=== PATIENT | female | born 1940 | race American Indian/Alaskan Native ===

== ENCOUNTER 2017-06-05 15:33 | Inpatient (IN) | payer OTHER, MEDICARE ==
[2017-06-05] MEDS ORDERED: ASPIRIN 81 MG CHEWABLE TABLETS PO ONE (16:10)
--- NOTE | 2017-06-05 16:10 | PDOC ---
History of Present Illness - General History Source: Patient, Family Exam Limitations: No Limitations - History of Present Illness Initial Comments: 06/05/17 16:42 The patient is a 77 year old female, with a significant past medical history of COPD, AFib (on Xarelto), hypertension, hyperlipidemia, CVA (brain stem), who presents to the emergency department with persistent cough, low-grade fever, and shortness of breath for about 4 days. The patient states she becomes more SOB with shorter distances but also states she was unable to walk far without being SOB prior to her recent onset of symptoms. The patient presents with family who reportedly took the patient to [facility] on Saturday, 06/03, where she had a CXR positive for left lower base atelectasis and sent home with "two antibiotics and an inhaler". The patient states her symptoms progressed yesterday, 06/04, despite starting the Abx and ventolin inhaler the night before and went to see a ticket machine operator (Dr. August Cuba) at [facility] where she had blood work and a chest CT which was normal. She denies chest pain, headache and dizziness. She denies fever, chills, nausea , vomit, diarrhea and constipation. She denies dysuria, frequency, urgency and hematuria. Allergies: NKDA PCP: Dr. Minal Cast, (patient states she is transferring care to Dr. Jose Wen) <Fabiana Cm - Last Filed: 06/05/17 16:57> - General History Source: Patient Exam Limitations: No Limitations <Carly Toure - Last Filed: 06/05/17 18:31> - General Chief Complaint: Shortness of Breath Stated Complaint: DIFF. BREATHING Time Seen by Provider: 06/05/17 16:10 Past History <Fabiana Cm - Last Filed: 06/05/17 16:57> - Past Medical History Anemia: No Asthma: No Cancer: No Cardiac Disorders: Yes (ASHD, SOB(HAD STRESS TEST)) CVA: No COPD: No CHF: No Dementia: No Diabetes: No GI Disorders: Yes (DIVERTICULOSIS, COLON POLYPS) Disorders: No HTN: Yes Hypercholesterolemia: Yes Liver Disease: No Seizures: No Thyroid Disease: Yes - Surgical History Abdominal Surgery: No Appendectomy: No Cardiac Surgery: No Cholecystectomy: No Lung Surgery: No Neurologic Surgery: No Orthopedic Surgery: Yes (carpo-tunnel right hand) - Suicide/Smoking/Psychosocial Hx Smoking History: Former smoker Have you smoked in the past 12 months: No If you are a former smoker, when did you quit?: 1989 Information on smoking cessation initiated: No Hx Alcohol Use: No Drug/Substance Use Hx: No Substance Use Type: None <Carly Toure - Last Filed: 06/05/17 18:31> - Past Medical History Allergies/Adverse Reactions: Allergies Allergy/AdvReac Type Severity Reaction Status Date / Time shellfish derived Allergy Verified 06/05/17 15:53 Home Medications: Ambulatory Orders Levothyroxine [Synthroid -] 75 mcg PO DAILY 06/11/11 Metoprolol Succinate [Toprol XL -] 50 mg PO DAILY 06/27/12 Cholecalciferol (Vitamin D3) [Vitamin D3] 32,000 unit PO DAILY 09/17/14 Albuterol Sulfate Inhaler - [Ventolin Hfa Inhaler -] 1 puff IH DAILY 06/05/17 Atorvastatin Ca [Lipitor] 40 mg PO HS 06/05/17 Lisinopril/Hydrochlorothiazide [Zestoretic 10-12.5 mg Tablet] 1 each PO DAILY Rivaroxaban [Xarelto -] 20 mg PO DAILY 06/05/17 Tiotropium [place] [Spiriva] 1 inh IH DAILY 06/05/17 Review of Systems - Review of Systems Able to Perform ROS?: Yes Comments:: 06/05/17 16:54 CONSTITUTIONAL: Absent: fever, no chills, no fatigue EYES: Absent: visual changes ENT: Absent: ear pain, no sore throat CARDIOVASCULAR: Absent: chest pain, no palpitations RESPIRATORY: (+) cough, SOB, FIELD GASTROINTESTINAL: Absent: abdominal pain, no nausea, no vomiting, no constipation, no diarrhea GENITOURINARY: Absent: dysuria, no frequency, no hematuria MUSCULOSKELETAL: Absent: back pain, no arthralgia, no myalgia SKIN: Absent: rash NEURO: Absent: headache <Fabiana Cm - Last Filed: 06/05/17 16:57> *Physical Exam - Vital Signs Last Vital Signs Temp Pulse Resp BP Pulse Ox 99.2 F 87 18 121/83 100 06/05/17 15:35 06/05/17 15:35 06/05/17 15:35 06/05/17 15:35 06/05/17 15:35 - Physical Exam Comments: 06/05/17 16:55 GENERAL: (+) The patient is in mild distress HEAD: Normal with no signs of trauma. EYES: PERRLA, EOMI, sclera anicteric, conjunctiva clear. ENT: Ears normal, nares patent, oropharynx clear without exudates. Moist mucous membranes. NECK: Normal range of motion, supple without lymphadenopathy, JVD, or masses. LUNGS: (+) diminished breath sounds, end-expiratory wheezes, ronchi diffusely. Conversational dyspnea. HEART:(+) Irregularly Irregular. normal S1 and S2 without murmur, rub or gallop. ABDOMEN: Soft, nontender, normoactive bowel sounds. No guarding, no rebound. No masses palpable. EXTREMITIES: Normal range of motion, no edema. No clubbing or cyanosis. No erythema, or tenderness. NEUROLOGICAL: Cranial nerves II through XII grossly intact. Normal speech. No focal neurological deficits. MUSCULOSKELETAL: Back non-tender to palpation, no CVA tenderness SKIN: Warm, Dry, normal turgor, no rashes or lesions noted. <Fabiana Cm - Last Filed: 06/05/17 16:57> - Vital Signs Last Vital Signs Temp Pulse Resp BP Pulse Ox 99.2 F 87 18 121/83 100 06/05/17 15:35 06/05/17 15:35 06/05/17 15:35 06/05/17 15:35 06/05/17 15:35 <Carly Toure - Last Filed: 06/05/17 18:31> ED Treatment Course - LABORATORY CBC & Chemistry Diagram: 06/05/17 16:30 06/05/17 16:30 <Carly Toure - Last Filed: 06/05/17 18:31> Medical Decision Making - Medical Decision Making 06/05/17 16:54 Dr. Cuba, Pulmonogist at [facility], was contacted who states he took the patient off cephtin and advised to continued doxycycline after having a normal CT. <Fabiana Cm - Last Filed: 06/05/17 16:57> - Medical Decision Making Ms Beltran is a 77-year-old female with a history of hypertension, hyperlipidemia , COPD (disease not on home O2). She has had an upper respiratory infection for the past 4-5 days. She was seated in urgent care 2 days ago, x-ray was performed and demonstrated possible left atelectasis. She was started on Ceftin as well as doxycycline. She was seen by her ticket machine operator yesterday, who performed a CT scan. Ceftin was discontinued, doxycycline alone was continued. Patient presents today due to worsening shortness of breath, as chest pain with coughing. Patient has noticed decreased exercise tolerance, increased dyspnea on exertion. On examination: Patient is awake, alert, oriented. Irregularly irregular, no murmur, tachycardic Lungs are rhonchorous, faint x-ray wheezing No abdominal tenderness No lower extremities edema 06/05/17 16:12 EKG: Afib rate of 111bpm, axis nml, intervals nml, t wave inversion v4-v6 06/05/17 18:10 Laboratory Tests 06/05/17 06/05/17 06/05/17 16:30 16:30 16:30 WBC 6.0 Hgb 14.3 Hct 41.5 Plt Count 183 INR 2.67 H VBG pH POC VBG pCO2 POC VBG pO2 Mixed VBG HCO3 Lactic Acid 1.6 06/05/17 17:00 WBC Hgb Hct Plt Count INR VBG pH 7.39 POC VBG pCO2 49.6 POC VBG pO2 38.4 Mixed VBG HCO3 29.5 H Lactic Acid 06/05/17 18:16 Laboratory Tests 06/05/17 16:30 Sodium 137 Potassium 4.0 Chloride 101 Carbon Dioxide 29 BUN 18 Creatinine 0.7 Random Glucose 107 H Magnesium 1.7 L Total Bilirubin 2.0 H Creatine Kinase 276 H Creatine Kinase Index 0.7 CK-MB (CK-2) 2.191 Troponin I 0.30 H B-Natriuretic Peptide 857.69 H TSH 6.56 H Of note: Trop elevated TSH elevated 06/05/17 18:28 At this time, DD includes Pneumonia, Afib with RVR de to fever Will give Aspirin Will do CT chest Will hold abx for now and plan to give if CT (+) Clinical Impression: Afib with RVR FEver, initial presentation Elevated troponin, initial presentation <Carly Toure - Last Filed: 06/05/17 18:31> *DC/Admit/Observation/Transfer - Attestations Scribe Attestion: 06/05/17 16:56 Documentation prepared by Fabiana Cm, acting as medical assistant secretary for Carly Toure MD <Fabiana Cm - Last Filed: 06/05/17 16:57> - Discharge Dispostion Admit: Yes <Carly Toure - Last Filed: 06/05/17 18:31> Diagnosis at time of Disposition: Elevated troponin Afib Qualifiers: Atrial fibrillation type: unspecified Qualified Code(s): I48.91 - Unspecified atrial fibrillation - Discharge Dispostion Condition at time of disposition: Stable - Referrals Referrals: Priya Baugh MD [Primary Care Provider] -
[2017-06-05] MEDS ORDERED: ASPIRIN 81 MG CHEWABLE TABLETS ONE (16:14)
[2017-06-05] MEDS ORDERED: SODIUM CHLORIDE 1,000 ML IV SCH (16:15)
[2017-06-05] MEDS ORDERED: ALBUTEROL SO4 2.5/IPRATROPIUM 0.5 INH SOL 3 ML VIAL.NEB. NEB ONE ×2 (16:24)
[2017-06-05] MEDS ORDERED: methylPREDNISolone NA SUCC 125 MG/2 ML VIAL IVPB ONE (16:24)
[2017-06-05] MEDS ORDERED: ACETAMINOPHEN 1000 MG/100 ML VIAL (NON FORMULARY) IVPB ONE (16:38)
[2017-06-05] MEDS ORDERED: ACETAMINOPHEN INJECTION 100 ML IVPB ONE (17:02)
[2017-06-05] MEDS ORDERED: methylPREDNISolone NA SUCC 125 MG/2 ML VIAL ONE (17:02)
[2017-06-05 17:13] LABS: BASO % 0.3 % (0-2.0); EOS % 0.4 % (0-4.5); HEMATOCRIT 41.5 % (32.4-45.2); HEMOGLOBIN 14.3 GM/dL (10.7-15.3); LYMPH % 21.6 % (8-40); MCHC 34.5 g/dl (32.0-36.0); MEAN CELL VOLUME 89.9 fl (80-96); MONO % 10.3 % (3.8-10.2); NEUT % 67.4 % (42.8-82.8); PLATELET COUNT 183 K/MM3 (134-434); RBC 4.62 M/mm3 (3.60-5.2); RDW 13.9 % (11.6-15.6)
[2017-06-05 17:33] LABS: VENOUS PC02 49.6 mmHg (38-52); VENOUS PH 7.39 (7.32-7.42); VENOUS PO2 38.4 mmHg (28-48)
[2017-06-05 17:35] LABS: INR 2.67 (0.82-1.09); PROTHROMBIN TIME (PATIENT) 30.2 SEC (9.7-13.0)
[2017-06-05 18:00] LABS: ANION GAP 7 (8-16); BLOOD UREA NITROGEN 18 mg/dL (7-18); CALCIUM 9.3 mg/dL (8.5-10.1); CHLORIDE 101 mmol/L (98-107); CO2 29 mmol/L (21-32); CREATININE 0.7 mg/dL (0.55-1.02); GLUCOSE,RANDOM 107 mg/dL (74-106); SGPT/ALT 24 U/L (12-78); SODIUM 137 mmol/L (136-145); TOT PROT 8.1 g/dl (6.4-8.2)
[2017-06-05 18:09] LABS: ALK PHOS 71 U/L (45-117); N-TERMINAL BNP 857.69 pg/ml (5-450)
[2017-06-05 18:11] LABS: MAGNESIUM 1.7 mg/dL (1.8-2.4)
[2017-06-05 18:12] LABS: SGOT/AST 32 U/L (15-37)
--- NOTE | 2017-06-05 19:14 | PN ---
Teaching Attending Note Name of Resident: Jodi Michaud ATTENDING PHYSICIAN STATEMENT I saw and evaluated the patient. I reviewed the resident's note and discussed the case with the resident. I agree with the resident's findings and plan as documented. SUBJECTIVE: 77 F with hx. of COPD, A-Fib (on Xarelto), HTN, HLD, HLD, CVA (brain stem), who presents with cough. shortness of breath and fever X 4 days. States she has becoming increasing short of breath walking several feet. States she was sent to which esdras had a CXR whoch was positive for Atelectesis and sent hoem on Abx/inhaler. States she recently saw her Typewriter Ribbon Winder (dr. Cuba) at [facility] and had a CT chest which was normal. No chest pain or pressure. OBJECTIVE: Physical: VS: Vital Signs Period Temp Pulse Resp BP Sys/Hendrix Pulse Ox Last 24 Hr 99.2 F-101.3 F 87-120 18-22 112-121/80-83 98-100 GEN: NAD, Resting in bed, AA)X3 HEENT: NCAT, PERRL, Throat without erythema or exudates CARD: RRR S1, S2 RESP: Bilateral coarse expiratory wheezing ABD: BSx4, NTD to palpation EXT: - C/C/E CBCD WBC 6.0 K/mm3 (4.0-10.0) 06/05/17 16:30 RBC 4.62 M/mm3 (3.60-5.2) 06/05/17 16:30 Hgb 14.3 GM/dL (10.7-15.3) 06/05/17 16:30 Hct 41.5 % (32.4-45.2) 06/05/17 16:30 MCV 89.9 fl (80-96) 06/05/17 16:30 MCHC 34.5 g/dl (32.0-36.0) 06/05/17 16:30 RDW 13.9 % (11.6-15.6) 06/05/17 16:30 Plt Count 183 K/MM3 (134-434) 06/05/17 16:30 MPV 10.0 fl (7.5-11.1) 06/05/17 16:30 CMP Sodium 137 mmol/L (136-145) 06/05/17 16:30 Potassium 4.0 mmol/L (3.5-5.1) 06/05/17 16:30 Chloride 101 mmol/L (98-107) 06/05/17 16:30 Carbon Dioxide 29 mmol/L (21-32) 06/05/17 16:30 Anion Gap 7 (8-16) L 06/05/17 16:30 BUN 18 mg/dL (7-18) 06/05/17 16:30 Creatinine 0.7 mg/dL (0.55-1.02) 06/05/17 16:30 Creat Clearance w eGFR > 60 (>60) 06/05/17 16:30 Random Glucose 107 mg/dL (74-106) H 06/05/17 16:30 Calcium 9.3 mg/dL (8.5-10.1) 06/05/17 16:30 Total Bilirubin 2.0 mg/dL (0.2-1.0) H 06/05/17 16:30 AST 32 U/L (15-37) 06/05/17 16:30 ALT 24 U/L (12-78) 06/05/17 16:30 Alkaline Phosphatase 71 U/L (45-117) 06/05/17 16:30 Total Protein 8.1 g/dl (6.4-8.2) 06/05/17 16:30 Albumin 4.0 g/dl (3.4-5.0) 06/05/17 16:30 CARDIAC ENZYMES Creatine Kinase 276 IU/L (26-192) H 06/05/17 16:30 Troponin I 0.30 ng/ml (0.00-0.05) H 06/05/17 16:30 CT CHEST- Small Pathcy bilateral LL and RUL alveolar infilterates, mild l. basilaar bronchietesis, Non-specific enlarged mediastinal LN EKG: Afib rate of 111bpm, axis nml, intervals nml, t wave inversion v4-v6 06/05/17 18:10 CXR: L. Base effusion? Cardiomehaly /congestion Home Medications Medication Instructions Recorded Levothyroxine [Synthroid -] 75 mcg PO DAILY 06/11/11 Metoprolol Succinate [Toprol XL -] 50 mg PO DAILY 06/27/12 Cholecalciferol (Vitamin D3) 32,000 unit PO DAILY 09/17/14 [Vitamin D3] Albuterol Sulfate Inhaler - 1 puff IH DAILY 06/05/17 [Ventolin Hfa Inhaler -] Atorvastatin Ca [Lipitor] 40 mg PO HS 06/05/17 Lisinopril/Hydrochlorothiazide 1 each PO DAILY 06/05/17 [Zestoretic 10-12.5 mg Tablet] Rivaroxaban [Xarelto -] 20 mg PO DAILY 06/05/17 Tiotropium [place] [Spiriva] 1 inh IH DAILY 06/05/17 ASSESSMENT AND PLAN: 77 F with hx. of COPD, A-Fib (on Xarelto), HTN, HLD, HLD, CVA (brain stem), who presents with cough. shortness of breath and fever X 4 days, being admitted for acute exacerbation of COPD, CHF, Elevated Troponin 1.) Acute Exacerbation of COPD - Duonebs ATC/PRN, Switch to Spiriva tomorrow - Steriods- Solu-Medrol continue - Sputum Cx - Pulm. Consult 2.) Acute CHF Exacerbation/?Systolic - ECHO- Nothing on file - Trend Trop/EKG - Lasix - Daily Weight - Strict I/O -NA/Fluid Restrict 3.) A-FIB - C.W Xarelto - Cardizem, due to bronchospasm 4.) Comunity Aquired Pneumonia/Mediastinal LN - Repeat DT chest in 6 weeks - Sputum Cx - CEF/Azithro - Urine AGS 5.) Troponin Elevation - No Chest pain - Most likely demand - Trend Trop/EKG - ASA - Lipid Panel/A1c - IF CP occurs Morphine/Nitro 6.) HTN - C/W Home meds 7.) DVT Ppx - Heparin [address] in Med-Tele
[2017-06-05 19:39] LABS: PLATELET ESTIMATE ADEQUATE
--- NOTE | 2017-06-05 20:11 | MSN ---
Admitting History and Physical - Primary Care Physician PCP: Dr. Minal Cast - Admission Chief Complaint: cough and shortness of breath History of Present Illness: Jolynn Beltran is a 77 year old female with a significant PMHx of COPD, Afib, HTN who presents with cough, low grade fever and shortness of breath for 3-4 days. Patient had begun to have increased shortness of breath with travelling short distances from her baseline. Patient visited a [facility] where CXR showed left lower lobe atelectasis and was started on abx and Ventolin inhaler. Despite abx, patient's condition worsened and she visited her certified wellness program coordinator where chest CT and blood work did not show any abnormalities. Patient presented today with increased shortness of breath, productive cough, chest pain related to coughing. Patient was seen and examined at the bedside. Patient endorsed chest pain associated with cough, shortness of breath, productive cough of yellow/clear sputum, orthopnea, diaphoresis. Patient denied headache, dizziness, blurry vision, chills, weakness, myalgias, abd pain, n/v/c/d. In the ED, course was notable for temp 101.3, Mg 1.7, trops 0.3, TSH 6.56. Patient was given solu-medrol, tylenol, duoneb, aspirin. 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 Cardiovascular: Yes: AFIB, HTN, Hyperlipdemia Pulmonary: Yes: COPD ...: No - Smoking History Smoking history: Former smoker Have you smoked in the past 12 months: No If you are a former smoker, when did you quit?: 1989 - Alcohol/Substance Use Hx Alcohol Use: No Home Medications - Allergies Allergies/Adverse Reactions: Allergies Allergy/AdvReac Type Severity Reaction Status Date / Time shellfish derived Allergy Verified 06/05/17 15:53 - Home Medications Home Medications: Ambulatory Orders Levothyroxine [Synthroid -] 75 mcg PO DAILY 06/11/11 Metoprolol Succinate [Toprol XL -] 50 mg PO DAILY 06/27/12 Cholecalciferol (Vitamin D3) [Vitamin D3] 32,000 unit PO DAILY 09/17/14 Albuterol Sulfate Inhaler - [Ventolin Hfa Inhaler -] 1 puff IH DAILY 06/05/17 Atorvastatin Ca [Lipitor] 40 mg PO HS 06/05/17 Lisinopril/Hydrochlorothiazide [Zestoretic 10-12.5 mg Tablet] 1 each PO DAILY Rivaroxaban [Xarelto -] 20 mg PO DAILY 06/05/17 Tiotropium [place] [Spiriva] 1 inh IH DAILY 06/05/17 Review of Systems - Review of Systems Constitutional: reports: Diaphoresis, Fever Eyes: reports: No Symptoms HENT: reports: No Symptoms Neck: reports: No Symptoms Cardiovascular: reports: Shortness of Breath Respiratory: reports: Cough (productive of yellow/clear sputum), Orthopnea, Wheezing Gastrointestinal: reports: No Symptoms Genitourinary: reports: No Symptoms Breasts: reports: No Symptoms Reported Musculoskeletal: reports: No Symptoms Integumentary: reports: No Symptoms Neurological: reports: Other (chronic weakness from CVA) Endocrine: reports: No Symptoms Hematology/Lymphatic: reports: No Symptoms Psychiatric: reports: No Symptoms Physical Examination Vital Signs: Vital Signs Temperature 101.3 F H 06/05/17 15:50 Pulse Rate 106 H 06/05/17 17:19 Respiratory Rate 22 06/05/17 17:19 Blood Pressure 112/82 06/05/17 17:19 O2 Sat by Pulse Oximetry (%) 98 06/05/17 18:23 Constitutional: Yes: No Distress, Calm, Diaphoresis, Obese Eyes: Yes: WNL, Conjunctiva Clear, EOM Intact HENT: Yes: WNL, Atraumatic, Normocephalic Neck: Yes: WNL, Supple, Trachea Midline Cardiovascular: Yes: Tachycardia, Pulse Irregular, S1, S2 Respiratory: Yes: Regular, Wheezes Gastrointestinal: Yes: WNL, Normal Bowel Sounds, Soft Musculoskeletal: Yes: WNL Extremities: Yes: WNL Edema: Yes Edema: LLE: 1+, RLE: 1+ Peripheral Pulses: Left Radial: 1+, Right Radial: 1+, Left Doralis Pedis: 1+, Right Dorsalis Pedis: 1+ Integumentary: Yes: WNL Neurological: Yes: WNL, Alert, Oriented Psychiatric: Yes: WNL, Alert, Oriented Labs: CBC, BMP 06/05/17 16:30 06/05/17 16:30 Imaging - Results Chest X-ray: Image Reviewed Cat Scan: Image Reviewed Problem List - Problems (1) Afib Code(s): I48.91 - UNSPECIFIED ATRIAL FIBRILLATION Qualifiers: Atrial fibrillation type: unspecified Qualified Code(s): I48.91 - Unspecified atrial fibrillation Assessment/Plan Patient is a 77y/o female with a significant PMHx of afib, HTN, COPD who presents with increased shortness of breath, productive cough, and fever. Dyspnea - likely related to COPD exacerbation vs pneumonia vs afib with RVR vs. CHF - temp 101.3, WBC within normal limits - Solumedrol, tylenol, duoneb given in ED - sputum culture, blood cultures - O2 as necessary - Continue methylprednisone 60mg - Continue duonebs qid and q4h prn - ceftriaxone 1gm, azithromycin 500mg - Pulmonology consulted, Dr. Davis, recs appreciated Elevated troponins - measured at 0.3, patient with a hx of afib with RVR - EKG shows T wave inversion in lateral leads - repeat EKG - trend troponins - aspirin - Lipid panel and HA1C Afib with RVR - continue Xarelto 20mg daily - cardizem 30mg once - resume home metoprolol tomorrow Acute CHF Decompensation - possible due to afib diagnosis - repeat EKG - Echo ordered - Lasix 40mg IV daily - strict IOs - daily weights HLD - atorvastatin 40mg HTN - lisinopril-HCTZ 10-12.5mg Elevated TSH - hx of hypothyroidism - on levothyroxine 75 mcg - TSH 6.56 - T4 levels ordered F/E/N - low sodium diet - NS at 125cc/hr - Mg low, repleted - replete as necessary DVT PPx - on Xarelto Disposition - admitted to telemetry
[2017-06-05] MEDS ORDERED: ALBUTEROL SO4 2.5/IPRATROPIUM 0.5 INH SOL 3 ML VIAL.NEB. NEB PRN (20:17)
[2017-06-05] MEDS ORDERED: FUROSEMIDE 40 MG/4 ML INJECTABLE VIAL ONE (20:22)
[2017-06-05] MEDS ORDERED: MAGNESIUM SULF 50% (8.12 MEQ/2 ML-1 GM VIAL) IVPB ONE (20:23)
[2017-06-05] MEDS: FUROSEMIDE 40 MG/4 ML INJECTABLE VIAL IVPUSH ONE ×2 (20:25→23:03)
--- NOTE | 2017-06-05 20:29 | HP ---
CHIEF COMPLAINT: dyspnea, fever PCP: Dr. Minal Cast HISTORY OF PRESENT ILLNESS: Patient is 77 yo F with a pmhx of A-fib (Xarelto), COPD, HTN, HLD, CVA, presented to the ED because of worsening dyspnea with cough , fever, and wheezing over the last 4 days. Patient says she spits up yellow sputum when she coughs. Patient also says she gets a pressure-like chest pain only when she coughs. Patient went to an urgent care 2 days ago which started her on Doxycycline and Ceftin. Patient then saw a repairer welding systems and equipment yesterday who told her to D/C Ceftin and only continue Doxy. Patient has not noticed any improvement in her symptoms. She denies using her inhaler more than normal. Patient does not remember ever having an Echo done before. She denies lower extremity swelling, dizziness, nausea, vomiting, diarrhea, dysuria. ER course was notable for: (1) EKG: Afib rate of 111bpm, axis nml, intervals nml, t wave inversion v4-v6 (2) Trop 0.30 (3) CXR: L. Base effusion? Cardiomegaly /congestion (4) Solu-Medrol 125mg Recent Travel: denies PAST MEDICAL HISTORY: per HPI Social History: Smoking: former smoker ,1989 quit Alcohol: denies Drugs: denies Family History: Allergies shellfish derived Allergy (Verified 06/05/17 15:53) HOME MEDICATIONS: Home Medications Medication Instructions Recorded Levothyroxine [Synthroid -] 75 mcg PO DAILY 06/11/11 Metoprolol Succinate [Toprol XL -] 50 mg PO DAILY 06/27/12 Cholecalciferol (Vitamin D3) 32,000 unit PO DAILY 09/17/14 [Vitamin D3] Albuterol Sulfate Inhaler - 1 puff IH DAILY 06/05/17 [Ventolin Hfa Inhaler -] Atorvastatin Ca [Lipitor] 40 mg PO HS 06/05/17 Lisinopril/Hydrochlorothiazide 1 each PO DAILY 06/05/17 [Zestoretic 10-12.5 mg Tablet] Rivaroxaban [Xarelto -] 20 mg PO DAILY 06/05/17 Tiotropium [place] [Spiriva] 1 inh IH DAILY 06/05/17 REVIEW OF SYSTEMS CONSTITUTIONAL: fevers, diophoresis Absent: chills, generalized weakness, malaise, loss of appetite, weight change HEENT: Absent: rhinorrhea, nasal congestion, throat pain, throat swelling, difficulty swallowing, mouth swelling, ear pain, eye pain, visual changes CARDIOVASCULAR: chest pain Absent: syncope, palpitations, lightheadedness, peripheral edema RESPIRATORY: cough, sob, wheezing Absent: dyspnea with exertion, orthopnea, stridor, hemoptysis GASTROINTESTINAL: Absent: abdominal pain, abdominal distension, nausea, vomiting, diarrhea, constipation, melena, hematochezia GENITOURINARY: Absent: dysuria, frequency, urgency, hesitancy, hematuria, flank pain, genital pain NEUROLOGIC: Absent: headache, focal weakness or paresthesias, dizziness, unsteady gait, seizure, mental status changes, bladder or bowel incontinence PSYCHIATRIC: Absent: anxiety, depression, suicidal or homicidal ideation, hallucinations. PHYSICAL EXAMINATION Vital Signs - 24 hr 06/05/17 06/05/17 06/05/17 15:35 15:50 17:19 Temperature 99.2 F 101.3 F H Pulse Rate 87 Pulse Rate [ 120 H 106 H Right Radial] Respiratory 18 22 22 Rate Blood Pressure 121/83 Blood Pressure 116/80 112/82 [Left Arm] O2 Sat by Pulse 100 98 98 Oximetry (%) 06/05/17 18:23 Temperature Pulse Rate Pulse Rate [ Right Radial] Respiratory Rate Blood Pressure Blood Pressure [Left Arm] O2 Sat by Pulse 98 Oximetry (%) GENERAL: A/o x3, dyspneic, diaphoretic HEAD: Normal with no signs of trauma. EYES:extraocular movements intact, sclera anicteric, conjunctiva clear. No lid lag. EARS, NOSE, THROAT: oropharynx clear without exudates. Moist mucous membranes. NECK: supple without lymphadenopathy, JVD, or masses. LUNGS: scattered wheezing b/l HEART: tachy, irregularly irregular ABDOMEN: Soft, nontender, not distended, normoactive bowel sounds, no guarding, no rebound, no masses. LOWER EXTREMITIES: 2+ pulses, warm, well-perfused. No calf tenderness. No peripheral edema. PSYCHIATRIC: Cooperative. Good eye contact. Appropriate mood and affect. Laboratory Results - last 24 hr 06/05/17 06/05/17 06/05/17 16:30 16:30 16:30 WBC 6.0 RBC 4.62 Hgb 14.3 Hct 41.5 MCV 89.9 MCH 31.0 MCHC 34.5 RDW 13.9 Plt Count 183 MPV 10.0 Neutrophils % 67.4 Lymphocytes % 21.6 Monocytes % 10.3 H Eosinophils % 0.4 Basophils % 0.3 Platelet Estimate Adequate PT with INR 30.20 H INR 2.67 H VBG pH POC VBG pCO2 POC VBG pO2 Mixed VBG HCO3 Sodium 137 Potassium 4.0 Chloride 101 Carbon Dioxide 29 Anion Gap 7 L BUN 18 Creatinine 0.7 Creat Clearance w eGFR > 60 Random Glucose 107 H Lactic Acid Calcium 9.3 Magnesium 1.7 L Total Bilirubin 2.0 H AST 32 ALT 24 Alkaline Phosphatase 71 Creatine Kinase 276 H Creatine Kinase Index 0.7 CK-MB (CK-2) 2.191 Troponin I 0.30 H B-Natriuretic Peptide 857.69 H Total Protein 8.1 Albumin 4.0 TSH 6.56 H 06/05/17 06/05/17 16:30 17:00 WBC RBC Hgb Hct MCV MCH MCHC RDW Plt Count MPV Neutrophils % Lymphocytes % Monocytes % Eosinophils % Basophils % Platelet Estimate PT with INR INR VBG pH 7.39 POC VBG pCO2 49.6 POC VBG pO2 38.4 Mixed VBG HCO3 29.5 H Sodium Potassium Chloride Carbon Dioxide Anion Gap BUN Creatinine Creat Clearance w eGFR Random Glucose Lactic Acid 1.6 Calcium Magnesium Total Bilirubin AST ALT Alkaline Phosphatase Creatine Kinase Creatine Kinase Index CK-MB (CK-2) Troponin I B-Natriuretic Peptide Total Protein Albumin TSH ASSESSMENT/PLAN: 77 yo F with a pmhx of A-fib (Xarelto), COPD, HTN, HLD, CVA, presented to the ED because of worsening dyspnea with cough, fever, and wheezing. #Acute COPD exacerbation -Duonebs PRN, standing -Solumedrol 1x 125mg in ED -Solumedrol 60mg BID -O2 -Pulm consult #Acute CHF exacerbation -FU Echo -Troponon first set 0.30, FU repeat -Lasix IV 40mg 1 x -strict I/o -fluid restrict #CAP -IV ABx: Ceftriaxone, Azithromycin -Urine antigens #A-fib -cont. Xarelto -Cardizem started 30mg -Held BB due to bronchospasms -Will continue in AM. Hold if bronchospasms did not resolve. #Elevated Trops -Trend Trops -ASA in ED -Likely demand -Hgb A1c/Lipid Panel #Hypothyroidism -Free T4 #HTN -Lisinopril/Hctz #DVT Ppx Xarelto Place in Med-Tele Visit type - Emergency Visit Emergency Visit: Yes ED Registration Date: 06/05/17 Care time: The patient presented to the Emergency Department on the above date and was hospitalized for further evaluation of their emergent condition. - New Patient This patient is new to me today: Yes Date on this admission: 06/06/17 - Critical Care Critical Care patient: No Hospitalist Screening - Colonoscopy Questionnaire Colonoscopy Questionnaire: Colonoscopy Questionnaire - Patient: 50 - 75 years old and never had a screening colonoscopy: Unknown History of colon or rectal polyps, or CA: Unknown History of IBD, Crohn's disease or UC: Unknown History of abdominal radiation therapy as a child: Unknown - Relative: 1 with colon or rectal CA, or polyps at age 60 or younger: Unknown Colon or rectal CA diagnosed at age 45 or younger: Unknown Multiple relatives with colon or rectal CA: Unknown - Outcome: Screening Result: Negative Screen
[2017-06-05] MEDS ORDERED: MAGNESIUM 1GM/D5W - 1 GM/100 ML IVPB IVPB ONE (20:30)
[2017-06-05] MEDS ORDERED: CEFTRIAXONE 1 GM/50 ML BAG ONE (21:00)
[2017-06-05] MEDS ORDERED: dilTIAZem HCL 30 MG TABLET (FP) PO ONE (21:15)
[2017-06-05] MEDS: CEFTRIAXONE 1 GM in DEXTROSE 5%-WATER - 50 ML IVPB SCH (23:03)
[2017-06-05] MEDS: ATORVASTATIN CA 40 MG TABLET (FP) PO SCH (23:03)
[2017-06-05] MEDS: methylPREDNISolone NA SUCC 125 MG/2 ML VIAL IVPUSH SCH (23:28)
[2017-06-06] MEDS ORDERED: ALBUTEROL SO4 0.083% IH SOL 2.5 MG/3 ML VIAL.NEB. NEB PRN (00:25)
[2017-06-06] MEDS: AZITHROMYCIN IVPB 500 MG in DEXTROSE 5%-WATER - 250 ML IVPB SCH ×2 (00:37→11:35)
[2017-06-06 05:12] VITALS: BMI 42.5
[2017-06-06] MEDS: LEVOTHYROXINE NA 75 MCG TABLET (FP) PO SCH (06:39)
[2017-06-06 07:09] LABS: HEMATOCRIT 39.8 % (32.4-45.2); HEMOGLOBIN 13.8 GM/dL (10.7-15.3); MCH 30.9 pg (25.7-33.7); MCHC 34.5 g/dl (32.0-36.0); MEAN CELL VOLUME 89.6 fl (80-96); MEAN PLT VOLUME 9.5 fl (7.5-11.1); PLATELET COUNT 171 K/MM3 (134-434); RBC 4.45 M/mm3 (3.60-5.2); RDW 14.2 % (11.6-15.6); WHITE BLOOD COUNT 3.8 K/mm3 (4.0-10.0)
[2017-06-06 07:11] LABS: ALBUMIN 3.5 g/dl (3.4-5.0); ANION GAP 8 (8-16); BLOOD UREA NITROGEN 26 mg/dL (7-18); CALCIUM 8.9 mg/dL (8.5-10.1); CHLORIDE 102 mmol/L (98-107); CHOLESTEROL 108 mg/dL (50-200); CO2 29 mmol/L (21-32); CREATININE 0.9 mg/dL (0.55-1.02); GLUCOSE,RANDOM 185 mg/dL (74-106); MAGNESIUM 1.9 mg/dL (1.8-2.4); PHOSPHOROUS 3.8 mg/dL (2.5-4.9); POTASSIUM 3.3 mmol/L (3.5-5.1); SGOT/AST 23 U/L (15-37); SGPT/ALT 22 U/L (12-78); SODIUM 139 mmol/L (136-145); TOT PROT 7.7 g/dl (6.4-8.2); TRIGLYCERIDES 84 mg/dL (35-160)
[2017-06-06 07:13] LABS: ALK PHOS 69 U/L (45-117); BILIRUBIN,TOTAL 1.1 mg/dL (0.2-1.0); HDL CHOLESTEROL 44 mg/dL (40-60)
[2017-06-06 07:24] LABS: INR 1.61 (0.82-1.09); PROTHROMBIN TIME (PATIENT) 18.2 SEC (9.7-13.0)
[2017-06-06] MEDS: ALBUTEROL SO4 2.5/IPRATROPIUM 0.5 INH SOL 3 ML VIAL.NEB. NEB SCH ×4 (08:10→20:48)
[2017-06-06] MEDS ORDERED: cefTRIAXone SODIUM 1 GM VIAL ONE (08:13)
[2017-06-06] MEDS ORDERED: DEXTROSE 5%-WATER - 50 ML IVPB ONE (08:13)
[2017-06-06] MEDS ORDERED: PT OWN MED DRAWER 7, Y5N ONE ×2 (08:13→09:24)
[2017-06-06] MEDS: RIVAROXABAN 20 MG TABLET PO SCH (09:03)
[2017-06-06] MEDS: LISINOPRIL 10 MG TABLET (FP) PO SCH (09:03)
[2017-06-06] MEDS: methylPREDNISolone NA SUCC 125 MG/2 ML VIAL IVPUSH SCH ×2 (09:04→22:23)
[2017-06-06] MEDS: CEFTRIAXONE 1 GM in DEXTROSE 5%-WATER - 50 ML IVPB SCH (09:04)
[2017-06-06] MEDS: HYDROCHLOROTHIAZIDE 12.5 MG CAPSULE (FP) PO SCH (09:04)
[2017-06-06] MEDS ORDERED: POTASSIUM CHLORIDE TABS 20 MEQ TABLET.ER (FP) PO ONE ×2 (09:35→13:30)
[2017-06-06] MEDS ORDERED: [UNRECOGNIZED DRUG - OTHER] PO SCH (10:00)
[2017-06-06] MEDS ORDERED: [UNRECOGNIZED DRUG - OTHER] PO SCH (10:00)
[2017-06-06] MEDS ORDERED: HYDROCHLOROTHIAZIDE PO SCH (10:00)
[2017-06-06] MEDS ORDERED: CHOLECALCIFEROL PO SCH (10:00)
[2017-06-06] MEDS ORDERED: LISINOPRIL PO SCH (10:00)
--- NOTE | 2017-06-06 12:16 | CON.PULM ---
Consult Consult Specialty:: PULMONARY Referred by:: Dr. Duval Reason for Consultation:: shortness of breath - History of Present Illness Chief Complaint: shortness of breath History of Present Illness: 77yo female with h/o HTN, hyperlipidemia, COPD, atrial fibrillation on anticoagulation, h/o CVA who was admitted with worsening shortness of breath, cough x 4 days. She reports back discomfort but no chest pain or palpitations. + cough initially with white sputum mixed with yellow but now mostly nonproductive cough and significant wheezing. Reports subjective fevers, chills. No sick contacts or recent travel. Saw her special police who sent her for a CT chest, report pending but she states was not normal. She is a remote smoker, smoked about 1 PPD x 20 years, quit 25 years ago. Not on home O2, maintained on spiriva. - History Source History Provided By: Patient, Medical Record Limitations to Obtaining History: No Limitations - Past Medical History [employer]: Yes: CVA Cardio/Vascular: Yes: AFIB, HTN, Hyperlipdemia Pulmonary: Yes: COPD ...: No - Alcohol/Substance Use Hx Alcohol Use: No - Smoking History Smoking history: Former smoker Have you smoked in the past 12 months: No If you are a former smoker, when did you quit?: 1989 Home Medications - Allergies Allergies/Adverse Reactions: Allergies Allergy/AdvReac Type Severity Reaction Status Date / Time shellfish derived Allergy Verified 06/05/17 15:53 - Home Medications Home Medications: Ambulatory Orders Levothyroxine [Synthroid -] 75 mcg PO DAILY 06/11/11 Metoprolol Succinate [Toprol XL -] 50 mg PO DAILY 06/27/12 Cholecalciferol (Vitamin D3) [Vitamin D3] 32,000 unit PO DAILY 09/17/14 Albuterol Sulfate Inhaler - [Ventolin Hfa Inhaler -] 1 puff IH DAILY 06/05/17 Atorvastatin Ca [Lipitor] 40 mg PO HS 06/05/17 Lisinopril/Hydrochlorothiazide [Zestoretic 10-12.5 mg Tablet] 1 each PO DAILY Rivaroxaban [Xarelto -] 20 mg PO DAILY 06/05/17 Tiotropium [place] [Spiriva] 1 inh IH DAILY 06/05/17 Review of Systems - Review of Systems Constitutional: reports: Chills, Fever, Weakness Eyes: denies: Recent Change in Vision HENT: denies: Nasal Congestion, Throat Pain Neck: denies: Stiffness, Tenderness Cardiovascular: reports: Shortness of Breath. denies: Chest Pain, Edema, Palpitations Respiratory: reports: Cough, Exercise Intolerance, SOB on Exertion, Wheezing. denies: Hemoptysis Gastrointestinal: denies: Abdominal Pain, Nausea, Vomiting Genitourinary: denies: Dysuria, Hematuria Musculoskeletal: reports: Back Pain Neurological: denies: Dizziness, Headache Endocrine: denies: Unexplained Weight Loss Physical Exam Vital Sings: Vital Signs Temperature 99.2 F 06/06/17 06:00 Pulse Rate 57 L 06/06/17 06:00 Respiratory Rate 20 06/06/17 06:00 Blood Pressure 109/74 06/06/17 06:00 O2 Sat by Pulse Oximetry (%) 95 06/05/17 22:00 Constitutional: Yes: Anxious Eyes: Yes: Conjunctiva Clear, EOM Intact HENT: Yes: Atraumatic, Normocephalic Neck: Yes: Supple Cardiovascular: Yes: Regular Rate and Rhythm Respiratory: Yes: Rhonchi, Wheezes ...Clubbing: No Gastrointestinal: Yes: Normal Bowel Sounds, Soft. No: Tenderness Edema: No Neurological: Yes: Alert, Oriented Labs: CBC, BMP 06/06/17 06:20 06/06/17 06:20 Imaging - Results Chest X-ray: Report Reviewed, Image Reviewed Cat Scan: Report Reviewed, Image Reviewed (patchy infiltrates bilaterally, lingular focal infiltrate) Problem List - Problems (1) COPD with acute exacerbation Code(s): J44.1 - CHRONIC OBSTRUCTIVE PULMONARY DISEASE W (ACUTE) EXACERBATION (2) Pneumonia Code(s): J18.9 - PNEUMONIA, UNSPECIFIED ORGANISM (3) Sepsis Code(s): A41.9 - SEPSIS, UNSPECIFIED ORGANISM (4) Afib Code(s): I48.91 - UNSPECIFIED ATRIAL FIBRILLATION Qualifiers: Atrial fibrillation type: unspecified Qualified Code(s): I48.91 - Unspecified atrial fibrillation (5) Elevated troponin Code(s): R74.8 - ABNORMAL LEVELS OF OTHER SERUM ENZYMES (6) Hypertension Code(s): I10 - ESSENTIAL (PRIMARY) HYPERTENSION (7) Hyperlipidemia Code(s): E78.5 - HYPERLIPIDEMIA, UNSPECIFIED Assessment/Plan Acute COPD Exacerbation Pneumonia Sepsis +Troponins likely Demand Ischemia Atrial Fibrillation HTN Hyperlipidemia h/o CVA - agree with IV medrol - inhaled bronchodilators standing and PRN - antibiotics - f/u cultures - O2 to keep SpO2 >90% - rate control - continue anticoagulation - will need outpt PFTs and f/u of chest imaging to ensure resolution Thank you for this consult Nas Escamilla MD
--- NOTE | 2017-06-06 12:56 | EKG ---
Test Reason : Blood Pressure : / mmHG Vent. Rate : 089 BPM Atrial Rate : 062 BPM P-R Int : 000 ms QRS Dur : 102 ms QT Int : 318 ms P-R-T Axes : 000 -21 -36 degrees QTc Int : 386 ms ATRIAL FIBRILLATION NONSPECIFIC T WAVE ABNORMALITY ABNORMAL ECG WHEN COMPARED WITH ECG OF 05-JUN-2017 15:56, NONSPECIFIC T WAVE ABNORMALITY, WORSE IN LATERAL LEADS Confirmed by NIK CASTRO, DILMA ([id number]) on 06/06/2017 12:55:36 PM Referred By: Confirmed By:DILMA ZARAGOZA MD
--- NOTE | 2017-06-06 12:59 | EKG ---
Test Reason : Blood Pressure : / mmHG Vent. Rate : 111 BPM Atrial Rate : 119 BPM P-R Int : 000 ms QRS Dur : 086 ms QT Int : 338 ms P-R-T Axes : 000 -22 -31 degrees QTc Int : 459 ms ATRIAL FIBRILLATION WITH RAPID VENTRICULAR RESPONSE ABNORMAL ECG WHEN COMPARED WITH ECG OF 12-OCT-2000 07:32, ATRIAL FIBRILLATION HAS REPLACED SINUS RHYTHM VENT. RATE HAS INCREASED BY 54 BPM Confirmed by NIK CASTRO, DILMA ([id number]) on 06/06/2017 12:59:11 PM Referred By: Confirmed By:DILMA ZARAGOZA MD
[2017-06-06] MEDS ORDERED: INSULIN (NOVOLOG) ASPART 100 UNITS/ML 10ML VIAL ONE (13:47)
--- NOTE | 2017-06-06 16:29 | PN ---
Physical Exam: SUBJECTIVE: Patient seen and examined No acute events overnight. Feels better this morning. OBJECTIVE: Vital Signs Period Temp Pulse Resp BP Sys/Hendrix Pulse Ox Last 24 Hr 97.0 F-99.2 F 57-106 19-22 99-121/38-82 94-98 GENERAL: A/o x3, HEAD: Normal with no signs of trauma. EYES: Extraocular movements intact, sclera anicteric, conjunctiva clear. No lid lag. EARS, NOSE, THROAT: oropharynx clear without exudates. Moist mucous membranes. NECK: supple without lymphadenopathy, JVD, or masses. LUNGS: scattered expiratory wheezing/rhonchi HEART: tachy, irregularly irregular ABDOMEN: Soft, nontender, not distended, normoactive bowel sounds, no guarding, no rebound, no masses. LOWER EXTREMITIES: 2+ pulses, warm, well-perfused. No calf tenderness. No peripheral edema. PSYCHIATRIC: Cooperative. Good eye contact. Appropriate mood and affect. Laboratory Results - last 24 hr 06/05/17 06/05/17 06/05/17 16:30 16:30 16:30 WBC 6.0 RBC 4.62 Hgb 14.3 Hct 41.5 MCV 89.9 MCH 31.0 MCHC 34.5 RDW 13.9 Plt Count 183 MPV 10.0 Neutrophils % 67.4 Lymphocytes % 21.6 Monocytes % 10.3 H Eosinophils % 0.4 Basophils % 0.3 Platelet Estimate Adequate PT with INR 30.20 H INR 2.67 H VBG pH POC VBG pCO2 POC VBG pO2 Mixed VBG HCO3 Sodium 137 Potassium 4.0 Chloride 101 Carbon Dioxide 29 Anion Gap 7 L BUN 18 Creatinine 0.7 Creat Clearance w eGFR > 60 Random Glucose 107 H Hemoglobin A1c % Lactic Acid Calcium 9.3 Phosphorus Magnesium 1.7 L Total Bilirubin 2.0 H AST 32 ALT 24 Alkaline Phosphatase 71 Creatine Kinase 276 H Creatine Kinase Index 0.7 CK-MB (CK-2) 2.191 Troponin I 0.30 H B-Natriuretic Peptide 857.69 H Total Protein 8.1 Albumin 4.0 Triglycerides Cholesterol Total LDL Cholesterol HDL Cholesterol TSH 6.56 H Free T4 06/05/17 06/05/17 06/05/17 16:30 17:00 23:50 WBC RBC Hgb Hct MCV MCH MCHC RDW Plt Count MPV Neutrophils % Lymphocytes % Monocytes % Eosinophils % Basophils % Platelet Estimate PT with INR INR VBG pH 7.39 POC VBG pCO2 49.6 POC VBG pO2 38.4 Mixed VBG HCO3 29.5 H Sodium Potassium Chloride Carbon Dioxide Anion Gap BUN Creatinine Creat Clearance w eGFR Random Glucose Hemoglobin A1c % Lactic Acid 1.6 Calcium Phosphorus Magnesium Total Bilirubin AST ALT Alkaline Phosphatase Creatine Kinase Creatine Kinase Index CK-MB (CK-2) Troponin I 0.27 H B-Natriuretic Peptide Total Protein Albumin Triglycerides Cholesterol Total LDL Cholesterol HDL Cholesterol TSH Free T4 06/06/17 06/06/17 06/06/17 06:20 06:20 06:20 WBC 3.8 L D RBC 4.45 Hgb 13.8 Hct 39.8 MCV 89.6 MCH 30.9 MCHC 34.5 RDW 14.2 Plt Count 171 MPV 9.5 Neutrophils % Lymphocytes % Monocytes % Eosinophils % Basophils % Platelet Estimate PT with INR 18.20 H INR 1.61 H D VBG pH POC VBG pCO2 POC VBG pO2 Mixed VBG HCO3 Sodium 139 Potassium 3.3 L Chloride 102 Carbon Dioxide 29 Anion Gap 8 BUN 26 H Creatinine 0.9 Creat Clearance w eGFR > 60 Random Glucose 185 H Hemoglobin A1c % Lactic Acid Calcium 8.9 Phosphorus 3.8 Magnesium 1.9 Total Bilirubin 1.1 H D AST 23 ALT 22 Alkaline Phosphatase 69 Creatine Kinase Creatine Kinase Index CK-MB (CK-2) Troponin I B-Natriuretic Peptide Total Protein 7.7 Albumin 3.5 Triglycerides 84 Cholesterol 108 Total LDL Cholesterol 57 HDL Cholesterol 44 TSH Free T4 1.09 06/06/17 06/06/17 06:20 06:20 WBC RBC Hgb Hct MCV MCH MCHC RDW Plt Count MPV Neutrophils % Lymphocytes % Monocytes % Eosinophils % Basophils % Platelet Estimate PT with INR INR VBG pH POC VBG pCO2 POC VBG pO2 Mixed VBG HCO3 Sodium Potassium Chloride Carbon Dioxide Anion Gap BUN Creatinine Creat Clearance w eGFR Random Glucose Hemoglobin A1c % 6.3 H Lactic Acid Calcium Phosphorus Magnesium Total Bilirubin AST ALT Alkaline Phosphatase Creatine Kinase Creatine Kinase Index CK-MB (CK-2) Troponin I B-Natriuretic Peptide Total Protein Albumin Triglycerides Cholesterol Total LDL Cholesterol HDL Cholesterol TSH Free T4 Cancelled Active Medications Generic Name Dose Route Start Last Admin Trade Name Freq PRN Reason Stop Dose Admin Albuterol Sulfate 1 amp 06/06/17 00:25 Ventolin 0.083% Nebulizer Soln - NEB Q4H PRN SHORT OF BREATH/WHEEZING Albuterol/Ipratropium 1 amp 06/06/17 08:00 06/06/17 15:54 Duoneb - NEB 1 amp RQID DALE Administration Atorvastatin Calcium 40 mg 06/05/17 22:00 06/05/17 23:03 Lipitor - PO Not Given HS DALE Hydrochlorothiazide 12.5 mg 06/06/17 10:00 06/06/17 09:04 Hctz - PO 12.5 mg DAILY DALE Administration Azithromycin 500 mg/ Dextrose 250 mls @ 250 mls/hr 06/05/17 20:30 06/06/17 11 :35 IVPB 250 mls/hr DAILY DALE Administration Ceftriaxone Sodium 1 gm/ 50 mls @ 100 mls/hr 06/05/17 20:30 06/06/17 09:04 Dextrose IVPB 100 mls/hr DAILY DALE Administration Levothyroxine Sodium 75 mcg 06/06/17 07:00 06/06/17 06:39 Synthroid - PO 75 mcg DAILY@0700 DALE Administration Lisinopril 10 mg 06/06/17 10:00 06/06/17 09:03 Prinivil PO 10 mg DAILY DALE Administration Methylprednisolone Sodium Succinate 60 mg 06/05/17 22:00 06/06/17 09:04 Solu-Medrol - IVPUSH 60 mg BID DALE Administration Metoprolol Succinate 50 mg 06/06/17 10:00 06/06/17 09:03 Toprol Xl - PO 50 mg DAILY DALE Administration Rivaroxaban 20 mg 06/06/17 10:00 06/06/17 09:03 Xarelto - PO 20 mg DAILY DALE Administration ASSESSMENT/PLAN: 77 yo F with a pmhx of A-fib (Xarelto), COPD, HTN, HLD, CVA, presented to the ED because of worsening dyspnea with cough, fever, and wheezing. #Acute COPD exacerbation -Duonebs PRN, standing -Solumedrol 1x 125mg in ED -Solumedrol 60mg BID -O2 -Pulm consult #CAP -IV ABx: Ceftriaxone, Azithromycin -Urine antigens #A-fib -cont. Xarelto -toprol xl 50 po daily #Hypothyroidism -continue synthroid #HTN -Lisinopril/Hctz #DVT Ppx Xarelto Visit type - Emergency Visit Emergency Visit: Yes ED Registration Date: 06/05/17 Care time: The patient presented to the Emergency Department on the above date and was hospitalized for further evaluation of their emergent condition. - New Patient This patient is new to me today: Yes Date on this admission: 06/06/17 - Critical Care Critical Care patient: No
--- NOTE | 2017-06-06 19:22 | PN ---
Teaching Attending Note Name of Resident: Junior Ortiz ATTENDING PHYSICIAN STATEMENT I saw and evaluated the patient. I reviewed the resident's note and discussed the case with the resident. I agree with the resident's findings and plan as documented. SUBJECTIVE: Patient still SOB but feels she is improving. OBJECTIVE: Vital Signs Period Temp Pulse Resp BP Sys/Hendrix Pulse Ox Last 24 Hr 97.0 F-99.2 F 57-97 19-22 99-121/38-74 94-95 HEART: Irregular LUNGS: Expiratory wheezes on left, crackles in right mid lung ABDOMEN: Obese, soft, non-tender, non-distended, normal BS EXTREMITIES: No edema Laboratory Results - last 24 hr 06/05/17 06/05/17 06/06/17 16:30 23:50 06:20 WBC 3.8 L D RBC 4.45 Hgb 13.8 Hct 39.8 MCV 89.6 MCH 30.9 MCHC 34.5 RDW 14.2 Plt Count 171 MPV 9.5 Platelet Estimate Adequate PT with INR INR Sodium Potassium Chloride Carbon Dioxide Anion Gap BUN Creatinine Creat Clearance w eGFR Random Glucose Hemoglobin A1c % Calcium Phosphorus Magnesium Total Bilirubin AST ALT Alkaline Phosphatase Troponin I 0.27 H Total Protein Albumin Triglycerides Cholesterol Total LDL Cholesterol HDL Cholesterol Free T4 06/06/17 06/06/17 06/06/17 06:20 06:20 06:20 WBC RBC Hgb Hct MCV MCH MCHC RDW Plt Count MPV Platelet Estimate PT with INR 18.20 H INR 1.61 H D Sodium 139 Potassium 3.3 L Chloride 102 Carbon Dioxide 29 Anion Gap 8 BUN 26 H Creatinine 0.9 Creat Clearance w eGFR > 60 Random Glucose 185 H Hemoglobin A1c % Calcium 8.9 Phosphorus 3.8 Magnesium 1.9 Total Bilirubin 1.1 H D AST 23 ALT 22 Alkaline Phosphatase 69 Troponin I Total Protein 7.7 Albumin 3.5 Triglycerides 84 Cholesterol 108 Total LDL Cholesterol 57 HDL Cholesterol 44 Free T4 1.09 Cancelled 06/06/17 06:20 WBC RBC Hgb Hct MCV MCH MCHC RDW Plt Count MPV Platelet Estimate PT with INR INR Sodium Potassium Chloride Carbon Dioxide Anion Gap BUN Creatinine Creat Clearance w eGFR Random Glucose Hemoglobin A1c % 6.3 H Calcium Phosphorus Magnesium Total Bilirubin AST ALT Alkaline Phosphatase Troponin I Total Protein Albumin Triglycerides Cholesterol Total LDL Cholesterol HDL Cholesterol Free T4 Current Medications Generic Name Dose Route Start Last Admin Trade Name Freq PRN Reason Stop Dose Admin Albuterol Sulfate 1 amp 06/06/17 00:25 Ventolin 0.083% Nebulizer Soln - NEB Q4H PRN SHORT OF BREATH/WHEEZING Albuterol/Ipratropium 1 amp 06/06/17 08:00 06/06/17 15:54 Duoneb - NEB 1 amp RQID DALE Administration Atorvastatin Calcium 40 mg 06/05/17 22:00 06/05/17 23:03 Lipitor - PO Not Given HS DALE Hydrochlorothiazide 12.5 mg 06/06/17 10:00 06/06/17 09:04 Hctz - PO 12.5 mg DAILY DALE Administration Azithromycin 500 mg/ Dextrose 250 mls @ 250 mls/hr 06/05/17 20:30 06/06/17 11 :35 IVPB 250 mls/hr DAILY DALE Administration Ceftriaxone Sodium 1 gm/ 50 mls @ 100 mls/hr 06/05/17 20:30 06/06/17 09:04 Dextrose IVPB 100 mls/hr DAILY DALE Administration Levothyroxine Sodium 75 mcg 06/06/17 07:00 06/06/17 06:39 Synthroid - PO 75 mcg DAILY@0700 DALE Administration Lisinopril 10 mg 06/06/17 10:00 06/06/17 09:03 Prinivil PO 10 mg DAILY DALE Administration Methylprednisolone Sodium Succinate 60 mg 06/05/17 22:00 06/06/17 09:04 Solu-Medrol - IVPUSH 60 mg BID DALE Administration Metoprolol Succinate 50 mg 06/06/17 10:00 06/06/17 09:03 Toprol Xl - PO 50 mg DAILY DALE Administration Rivaroxaban 20 mg 06/06/17 10:00 06/06/17 09:03 Xarelto - PO 20 mg DAILY DALE Administration ASSESSMENT AND PLAN: This is a 77 year old woman with a history of atrial fib, COPD, HTN, hyperlipidemia, CVA who presented to the ED with cough, fever, and wheezing. 1. Acute exacerbation of COPD - Continue SoluMedrol, DuoNeb, albuterol nebs as needed - Oxygen as needed to keep saturation >90% 2. Sepsis secondary to pneumonia - Afebrile - Continue Rocephin, Zithromax 3. Hypokalemia - Replete potassium 4. Hypomagnesemia - Improving 5. Atrial fibrillation, permanent - Continue Toprol XL, Xarelto 6. Demand ischemia 7. Hypothyroidism - Continue Synthroid 8. HTN - Continune Lisinopril, HCTZ, Toprol XL 9. Hyperlipidemia - Continue Lipitor
[2017-06-06] MEDS: ATORVASTATIN CA 40 MG TABLET (FP) PO SCH (22:23)
[2017-06-07] MEDS: LEVOTHYROXINE NA 75 MCG TABLET (FP) PO SCH (06:35)
[2017-06-07 07:03] LABS: BASO % 0.1 % (0-2.0); HEMATOCRIT 41.6 % (32.4-45.2); LYMPH % 6.6 % (8-40); MCH 30.7 pg (25.7-33.7); MCHC 33.6 g/dl (32.0-36.0); MEAN CELL VOLUME 91.1 fl (80-96); MEAN PLT VOLUME 9.8 fl (7.5-11.1); MONO % 3.8 % (3.8-10.2); NEUT % 89.5 % (42.8-82.8); PLATELET COUNT 251 K/MM3 (134-434); RBC 4.57 M/mm3 (3.60-5.2); RDW 14.5 % (11.6-15.6); WHITE BLOOD COUNT 18.3 K/mm3 (4.0-10.0)
[2017-06-07 07:43] LABS: ALBUMIN 3.8 g/dl (3.4-5.0); ANION GAP 8 (8-16); BLOOD UREA NITROGEN 39 mg/dL (7-18); CALCIUM 9.7 mg/dL (8.5-10.1); CHLORIDE 103 mmol/L (98-107); CO2 29 mmol/L (21-32); GLUCOSE,RANDOM 177 mg/dL (74-106); POTASSIUM 4.1 mmol/L (3.5-5.1); SGOT/AST 22 U/L (15-37); SGPT/ALT 23 U/L (12-78); SODIUM 140 mmol/L (136-145)
[2017-06-07 07:45] LABS: ALK PHOS 66 U/L (45-117); BILIRUBIN,TOTAL 0.7 mg/dL (0.2-1.0); CREATININE 1.2 mg/dL (0.55-1.02); TOT PROT 8.3 g/dl (6.4-8.2)
[2017-06-07] MEDS: ALBUTEROL SO4 2.5/IPRATROPIUM 0.5 INH SOL 3 ML VIAL.NEB. NEB SCH ×4 (08:00→20:16)
[2017-06-07] MEDS ORDERED: cefTRIAXone SODIUM 1 GM VIAL ONE (09:06)
[2017-06-07] MEDS ORDERED: DEXTROSE 5%-WATER - 50 ML IVPB ONE (09:06)
--- NOTE | 2017-06-07 09:19 | PN ---
Physical Exam: SUBJECTIVE: Patient seen and examined No acute events overnight. Patient feels well this morning. Has no complaints. States her breathing is better. OBJECTIVE: Vital Signs Period Temp Pulse Resp BP Sys/Hendrix Pulse Ox Last 24 Hr 97.9 F-98.9 F 79-97 20-22 94-127/53-84 94-95 GENERAL: A/o x3, HEAD: Normal with no signs of trauma. EYES: Extraocular movements intact, sclera anicteric, conjunctiva clear. No lid lag. EARS, NOSE, THROAT: oropharynx clear without exudates. Moist mucous membranes. NECK: supple without lymphadenopathy, JVD, or masses. LUNGS: Clear bilaterally with mild rhonchi in right mid lung HEART: irregularly irregular ABDOMEN: Soft, nontender, not distended, normoactive bowel sounds, no guarding, no rebound, no masses. LOWER EXTREMITIES: 2+ pulses, warm, well-perfused. No calf tenderness. No peripheral edema. PSYCHIATRIC: Cooperative. Good eye contact. Appropriate mood and affect. Laboratory Results - last 24 hr 06/06/17 06/07/17 06/07/17 06:20 05:00 05:00 WBC 18.3 H D RBC 4.57 Hgb 14.0 Hct 41.6 MCV 91.1 MCH 30.7 MCHC 33.6 RDW 14.5 Plt Count 251 D MPV 9.8 Neutrophils % 89.5 H D Lymphocytes % 6.6 L D Monocytes % 3.8 Eosinophils % 0.0 D Basophils % 0.1 Sodium 140 Potassium 4.1 Chloride 103 Carbon Dioxide 29 Anion Gap 8 BUN 39 H Creatinine 1.2 H Creat Clearance w eGFR 43.56 Random Glucose 177 H Calcium 9.7 Total Bilirubin 0.7 D AST 22 ALT 23 Alkaline Phosphatase 66 Total Protein 8.3 H Albumin 3.8 Free T4 1.09 Active Medications Generic Name Dose Route Start Last Admin Trade Name Freq PRN Reason Stop Dose Admin Albuterol Sulfate 1 amp 06/06/17 00:25 Ventolin 0.083% Nebulizer Soln - NEB Q4H PRN SHORT OF BREATH/WHEEZING Albuterol/Ipratropium 1 amp 06/06/17 08:00 06/07/17 08:00 Duoneb - NEB 1 amp RQID DALE Administration Atorvastatin Calcium 40 mg 06/05/17 22:00 06/06/17 22:23 Lipitor - PO 40 mg HS DALE Administration Hydrochlorothiazide 12.5 mg 06/06/17 10:00 06/06/17 09:04 Hctz - PO 12.5 mg DAILY DALE Administration Azithromycin 500 mg/ Dextrose 250 mls @ 250 mls/hr 06/05/17 20:30 06/06/17 11 :35 IVPB 250 mls/hr DAILY DALE Administration Ceftriaxone Sodium 1 gm/ 50 mls @ 100 mls/hr 06/05/17 20:30 06/06/17 09:04 Dextrose IVPB 100 mls/hr DAILY DALE Administration Levothyroxine Sodium 75 mcg 06/06/17 07:00 06/07/17 06:35 Synthroid - PO 75 mcg DAILY@0700 DALE Administration Lisinopril 10 mg 06/06/17 10:00 06/06/17 09:03 Prinivil PO 10 mg DAILY DALE Administration Methylprednisolone Sodium Succinate 60 mg 06/05/17 22:00 06/06/17 22:23 Solu-Medrol - IVPUSH 60 mg BID DALE Administration Metoprolol Succinate 50 mg 06/06/17 10:00 06/06/17 09:03 Toprol Xl - PO 50 mg DAILY DALE Administration Rivaroxaban 20 mg 06/06/17 10:00 06/06/17 09:03 Xarelto - PO 20 mg DAILY DALE Administration ASSESSMENT/PLAN: 77 yo F with a pmhx of A-fib (Xarelto), COPD, HTN, HLD, CVA, presented to the ED because of worsening dyspnea with cough, fever, and wheezing. #Acute COPD exacerbation -Duonebs PRN, standing -Solumedrol 1x 125mg in ED -switch steroids to prednisone 40 mg po daily -O2 -Pulm consult #Sepsis 2/2 to CAP -PO Abx: augmentin 875 bid and Azithromycin 500 daily #A-fib -cont. Xarelto -toprol xl 50 po daily #Hypothyroidism -continue synthroid #HTN -continue Lisinopril/Hctz #HLD -continue statin (lipitor) #FEN/GI -no ivf -replete as needed -sodium controlled diet #DVT Ppx Xarelto Visit type - Emergency Visit Emergency Visit: Yes ED Registration Date: 06/05/17 Care time: The patient presented to the Emergency Department on the above date and was hospitalized for further evaluation of their emergent condition. - New Patient This patient is new to me today: No - Critical Care Critical Care patient: No
[2017-06-07] MEDS: methylPREDNISolone NA SUCC 125 MG/2 ML VIAL IVPUSH SCH (09:31)
[2017-06-07] MEDS: RIVAROXABAN 20 MG TABLET PO SCH (09:32)
[2017-06-07] MEDS: LISINOPRIL 10 MG TABLET (FP) PO SCH (09:32)
[2017-06-07] MEDS: HYDROCHLOROTHIAZIDE 12.5 MG CAPSULE (FP) PO SCH (09:32)
[2017-06-07] MEDS: CEFTRIAXONE 1 GM in DEXTROSE 5%-WATER - 50 ML IVPB SCH (10:45)
--- NOTE | 2017-06-07 11:08 | PN ---
Progress Note, Physician History of Present Illness: PULMONARY ALERT,FEELING BETTER,LESS DYSPNEIC - Current Medication List Current Medications: Active Medications Albuterol Sulfate (Ventolin 0.083% Nebulizer Soln -) 1 amp NEB Q4H PRN PRN Reason: SHORT OF BREATH/WHEEZING Albuterol/Ipratropium (Duoneb -) 1 amp NEB RQID [facility] Last Admin: 06/07/17 08:00 Dose: 1 amp Atorvastatin Calcium (Lipitor -) 40 mg PO HS [facility] Last Admin: 06/06/17 22:23 Dose: 40 mg Hydrochlorothiazide (Hctz -) 12.5 mg PO DAILY [facility] Last Admin: 06/07/17 09:32 Dose: 12.5 mg Azithromycin 500 mg/ Dextrose 250 mls @ 250 mls/hr IVPB DAILY [facility] Last Admin: 06/06/17 11:35 Dose: 250 mls/hr Ceftriaxone Sodium 1 gm/ (Dextrose) 50 mls @ 100 mls/hr IVPB DAILY [facility] Last Admin: 06/06/17 09:04 Dose: 100 mls/hr Levothyroxine Sodium (Synthroid -) 75 mcg PO DAILY@0700 [facility] Last Admin: 06/07/17 06:35 Dose: 75 mcg Lisinopril (Prinivil) 10 mg PO DAILY [facility] Last Admin: 06/07/17 09:32 Dose: 10 mg Methylprednisolone Sodium Succinate (Solu-Medrol -) 60 mg IVPUSH BID [facility] Last Admin: 06/07/17 09:31 Dose: 60 mg Metoprolol Succinate (Toprol Xl -) 50 mg PO DAILY [facility] Last Admin: 06/07/17 09:32 Dose: 50 mg Rivaroxaban (Xarelto -) 20 mg PO DAILY [facility] Last Admin: 06/07/17 09:32 Dose: 20 mg - Objective Vital Signs: Vital Signs Temperature 98.3 F 06/07/17 06:39 Pulse Rate 79 06/07/17 06:39 Respiratory Rate 20 06/07/17 06:39 Blood Pressure 127/84 06/07/17 06:39 O2 Sat by Pulse Oximetry (%) 95 06/06/17 21:00 Constitutional: Yes: Well Nourished, Calm Eyes: Yes: WNL HENT: Yes: WNL Neck: Yes: WNL Cardiovascular: Yes: Pulse Irregular, S1, S2 Respiratory: Yes: Wheezes (SCATTTERED KIMANI WHEEZES) Gastrointestinal: Yes: Normal Bowel Sounds, Soft Extremities: Yes: WNL Edema: Yes Labs: CBC, BMP 06/07/17 05:00 06/07/17 05:00 INR, PTT INR 1.61 (0.82-1.09) H D 06/06/17 06:20 - ....Imaging Cat Scan: Report Reviewed, Image Reviewed Assessment/Plan Problem List - Problems (1) COPD with acute exacerbation Code(s): J44.1 - CHRONIC OBSTRUCTIVE PULMONARY DISEASE W (ACUTE) EXACERBATION (2) Pneumonia Code(s): J18.9 - PNEUMONIA, UNSPECIFIED ORGANISM (3) Sepsis Code(s): A41.9 - SEPSIS, UNSPECIFIED ORGANISM (4) Afib Code(s): I48.91 - UNSPECIFIED ATRIAL FIBRILLATION Qualifiers: Atrial fibrillation type: unspecified Qualified Code(s): I48.91 - Unspecified atrial fibrillation (5) Elevated troponin Code(s): R74.8 - ABNORMAL LEVELS OF OTHER SERUM ENZYMES (6) Hypertension Code(s): I10 - ESSENTIAL (PRIMARY) HYPERTENSION (7) Hyperlipidemia Code(s): E78.5 - HYPERLIPIDEMIA, UNSPECIFIED Assessment/Plan Acute COPD Exacerbation improving Pneumonia Sepsis +Troponins likely [place]and Ischemia Atrial Fibrillation HTN Hyperlipidemia h/o CVA - medrol taper - inhaled bronchodilators standing and PRN - antibiotics - O2 to keep SpO2 >90% - rate control - anticoagulation - outpt PFTs and f/u of chest imaging to ensure resolution DR EUGENE
[2017-06-07] MEDS: AZITHROMYCIN IVPB 500 MG in DEXTROSE 5%-WATER - 250 ML IVPB SCH (11:40)
[2017-06-07] MEDS: AMOX TR/POT CLAV 875MG/125MG TABLETS (FP) PO SCH (16:56)
[2017-06-07] MEDS: ACETAMINOPHEN 325 MG TABLET (FP) PO PRN (17:05)
--- NOTE | 2017-06-07 18:14 | PN ---
Teaching Attending Note Name of Resident: Harshad Gary ATTENDING PHYSICIAN STATEMENT I saw and evaluated the patient. I reviewed the resident's note and discussed the case with the resident. I agree with the resident's findings and plan as documented. SUBJECTIVE: Patient states she continues to have her chronic chest and back pain which has been present for months. She further states her breathing is much better. OBJECTIVE: Last Vital Signs Temp Pulse Resp BP Pulse Ox 98 F 100 H 20 147/86 93 L 06/07/17 14:00 06/07/17 14:00 06/07/17 14:00 06/07/17 14:00 06/07/17 09:00 On exam the patient appears comfortable with no respiratory distress, breathing is calm and appears comfortable. Chest with good air entry, mildly distant breath sounds. No wheezes. Heart regular with monitor showing sinus rhythm. Abd soft and nontender, normal bowel sounds Extremeties no edema or tenderness Laboratory Results - last 24 hr 06/07/17 06/07/17 05:00 05:00 WBC 18.3 H D RBC 4.57 Hgb 14.0 Hct 41.6 MCV 91.1 MCH 30.7 MCHC 33.6 RDW 14.5 Plt Count 251 D MPV 9.8 Neutrophils % 89.5 H D Lymphocytes % 6.6 L D Monocytes % 3.8 Eosinophils % 0.0 D Basophils % 0.1 Sodium 140 Potassium 4.1 Chloride 103 Carbon Dioxide 29 Anion Gap 8 BUN 39 H Creatinine 1.2 H Creat Clearance w eGFR 43.56 Random Glucose 177 H Calcium 9.7 Total Bilirubin 0.7 D AST 22 ALT 23 Alkaline Phosphatase 66 Total Protein 8.3 H Albumin 3.8 ASSESSMENT AND PLAN: 77 y/o woman withAF, COPD, HTN, HLD, CVA with mild chronic gait imbalance Admitted with increasing dyspnea, cough, fever and wheezing CT chest with bilateral patchy infiltrates and nonspecific mediastinal lymph nodes COPD exacerbation improving switch to po prednisone continue duonebs on antibiotics for patchy pneumonia CAP afebrile, clinically improved, increased WBC likely from IV steroids switch to po augmentin and azithromycin AF on xarelto and toprol hypothyroid on synthroid HTN on meds po diet on xarelto for AF and covers her for prophylaxis
[2017-06-07] MEDS: ATORVASTATIN CA 40 MG TABLET (FP) PO SCH (21:12)
[2017-06-08] MEDS: LEVOTHYROXINE NA 75 MCG TABLET (FP) PO SCH (06:00)
[2017-06-08 07:59] LABS: BASO % 0.1 % (0-2.0); MCH 30.8 pg (25.7-33.7); MCHC 34.3 g/dl (32.0-36.0); MEAN CELL VOLUME 89.8 fl (80-96); MEAN PLT VOLUME 9.5 fl (7.5-11.1); MONO % 6.4 % (3.8-10.2); NEUT % 80.5 % (42.8-82.8); PLATELET COUNT 224 K/MM3 (134-434); RBC 4.23 M/mm3 (3.60-5.2); RDW 14.2 % (11.6-15.6); WHITE BLOOD COUNT 15.6 K/mm3 (4.0-10.0)
[2017-06-08] MEDS: ALBUTEROL SO4 2.5/IPRATROPIUM 0.5 INH SOL 3 ML VIAL.NEB. NEB SCH ×4 (08:01→20:48)
[2017-06-08 08:46] LABS: ANION GAP 8 (8-16); BLOOD UREA NITROGEN 32 mg/dL (7-18); CALCIUM 9.5 mg/dL (8.5-10.1); CHLORIDE 105 mmol/L (98-107); CO2 28 mmol/L (21-32); GLUCOSE,RANDOM 116 mg/dL (74-106); SODIUM 141 mmol/L (136-145)
[2017-06-08 08:48] LABS: CREATININE 0.7 mg/dL (0.55-1.02)
[2017-06-08] MEDS: AZITHROMYCIN 250 MG TABLET PO SCH (09:06)
[2017-06-08] MEDS: RIVAROXABAN 20 MG TABLET PO SCH (09:06)
[2017-06-08] MEDS: predniSONE 20 MG TABLET (UD) PO SCH (09:06)
[2017-06-08] MEDS: HYDROCHLOROTHIAZIDE 12.5 MG CAPSULE (FP) PO SCH (09:06)
[2017-06-08] MEDS: LISINOPRIL 10 MG TABLET (FP) PO SCH (09:06)
[2017-06-08] MEDS: AMOX TR/POT CLAV 875MG/125MG TABLETS (FP) PO SCH ×2 (09:06→17:37)
--- NOTE | 2017-06-08 10:24 | PN ---
Physical Exam: SUBJECTIVE: Patient seen and examined Patient feels short of breath on exertion. OBJECTIVE: Vital Signs Temperature 97.5 F L 06/08/17 09:15 Pulse Rate 89 06/08/17 09:15 Respiratory Rate 20 06/08/17 09:15 Blood Pressure 107/52 06/08/17 09:15 O2 Sat by Pulse Oximetry (%) 95 06/07/17 21:00 GENERAL: The patient is awake, alert, and fully oriented, in no acute distress. HEAD: Normal with no signs of trauma. EYES: PERRL, extraocular movements intact, sclera anicteric, conjunctiva clear. ENT: Ears normal, oropharynx clear without exudates, moist mucous membranes.on NC NECK: Trachea midline, full range of motion, supple. LUNGS: decreased Breath sounds bl, scatterd expiratory wheeze , no crackles, no accessory muscle use. HEART: Regular rate and rhythm, S1, S2 without murmur, rub or gallop. ABDOMEN: Soft, large abdomen, nontender, nondistended, normoactive bowel sounds , no guarding, no rebound, no hepatosplenomegaly, no masses. EXTREMITIES: 2+ pulses, warm, well-perfused, no edema. NEUROLOGICAL: Cranial nerves II through XII grossly intact. Normal speech, gait not observed. PSYCH: Normal mood, normal affect. SKIN: Warm, dry, normal turgor, no rashes or lesions noted CBCD WBC 15.6 K/mm3 (4.0-10.0) H 06/08/17 07:27 RBC 4.23 M/mm3 (3.60-5.2) 06/08/17 07:27 Hgb 13.0 GM/dL (10.7-15.3) 06/08/17 07:27 Hct 38.0 % (32.4-45.2) 06/08/17 07:27 MCV 89.8 fl (80-96) 06/08/17 07:27 MCHC 34.3 g/dl (32.0-36.0) 06/08/17 07:27 RDW 14.2 % (11.6-15.6) 06/08/17 07:27 Plt Count 224 K/MM3 (134-434) 06/08/17 07:27 MPV 9.5 fl (7.5-11.1) 06/08/17 07:27 CMP Sodium 141 mmol/L (136-145) 06/08/17 07:27 Potassium 4.0 mmol/L (3.5-5.1) 06/08/17 07:27 Chloride 105 mmol/L (98-107) 06/08/17 07:27 Carbon Dioxide 28 mmol/L (21-32) 06/08/17 07:27 Anion Gap 8 (8-16) 06/08/17 07:27 BUN 32 mg/dL (7-18) H 06/08/17 07:27 Creatinine 0.7 mg/dL (0.55-1.02) 06/08/17 07:27 Creat Clearance w eGFR 43.56 (>60) 06/07/17 05:00 Random Glucose 116 mg/dL (74-106) H 06/08/17 07:27 Calcium 9.5 mg/dL (8.5-10.1) 06/08/17 07:27 Total Bilirubin 0.7 mg/dL (0.2-1.0) D 06/07/17 05:00 AST 22 U/L (15-37) 06/07/17 05:00 ALT 23 U/L (12-78) 06/07/17 05:00 Alkaline Phosphatase 66 U/L (45-117) 06/07/17 05:00 Total Protein 8.3 g/dl (6.4-8.2) H 06/07/17 05:00 Albumin 3.8 g/dl (3.4-5.0) 06/07/17 05:00 CARDIAC ENZYMES Creatine Kinase 276 IU/L (26-192) H 06/05/17 16:30 Troponin I 0.27 ng/ml (0.00-0.05) H 06/05/17 23:50 Active Medications Generic Name Dose Route Start Last Admin Trade Name Freq PRN Reason Stop Dose Admin Acetaminophen 650 mg 06/07/17 13:00 06/07/17 17:05 Tylenol - PO 650 mg Q6H PRN Administration FEVER Albuterol Sulfate 1 amp 06/06/17 00:25 Ventolin 0.083% Nebulizer Soln - NEB Q4H PRN SHORT OF BREATH/WHEEZING Albuterol/Ipratropium 1 amp 06/06/17 08:00 06/08/17 08:01 Duoneb - NEB 1 amp RQID DALE Administration Amoxicillin/Clavulanate Potassium 1 tab 06/07/17 17:30 06/08/17 09:06 Augmentin - 875mg Tablet PO 1 tab BID@0800,1730 DALE Administration Atorvastatin Calcium 40 mg 06/05/17 22:00 06/07/17 21:12 Lipitor - PO 40 mg HS DALE Administration Azithromycin 500 mg 06/08/17 10:00 06/08/17 09:06 Zithromax - PO 500 mg DAILY DALE Administration Hydrochlorothiazide 12.5 mg 06/06/17 10:00 06/08/17 09:06 Hctz - PO 12.5 mg DAILY [facility] Administration Levothyroxine Sodium 75 mcg 06/06/17 07:00 06/08/17 06:00 Synthroid - PO 75 mcg DAILY@0700 DALE Administration Lisinopril 10 mg 06/06/17 10:00 06/08/17 09:06 Prinivil PO 10 mg DAILY D[facility] Administration Metoprolol Succinate 50 mg 06/06/17 10:00 06/08/17 09:06 Toprol Xl - PO 50 mg DAILY D[facility] Administration Prednisone 40 mg 06/08/17 10:00 06/08/17 09:06 Deltasone - PO 40 mg DAILY DALE Administration Rivaroxaban 20 mg 06/06/17 10:00 06/08/17 09:06 Xarelto - PO 20 mg DAILY DALE Administration Home Medications Medication Instructions Recorded Levothyroxine [Synthroid -] 75 mcg PO DAILY 06/11/11 Metoprolol Succinate [Toprol XL -] 50 mg PO DAILY 06/27/12 Cholecalciferol (Vitamin D3) 32,000 unit PO DAILY 09/17/14 [Vitamin D3] Albuterol Sulfate Inhaler - 1 puff IH DAILY 06/05/17 [Ventolin Hfa Inhaler -] Atorvastatin Ca [Lipitor] 40 mg PO HS 06/05/17 Lisinopril/Hydrochlorothiazide 1 each PO DAILY 06/05/17 [Zestoretic 10-12.5 mg Tablet] Rivaroxaban [Xarelto -] 20 mg PO DAILY 06/05/17 Tiotropium [place] [Spiriva] 1 inh IH DAILY 06/05/17 CT chest with bilateral patchy infiltrates and nonspecific mediastinal lymph nodes ASSESSMENT/PLAN: Patient is a 77 y/o woman with Hx of AF, COPD, HTN, HLD, CVA with mild chronic gait imbalance, admitted with increasing dyspnea, cough, fever and wheezing # Acute COPD exacerbation improving on po prednisone, duonebs, on IV antibiotics for patchy pneumonia #CAP ON ANTIBIOTIC AND PO steroids # AF on xarelto and toprol CONTINE # hypothyroid on synthroid # HTN on meds, po diet DVt pX: xarelto Visit type - Emergency Visit Emergency Visit: Yes ED Registration Date: 06/05/17 Care time: The patient presented to the Emergency Department on the above date and was hospitalized for further evaluation of their emergent condition. - New Patient This patient is new to me today: Yes Date on this admission: 06/08/17 - Critical Care Critical Care patient: No - Discharge Referral Referred to [facility] Med P.C.: No
--- NOTE | 2017-06-08 11:11 | PN ---
Progress Note (short form) - Note Progress Note: PULMONARY Breathing improving but still some nonproductive cough and wheezing. Last Vital Signs Temp Pulse Resp BP Pulse Ox 97.5 F L 89 20 107/52 95 06/08/17 09:15 06/08/17 09:15 06/08/17 09:15 06/08/17 09:15 06/07/17 21:00 Gen: NAD at rest Heart: RRR Lung: bilateral rhonchi, wheezes Abd: soft, nontender Ext: no edema CBC, BMP 06/08/17 07:27 06/08/17 07:27 Active Medications Acetaminophen (Tylenol -) 650 mg PO Q6H PRN PRN Reason: FEVER Last Admin: 06/07/17 17:05 Dose: 650 mg Albuterol Sulfate (Ventolin 0.083% Nebulizer Soln -) 1 amp NEB Q4H PRN PRN Reason: SHORT OF BREATH/WHEEZING Albuterol/Ipratropium (Duoneb -) 1 amp NEB RQID [facility] Last Admin: 06/08/17 08:01 Dose: 1 amp Amoxicillin/Clavulanate Potassium (Augmentin - 875mg Tablet) 1 tab PO BID@0800, 1730 [facility] Last Admin: 06/08/17 09:06 Dose: 1 tab Atorvastatin Calcium (Lipitor -) 40 mg PO HS [facility] Last Admin: 06/07/17 21:12 Dose: 40 mg Azithromycin (Zithromax -) 500 mg PO DAILY [facility] Last Admin: 06/08/17 09:06 Dose: 500 mg Hydrochlorothiazide (Hctz -) 12.5 mg PO DAILY [facility] Last Admin: 06/08/17 09:06 Dose: 12.5 mg Levothyroxine Sodium (Synthroid -) 75 mcg PO DAILY@0700 [facility] Last Admin: 06/08/17 06:00 Dose: 75 mcg Lisinopril (Prinivil) 10 mg PO DAILY [facility] Last Admin: 06/08/17 09:06 Dose: 10 mg Metoprolol Succinate (Toprol Xl -) 50 mg PO DAILY [facility] Last Admin: 06/08/17 09:06 Dose: 50 mg Prednisone (Deltasone -) 40 mg PO DAILY [facility] Last Admin: 06/08/17 09:06 Dose: 40 mg Rivaroxaban (Xarelto -) 20 mg PO DAILY [facility] Last Admin: 06/08/17 09:06 Dose: 20 mg A/P Acute COPD Exacerbation Pneumonia Sepsis +Troponins likely Demand Ischemia Atrial Fibrillation HTN Hyperlipidemia h/o CVA - continue prednisone - inhaled bronchodilators standing and PRN - antibiotics - O2 to keep SpO2 >90% - rate control - continue anticoagulation - will need outpt PFTs and f/u of chest imaging to ensure resolution Problem List - Problems (1) COPD with acute exacerbation Code(s): J44.1 - CHRONIC OBSTRUCTIVE PULMONARY DISEASE W (ACUTE) EXACERBATION (2) Pneumonia Code(s): J18.9 - PNEUMONIA, UNSPECIFIED ORGANISM (3) Sepsis Code(s): A41.9 - SEPSIS, UNSPECIFIED ORGANISM (4) Afib Code(s): I48.91 - UNSPECIFIED ATRIAL FIBRILLATION Qualifiers: Atrial fibrillation type: unspecified Qualified Code(s): I48.91 - Unspecified atrial fibrillation (5) Elevated troponin Code(s): R74.8 - ABNORMAL LEVELS OF OTHER SERUM ENZYMES (6) Hypertension Code(s): I10 - ESSENTIAL (PRIMARY) HYPERTENSION (7) Hyperlipidemia Code(s): E78.5 - HYPERLIPIDEMIA, UNSPECIFIED
[2017-06-08] MEDS ORDERED: SODIUM CHLORIDE NASAL SPRAY 44 ML BOTTLE NS PRN (12:10)
[2017-06-08] MEDS: ACETAMINOPHEN 325 MG TABLET (FP) PO PRN (14:15)
[2017-06-08] MEDS: ATORVASTATIN CA 40 MG TABLET (FP) PO SCH (22:11)
[2017-06-09] MEDS: LEVOTHYROXINE NA 75 MCG TABLET (FP) PO SCH (06:37)
[2017-06-09] MEDS: ALBUTEROL SO4 2.5/IPRATROPIUM 0.5 INH SOL 3 ML VIAL.NEB. NEB SCH ×4 (08:36→20:59)
[2017-06-09] MEDS: AMOX TR/POT CLAV 875MG/125MG TABLETS (FP) PO SCH (08:53)
--- NOTE | 2017-06-09 08:55 | PN ---
Physical Exam: SUBJECTIVE: Patient seen and examined No events overnight. Patient feels SOB on exertion and has minimal coughing. Feels better overall OBJECTIVE: Vital Signs Period Temp Pulse Resp BP Sys/Hendrix Pulse Ox Last 24 Hr 97.5 F-98.3 F 75-92 18-20 107-148/52-91 95-96 GENERAL: A/o x3, HEAD: Normal with no signs of trauma. EYES: Extraocular movements intact, sclera anicteric, conjunctiva clear. No lid lag. EARS, NOSE, THROAT: oropharynx clear without exudates. Moist mucous membranes. NECK: supple without lymphadenopathy, JVD, or masses. LUNGS: right upper lung wheezing and mid lung rhonchi HEART: irregularly irregular ABDOMEN: Soft, nontender, not distended, normoactive bowel sounds, no guarding, no rebound, no masses. LOWER EXTREMITIES: 2+ pulses, warm, well-perfused. No calf tenderness. No peripheral edema. PSYCHIATRIC: Cooperative. Good eye contact. Appropriate mood and affect. Active Medications Generic Name Dose Route Start Last Admin Trade Name Freq PRN Reason Stop Dose Admin Acetaminophen 650 mg 06/07/17 13:00 06/08/17 14:15 Tylenol - PO 650 mg Q6H PRN Administration FEVER Albuterol Sulfate 1 amp 06/06/17 00:25 Ventolin 0.083% Nebulizer Soln - NEB Q4H PRN SHORT OF BREATH/WHEEZING Albuterol/Ipratropium 1 amp 06/06/17 08:00 06/09/17 08:36 Duoneb - NEB 1 amp RQID DALE Administration Amoxicillin/Clavulanate Potassium 1 tab 06/07/17 17:30 06/09/17 08:53 Augmentin - 875mg Tablet PO 1 tab BID@0800,1730 DALE Administration Atorvastatin Calcium 40 mg 06/05/17 22:00 06/08/17 22:11 Lipitor - PO 40 mg HS DALE Administration Azithromycin 500 mg 06/08/17 10:00 06/08/17 09:06 Zithromax - PO 500 mg DAILY [facility] Administration Hydrochlorothiazide 12.5 mg 06/06/17 10:00 06/08/17 09:06 Hctz - PO 12.5 mg DAILY [facility] Administration Levothyroxine Sodium 75 mcg 06/06/17 07:00 04/29/18 06:37 Synthroid - PO 75 mcg DAILY@0700 [facility] Administration Lisinopril 10 mg 06/06/17 10:00 06/08/17 09:06 Prinivil PO 10 mg DAILY [facility] Administration Metoprolol Succinate 50 mg 06/06/17 10:00 06/08/17 09:06 Toprol Xl - PO 50 mg DAILY [facility] Administration Prednisone 40 mg 06/08/17 10:00 06/08/17 09:06 Deltasone - PO 40 mg DAILY [facility] Administration Rivaroxaban 20 mg 06/06/17 10:00 06/08/17 09:06 Xarelto - PO 20 mg DAILY [facility] Administration Sodium Chloride 2 spray 06/08/17 12:10 [place] Nasal [place] - NS TID PRN NASAL CONGESTION ASSESSMENT/PLAN: 77 yo F with a pmhx of A-fib (Xarelto), COPD, HTN, HLD, CVA, presented to the ED because of worsening dyspnea with cough, fever, and wheezing. #Acute COPD exacerbation -Duonebs PRN, standing -Solumedrol 1x 125mg in ED -Continue prednisone 40 mg po daily -O2x -Pulm consult #Sepsis 2/2 to CAP -Continue augmentin 875 bid and Azithromycin 500 daily #A-fib -cont. Xarelto -toprol xl 50 po daily #Hypothyroidism -continue synthroid #HTN -continue Lisinopril/Hctz #HLD -continue statin (lipitor) #FEN/GI -no ivf -replete as needed -sodium controlled diet #DVT Ppx Xarelto Dispo: pre-post Visit type - Emergency Visit Emergency Visit: Yes ED Registration Date: 06/05/17 Care time: The patient presented to the Emergency Department on the above date and was hospitalized for further evaluation of their emergent condition. - New Patient This patient is new to me today: No - Critical Care Critical Care patient: No
[2017-06-09] MEDS: predniSONE 20 MG TABLET (UD) PO SCH (09:25)
[2017-06-09] MEDS: AZITHROMYCIN 250 MG TABLET PO SCH (09:25)
[2017-06-09] MEDS: HYDROCHLOROTHIAZIDE 12.5 MG CAPSULE (FP) PO SCH (09:25)
[2017-06-09] MEDS: LISINOPRIL 10 MG TABLET (FP) PO SCH (09:25)
[2017-06-09] MEDS: RIVAROXABAN 20 MG TABLET PO SCH (09:25)
--- NOTE | 2017-06-09 11:39 | PN ---
Progress Note (short form) - Note Progress Note: PULMONARY Breathing slowly improving but still with nonproductive cough and wheezing. Last Vital Signs Temp Pulse Resp BP Pulse Ox 98.2 F 75 20 142/80 96 06/09/17 08:17 06/09/17 08:17 06/09/17 08:19 06/09/17 08:17 06/09/17 08:19 Gen: NAD at rest Heart: RRR Lung: bilateral rhonchi, wheezes Abd: soft, nontender Ext: no edema CBC, BMP 06/08/17 07:27 06/08/17 07:27 Active Medications Acetaminophen (Tylenol -) 650 mg PO Q6H PRN PRN Reason: FEVER Last Admin: 06/08/17 14:15 Dose: 650 mg Albuterol Sulfate (Ventolin 0.083% Nebulizer Soln -) 1 amp NEB Q4H PRN PRN Reason: SHORT OF BREATH/WHEEZING Albuterol/Ipratropium (Duoneb -) 1 amp NEB RQID [facility] Last Admin: 06/09/17 08:36 Dose: 1 amp Amoxicillin/Clavulanate Potassium (Augmentin - 875mg Tablet) 1 tab PO BID@0800, 1730 [facility] Last Admin: 06/09/17 08:53 Dose: 1 tab Atorvastatin Calcium (Lipitor -) 40 mg PO HS [facility] Last Admin: 06/08/17 22:11 Dose: 40 mg Azithromycin (Zithromax -) 500 mg PO DAILY [facility] Last Admin: 06/09/17 09:25 Dose: 500 mg Hydrochlorothiazide (Hctz -) 12.5 mg PO DAILY [facility] Last Admin: 06/09/17 09:25 Dose: 12.5 mg Levothyroxine Sodium (Synthroid -) 75 mcg PO DAILY@0700 [facility] Last Admin: 06/09/17 06:37 Dose: 75 mcg Lisinopril (Prinivil) 10 mg PO DAILY [facility] Last Admin: 06/09/17 09:25 Dose: 10 mg Metoprolol Succinate (Toprol Xl -) 50 mg PO DAILY [facility] Last Admin: 06/09/17 09:26 Dose: 50 mg Prednisone (Deltasone -) 40 mg PO DAILY [facility] Last Admin: 06/09/17 09:25 Dose: 40 mg Rivaroxaban (Xarelto -) 20 mg PO DAILY [facility] Last Admin: 06/09/17 09:25 Dose: 20 mg Sodium Chloride ([place] -) 2 spray NS TID PRN PRN Reason: NASAL CONGESTION A/P Acute COPD Exacerbation Pneumonia Sepsis +Troponins likely [place]and Ischemia Atrial Fibrillation HTN Hyperlipidemia h/o CVA - continue prednisone same dose - inhaled bronchodilators standing and PRN - antibiotics - O2 to keep SpO2 >90% - rate control - continue anticoagulation - will need outpt PFTs and f/u of chest imaging to ensure resolution Problem List - Problems (1) COPD with acute exacerbation Code(s): J44.1 - CHRONIC OBSTRUCTIVE PULMONARY DISEASE W (ACUTE) EXACERBATION (2) Pneumonia Code(s): J18.9 - PNEUMONIA, UNSPECIFIED ORGANISM (3) Sepsis Code(s): A41.9 - SEPSIS, UNSPECIFIED ORGANISM (4) Afib Code(s): I48.91 - UNSPECIFIED ATRIAL FIBRILLATION Qualifiers: Atrial fibrillation type: unspecified Qualified Code(s): I48.91 - Unspecified atrial fibrillation (5) Elevated troponin Code(s): R74.8 - ABNORMAL LEVELS OF OTHER SERUM ENZYMES (6) Hypertension Code(s): I10 - ESSENTIAL (PRIMARY) HYPERTENSION (7) Hyperlipidemia Code(s): E78.5 - HYPERLIPIDEMIA, UNSPECIFIED
--- NOTE | 2017-06-09 14:52 | CON.CARD ---
Consult Consult Specialty:: Cardiology Referred by:: Hospitalist Medicine Reason for Consultation:: Afib - History of Present Illness Chief Complaint: Dyspnea History of Present Illness: shortness of breath - History of Present Illness Chief Complaint: shortness of breath History of Present Illness: 77yo female with h/o HTN, hyperlipidemia, COPD, atrial fibrillation on NOAC, h/ o CVA who was admitted with worsening shortness of breath, wheezes, cough without chest pain or palpitations. Reports subjective fevers, chills. No sick contacts or recent travel. She is a remote smoker, smoked about 1 PPD x 20 years , quit 25 years ago. She denies orthopnea, PND or LE edema, near or true syncope , symptoms improving on therapy. 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 [employer]TE [employer]: Yes: CVA Cardio/Vascular: Yes: AFIB, HTN, Hyperlipdemia Pulmonary: Yes: COPD ...: No - Alcohol/Substance Use Hx Alcohol Use: No - Smoking History Smoking history: Former smoker Have you smoked in the past 12 months: No If you are a former smoker, when did you quit?: 1989 Home Medications - Allergies Allergies/Adverse Reactions: Allergies Allergy/AdvReac Type Severity Reaction Status Date / Time shellfish derived Allergy Verified 06/05/17 15:53 - Home Medications Home Medications: Ambulatory Orders Levothyroxine [Synthroid -] 75 mcg PO DAILY 06/11/11 Metoprolol Succinate [Toprol XL -] 50 mg PO DAILY 06/27/12 Cholecalciferol (Vitamin D3) [Vitamin D3] 32,000 unit PO DAILY 09/17/14 Albuterol Sulfate Inhaler - [Ventolin Hfa Inhaler -] 1 puff IH DAILY 06/05/17 Atorvastatin Ca [Lipitor] 40 mg PO HS 06/05/17 Lisinopril/Hydrochlorothiazide [Zestoretic 10-12.5 mg Tablet] 1 each PO DAILY Rivaroxaban [Xarelto -] 20 mg PO DAILY 06/05/17 Tiotropium [place] [Spiriva] 1 inh IH DAILY 06/05/17 Review of Systems - Review of Systems Cardiovascular: reports: Shortness of Breath Respiratory: reports: Cough, Wheezing Vital Signs: Vital Signs Temperature 97.6 F 06/09/17 14:29 Pulse Rate 78 06/09/17 14:29 Respiratory Rate 18 06/09/17 14:29 Blood Pressure 131/67 06/09/17 14:29 O2 Sat by Pulse Oximetry (%) 96 06/09/17 08:19 Constitutional: Yes: No Distress, Calm Neck: Yes: Supple Respiratory: Yes: Regular, Diminished, On Nasal O2 Gastrointestinal: Yes: Normal Bowel Sounds, Soft, Abdomen, Obese Cardiovascular: Yes: Pulse Irregular JVD: No Carotid Bruit: No Heart Sounds: Yes: S1, S2 Edema: Yes Edema: LLE: Trace, RLE: Trace - Other Data Labs, Other Data: CBC, BMP 06/08/17 07:27 06/08/17 07:27 INR, PTT INR 1.61 (0.82-1.09) H D 06/06/17 06:20 Afib Imaging - Results Chest X-ray: Report Reviewed Cat Scan: Report Reviewed Problem List - Problems (1) Demand ischemia Code(s): I24.8 - OTHER FORMS OF ACUTE ISCHEMIC HEART DISEASE (2) Afib Code(s): I48.91 - UNSPECIFIED ATRIAL FIBRILLATION Qualifiers: Atrial fibrillation type: persistent Qualified Code(s): I48.1 - Persistent atrial fibrillation (3) COPD with acute exacerbation Code(s): J44.1 - CHRONIC OBSTRUCTIVE PULMONARY DISEASE W (ACUTE) EXACERBATION (4) Hyperlipidemia Code(s): E78.5 - HYPERLIPIDEMIA, UNSPECIFIED Qualifiers: Hyperlipidemia type: pure hypercholesterolemia Qualified Code(s): E78.00 - Pure hypercholesterolemia, unspecified; E78.0 - Pure hypercholesterolemia (5) Hypertension Code(s): I10 - ESSENTIAL (PRIMARY) HYPERTENSION Qualifiers: Hypertension type: essential hypertension Qualified Code(s): I10 - Essential (primary) hypertension (6) Pneumonia Code(s): J18.9 - PNEUMONIA, UNSPECIFIED ORGANISM Qualifiers: Pneumonia type: due to unspecified organism Laterality: bilateral Assessment/Plan Normal biventricular size and fxn, Tr TR CT chest with bilateral patchy infiltrates and nonspecific mediastinal lymph nodes 1. Acute COPD Exacerbation improving 2. Pneumonia 3. +Troponins likely Demand Ischemia 4. Persistent Atrial Fibrillation on NOAC 5. HTN 6. Hyperlipidemia 7. h/o CVA 8. Hypothyroidism P:1. Oral steroid taper, BD, empiric abx, O2 to keep SpO2 >90%, will need outpt PFTs and f/u of chest imaging to ensure resolution 2. Continue Toprol XL 50 qd, Zesteretic 10/12.5 qd, Lipitor 40 qhs, Xarelto 20 qd 3. Thank you for consultative opportunity
[2017-06-09] MEDS ORDERED: cefTRIAXone SODIUM 1 GM VIAL ONE (14:55)
[2017-06-09] MEDS ORDERED: DEXTROSE 5%-WATER - 50 ML IVPB ONE (14:56)
[2017-06-09] MEDS: methylPREDNISolone NA SUCC 40 MG/1 ML VIAL IVPUSH SCH ×2 (14:56→17:20)
[2017-06-09] MEDS: CEFTRIAXONE 1 GM in DEXTROSE 5%-WATER - 50 ML IVPB SCH (14:57)
--- NOTE | 2017-06-09 17:12 | PN ---
Progress Note (short form) - Note Progress Note: Patient is feeling short of breath, c/o of unable to sleep at night due to her neighbor next bed family talking on the phone Vital Signs Temperature 97.6 F 06/09/17 14:29 Pulse Rate 78 06/09/17 14:29 Respiratory Rate 18 06/09/17 14:29 Blood Pressure 131/67 06/09/17 14:29 O2 Sat by Pulse Oximetry (%) 96 06/09/17 08:19 GENERAL: The patient is awake, alert, and fully oriented, in no acute distress. HEAD: Normal with no signs of trauma. EYES: PERRL, extraocular movements intact, sclera anicteric, conjunctiva clear. ENT: Ears normal, oropharynx clear without exudates, moist mucous membranes.on NC NECK: Trachea midline, full range of motion, supple. LUNGS: decreased Breath sounds bl, BL wheezing bl , no crackles, no accessory muscle use. HEART: Regular rate and rhythm, S1, S2 without murmur, rub or gallop. ABDOMEN: Soft, large abdomen, nontender, nondistended, normoactive bowel sounds , no guarding, no rebound, no hepatosplenomegaly, no masses. EXTREMITIES: 2+ pulses, warm, well-perfused, no edema. NEUROLOGICAL: Cranial nerves II through XII grossly intact. Normal speech, gait not observed. PSYCH: Normal mood, normal affect. SKIN: Warm, dry, normal turgor, no rashes or lesions noted CBCD WBC 15.6 K/mm3 (4.0-10.0) H 06/08/17 07:27 RBC 4.23 M/mm3 (3.60-5.2) 06/08/17 07:27 Hgb 13.0 GM/dL (10.7-15.3) 06/08/17 07:27 Hct 38.0 % (32.4-45.2) 06/08/17 07:27 MCV 89.8 fl (80-96) 06/08/17 07:27 MCHC 34.3 g/dl (32.0-36.0) 06/08/17 07:27 RDW 14.2 % (11.6-15.6) 06/08/17 07:27 Plt Count 224 K/MM3 (134-434) 06/08/17 07:27 MPV 9.5 fl (7.5-11.1) 06/08/17 07:27 CMP Sodium 141 mmol/L (136-145) 06/08/17 07:27 Potassium 4.0 mmol/L (3.5-5.1) 06/08/17 07:27 Chloride 105 mmol/L (98-107) 06/08/17 07:27 Carbon Dioxide 28 mmol/L (21-32) 06/08/17 07:27 Anion Gap 8 (8-16) 06/08/17 07:27 BUN 32 mg/dL (7-18) H 06/08/17 07:27 Creatinine 0.7 mg/dL (0.55-1.02) 06/08/17 07:27 Creat Clearance w eGFR 43.56 (>60) 06/07/17 05:00 Random Glucose 116 mg/dL (74-106) H 06/08/17 07:27 Calcium 9.5 mg/dL (8.5-10.1) 06/08/17 07:27 Total Bilirubin 0.7 mg/dL (0.2-1.0) D 06/07/17 05:00 AST 22 U/L (15-37) 06/07/17 05:00 ALT 23 U/L (12-78) 06/07/17 05:00 Alkaline Phosphatase 66 U/L (45-117) 06/07/17 05:00 Total Protein 8.3 g/dl (6.4-8.2) H 06/07/17 05:00 Albumin 3.8 g/dl (3.4-5.0) 06/07/17 05:00 CARDIAC ENZYMES Creatine Kinase 276 IU/L (26-192) H 06/05/17 16:30 Troponin I 0.27 ng/ml (0.00-0.05) H 06/05/17 23:50 Current Medications Generic Name Dose Route Start Last Admin Trade Name Freq PRN Reason Stop Dose Admin Acetaminophen 650 mg 06/07/17 13:00 06/08/17 14:15 Tylenol - PO 650 mg Q6H PRN Administration FEVER Albuterol Sulfate 1 amp 06/06/17 00:25 Ventolin 0.083% Nebulizer Soln - NEB Q4H PRN SHORT OF BREATH/WHEEZING Albuterol/Ipratropium 1 amp 06/06/17 08:00 06/09/17 17:08 Duoneb - NEB 1 amp RQID [facility] Administration Atorvastatin Calcium 40 mg 06/05/17 22:00 06/08/17 22:11 Lipitor - PO 40 mg HS [facility] Administration Hydrochlorothiazide 12.5 mg 06/06/17 10:00 06/09/17 09:25 Hctz - PO 12.5 mg DAILY [facility] Administration Ceftriaxone Sodium 1 gm/ 50 mls @ 100 mls/hr 06/09/17 15:00 06/09/17 14:57 Dextrose IVPB 100 mls/hr DAILY [facility] Administration Protocol Azithromycin 500 mg/ Dextrose 250 mls @ 250 mls/hr 06/10/17 10:00 IVPB DAILY [facility] Levothyroxine Sodium 75 mcg 06/06/17 07:00 06/09/17 06:37 Synthroid - PO 75 mcg DAILY@0700 [facility] Administration Lisinopril 10 mg 06/06/17 10:00 06/09/17 09:25 Prinivil PO 10 mg DAILY [facility] Administration Methylprednisolone Sodium Succinate 40 mg 06/09/17 14:15 06/09/17 14:56 Solu-Medrol - IVPUSH 40 mg Q8H-IV [facility] Administration Metoprolol Succinate 50 mg 06/06/17 10:00 06/09/17 09:26 Toprol Xl - PO 50 mg DAILY [facility] Administration Rivaroxaban 20 mg 06/06/17 10:00 06/09/17 09:25 Xarelto - PO 20 mg DAILY [facility] Administration Sodium Chloride 2 spray 06/08/17 12:10 [place] Nasal [place] - NS TID PRN NASAL CONGESTION Home Medications Medication Instructions Recorded Levothyroxine [Synthroid -] 75 mcg PO DAILY 06/11/11 Metoprolol Succinate [Toprol XL -] 50 mg PO DAILY 06/27/12 Cholecalciferol (Vitamin D3) 32,000 unit PO DAILY 09/17/14 [Vitamin D3] Albuterol Sulfate Inhaler - 1 puff IH DAILY 06/05/17 [Ventolin Hfa Inhaler -] Atorvastatin Ca [Lipitor] 40 mg PO HS 06/05/17 Lisinopril/Hydrochlorothiazide 1 each PO DAILY 06/05/17 [Zestoretic 10-12.5 mg Tablet] Rivaroxaban [Xarelto -] 20 mg PO DAILY 06/05/17 Tiotropium [place] [Spiriva] 1 inh IH DAILY 06/05/17 CT chest with bilateral patchy infiltrates and nonspecific mediastinal lymph nodes ASSESSMENT/PLAN: Patient is a 77 y/o woman with Hx of AF, COPD, HTN, HLD, CVA with mild chronic gait imbalance, admitted with increasing dyspnea, cough, fever and wheezing # Acute COPD exacerbation worse today , will change to IV steroid 40mg iv q8h, IV rocephin switched to from PO, IV zithromax 500mg x 3 days, duonebs. #CAP ON ANTIBIOTIC Rocephin and Zithro IV AND IV steroid # AF on xarelto and toprol Xl continue # hypothyroid on synthroid # HTN on meds, po diet DVt pX: xarelto Visit type - Emergency Visit Emergency Visit: Yes ED Registration Date: 06/05/17 Care time: The patient presented to the Emergency Department on the above date and was hospitalized for further evaluation of their emergent condition. - New Patient This patient is new to me today: No - Critical Care Critical Care patient: Yes Total Critical Care Time (in minutes): 35 Critical Care Statement: The care of this patient involved high complexity decision making to prevent further life threatening deterioration of the patient 's condition and/or to evaluate & treat vital organ system(s) failure or risk of failure. - Discharge Referral Referred to [facility] Med [facility].C.: No
[2017-06-09] MEDS: ATORVASTATIN CA 40 MG TABLET (FP) PO SCH (21:09)
[2017-06-10] MEDS: methylPREDNISolone NA SUCC 40 MG/1 ML VIAL IVPUSH SCH ×3 (03:06→22:06)
[2017-06-10] MEDS: ACETAMINOPHEN 325 MG TABLET (FP) PO PRN (04:05)
[2017-06-10] MEDS: LEVOTHYROXINE NA 75 MCG TABLET (FP) PO SCH (06:14)
[2017-06-10 06:29] LABS: HEMATOCRIT 40.6 % (32.4-45.2); LYMPH % 8.6 % (8-40); MCH 31.1 pg (25.7-33.7); MCHC 34.4 g/dl (32.0-36.0); MEAN CELL VOLUME 90.4 fl (80-96); MEAN PLT VOLUME 9.1 fl (7.5-11.1); MONO % 2.6 % (3.8-10.2); NEUT % 88.8 % (42.8-82.8); PLATELET COUNT 246 K/MM3 (134-434); RBC 4.49 M/mm3 (3.60-5.2); WHITE BLOOD COUNT 11.3 K/mm3 (4.0-10.0)
[2017-06-10 07:08] LABS: ANION GAP 9 (8-16); BLOOD UREA NITROGEN 27 mg/dL (7-18); CALCIUM 9.5 mg/dL (8.5-10.1); CHLORIDE 102 mmol/L (98-107); CO2 30 mmol/L (21-32); CREATININE 0.8 mg/dL (0.55-1.02); GLUCOSE,RANDOM 179 mg/dL (74-106); POTASSIUM 4.4 mmol/L (3.5-5.1); SODIUM 141 mmol/L (136-145)
[2017-06-10] MEDS: ALBUTEROL SO4 2.5/IPRATROPIUM 0.5 INH SOL 3 ML VIAL.NEB. NEB SCH ×4 (07:40→20:45)
[2017-06-10] MEDS ORDERED: DEXTROSE 5%-WATER - 50 ML IVPB ONE (09:16)
[2017-06-10] MEDS ORDERED: cefTRIAXone SODIUM 1 GM VIAL ONE (09:16)
[2017-06-10] MEDS: CEFTRIAXONE 1 GM in DEXTROSE 5%-WATER - 50 ML IVPB SCH (09:20)
[2017-06-10] MEDS: AZITHROMYCIN IVPB 500 MG in DEXTROSE 5%-WATER - 250 ML IVPB SCH (09:21)
[2017-06-10] MEDS: RIVAROXABAN 20 MG TABLET PO SCH (09:21)
[2017-06-10] MEDS: LISINOPRIL 10 MG TABLET (FP) PO SCH (09:21)
[2017-06-10] MEDS: HYDROCHLOROTHIAZIDE 12.5 MG CAPSULE (FP) PO SCH (09:21)
--- NOTE | 2017-06-10 11:02 | PN ---
Progress Note, Physician History of Present Illness: PULMONARY ALERT,FEELING BETTER,DYSPNEA IMPROVED,+ OCC COUGH,TRACE HEMOPTYSIS - Current Medication List Current Medications: Active Medications Acetaminophen (Tylenol -) 650 mg PO Q6H PRN PRN Reason: FEVER Last Admin: 06/10/17 04:05 Dose: 650 mg Albuterol Sulfate (Ventolin 0.083% Nebulizer Soln -) 1 amp NEB Q4H PRN PRN Reason: SHORT OF BREATH/WHEEZING Albuterol/Ipratropium (Duoneb -) 1 amp NEB RQID [facility] Last Admin: 06/10/17 07:40 Dose: Not Given Atorvastatin Calcium (Lipitor -) 40 mg PO HS [facility] Last Admin: 06/09/17 21:09 Dose: 40 mg Hydrochlorothiazide (Hctz -) 12.5 mg PO DAILY [facility] Last Admin: 06/10/17 09:21 Dose: 12.5 mg Ceftriaxone Sodium 1 gm/ (Dextrose) 50 mls @ 100 mls/hr IVPB DAILY [facility] PRN Reason: Protocol Last Admin: 06/10/17 09:20 Dose: 100 mls/hr Azithromycin 500 mg/ Dextrose 250 mls @ 250 mls/hr IVPB DAILY [facility] Last Admin: 06/10/17 09:21 Dose: 250 mls/hr Levothyroxine Sodium (Synthroid -) 75 mcg PO DAILY@0700 [facility] Last Admin: 06/10/17 06:14 Dose: 75 mcg Lisinopril (Prinivil) 10 mg PO DAILY [facility] Last Admin: 06/10/17 09:21 Dose: 10 mg Methylprednisolone Sodium Succinate (Solu-Medrol -) 40 mg IVPUSH Q8H-IV [facility] Last Admin: 06/10/17 09:20 Dose: 40 mg Metoprolol Succinate (Toprol Xl -) 50 mg PO DAILY [facility] Last Admin: 06/10/17 09:21 Dose: 50 mg Rivaroxaban (Xarelto -) 20 mg PO DAILY [facility] Last Admin: 06/10/17 09:21 Dose: 20 mg Sodium Chloride ([place] Nasal [place] -) 2 spray NS TID PRN PRN Reason: NASAL CONGESTION - Objective Vital Signs: Vital Signs Temperature 98.1 F 06/10/17 07:28 Pulse Rate 81 06/10/17 07:28 Respiratory Rate 20 06/10/17 07:31 Blood Pressure 144/89 06/10/17 07:28 O2 Sat by Pulse Oximetry (%) 94 L 06/10/17 07:31 Constitutional: Yes: Well Nourished, Calm Eyes: Yes: WNL HENT: Yes: WNL Neck: Yes: WNL Cardiovascular: Yes: Pulse Irregular, S1, S2 Respiratory: Yes: Diminished Gastrointestinal: Yes: Normal Bowel Sounds, Soft Extremities: Yes: WNL Edema: Yes Edema: LLE: Trace, RLE: Trace Labs: CBC, BMP 06/10/17 06:10 06/10/17 06:10 INR, PTT INR 1.61 (0.82-1.09) H D 06/06/17 06:20 Assessment/Plan Problem List - Problems (1) COPD with acute exacerbation Code(s): J44.1 - CHRONIC OBSTRUCTIVE PULMONARY DISEASE W (ACUTE) EXACERBATION (2) Pneumonia Code(s): J18.9 - PNEUMONIA, UNSPECIFIED ORGANISM (3) Sepsis Code(s): A41.9 - SEPSIS, UNSPECIFIED ORGANISM (4) Afib Code(s): I48.91 - UNSPECIFIED ATRIAL FIBRILLATION Qualifiers: Atrial fibrillation type: unspecified Qualified Code(s): I48.91 - Unspecified atrial fibrillation (5) Elevated troponin Code(s): R74.8 - ABNORMAL LEVELS OF OTHER SERUM ENZYMES (6) Hypertension Code(s): I10 - ESSENTIAL (PRIMARY) HYPERTENSION (7) Hyperlipidemia Code(s): E78.5 - HYPERLIPIDEMIA, UNSPECIFIED Assessment/Plan Acute COPD Exacerbation improving Pneumonia Sepsis +Troponins likely Demand Ischemia Atrial Fibrillation HTN Hyperlipidemia h/o CVA Hemoptysis - medrol taper - inhaled bronchodilators standing and PRN - antibiotics - O2 to keep SpO2 >90% - rate control - anticoagulation - outpt PFTs and f/u of chest imaging to ensure resolution DR EUGENE
--- NOTE | 2017-06-10 11:43 | PN ---
Progress Note, Physician Chief Complaint: Events noted Less SOB History of Present Illness: Patient was seen and examined. Awake and alert. Chart was reviewed Denies chest pain, less SOB and cough. Denies palpitations AF with variable ventricular response - Current Medication List Current Medications: Active Medications Acetaminophen (Tylenol -) 650 mg PO Q6H PRN PRN Reason: FEVER Last Admin: 06/10/17 04:05 Dose: 650 mg Albuterol Sulfate (Ventolin 0.083% Nebulizer Soln -) 1 amp NEB Q4H PRN PRN Reason: SHORT OF BREATH/WHEEZING Albuterol/Ipratropium (Duoneb -) 1 amp NEB RQID [facility] Last Admin: 06/10/17 07:40 Dose: Not Given Atorvastatin Calcium (Lipitor -) 40 mg PO HS [facility] Last Admin: 06/09/17 21:09 Dose: 40 mg Hydrochlorothiazide (Hctz -) 12.5 mg PO DAILY [facility] Last Admin: 06/10/17 09:21 Dose: 12.5 mg Ceftriaxone Sodium 1 gm/ (Dextrose) 50 mls @ 100 mls/hr IVPB DAILY [facility] PRN Reason: Protocol Last Admin: 06/10/17 09:20 Dose: 100 mls/hr Azithromycin 500 mg/ Dextrose 250 mls @ 250 mls/hr IVPB DAILY [facility] Last Admin: 06/10/17 09:21 Dose: 250 mls/hr Levothyroxine Sodium (Synthroid -) 75 mcg PO DAILY@0700 [facility] Last Admin: 06/10/17 06:14 Dose: 75 mcg Lisinopril (Prinivil) 10 mg PO DAILY [facility] Last Admin: 06/10/17 09:21 Dose: 10 mg Methylprednisolone Sodium Succinate (Solu-Medrol -) 40 mg IVPUSH BID [facility] Metoprolol Succinate (Toprol Xl -) 50 mg PO DAILY [facility] Last Admin: 06/10/17 09:21 Dose: 50 mg Rivaroxaban (Xarelto -) 20 mg PO DAILY [facility] Last Admin: 06/10/17 09:21 Dose: 20 mg Sodium Chloride ([place] Nasal [place] -) 2 spray NS TID PRN PRN Reason: NASAL CONGESTION - Objective Vital Signs: Vital Signs Temperature 98.1 F 06/10/17 07:28 Pulse Rate 81 06/10/17 07:28 Respiratory Rate 20 06/10/17 07:31 Blood Pressure 144/89 06/10/17 07:28 O2 Sat by Pulse Oximetry (%) 94 L 06/10/17 07:31 Constitutional: Yes: Well Nourished Eyes: Yes: PERRL HENT: Yes: Atraumatic Neck: Yes: Supple Cardiovascular: Yes: Pulse Irregular, S1, S2 Respiratory: Yes: Diminished Gastrointestinal: Yes: Normal Bowel Sounds, Soft. No: Tenderness Edema: Yes Edema: LLE: Trace, RLE: Trace Labs: CBC, BMP 06/10/17 06:10 06/10/17 06:10 INR, PTT INR 1.61 (0.82-1.09) H D 06/06/17 06:20 Problem List - Problems (1) Afib Code(s): I48.91 - UNSPECIFIED ATRIAL FIBRILLATION Qualifiers: Atrial fibrillation type: persistent Qualified Code(s): I48.1 - Persistent atrial fibrillation (2) COPD with acute exacerbation Code(s): J44.1 - CHRONIC OBSTRUCTIVE PULMONARY DISEASE W (ACUTE) EXACERBATION (3) Demand ischemia Code(s): I24.8 - OTHER FORMS OF ACUTE ISCHEMIC HEART DISEASE (4) Hyperlipidemia Code(s): E78.5 - HYPERLIPIDEMIA, UNSPECIFIED Qualifiers: Hyperlipidemia type: pure hypercholesterolemia Qualified Code(s): E78.00 - Pure hypercholesterolemia, unspecified; E78.0 - Pure hypercholesterolemia (5) Hypertension Code(s): I10 - ESSENTIAL (PRIMARY) HYPERTENSION Qualifiers: Hypertension type: essential hypertension Qualified Code(s): I10 - Essential (primary) hypertension (6) Pneumonia Code(s): J18.9 - PNEUMONIA, UNSPECIFIED ORGANISM Qualifiers: Pneumonia type: due to unspecified organism Laterality: bilateral (7) Sepsis Code(s): A41.9 - SEPSIS, UNSPECIFIED ORGANISM Qualifiers: Sepsis type: sepsis due to unspecified organism Qualified Code(s): A41.9 - Sepsis, unspecified organism Assessment/Plan 1. Acute COPD Exacerbation - improving 2. Pneumonia 3. Positive troponin suggests demand ischemia 4. Persistent atrial fibrillation on NOAC 5. HTN 6. Hyperlipidemia 7. History of CVA 8. Hypothyroidism PLAN: 1. Oral steroids, bronchodilator, empiric antibiotic and O2. 2. Consider outpt PFTs 3. Continue Toprol XL 50 qd, Zesteretic 10/12.5 qd, Lipitor 40 qhs and Xarelto 20 qd 4. Ambulate and physical therapy Further plans are to follow Osman Borja MD
--- NOTE | 2017-06-10 13:48 | PN ---
<Junior Ortiz - Last Filed: 06/10/17 14:00> Physical Exam: SUBJECTIVE: Patient seen and examined No events overnight. Patient feels better today but continues to have mild dyspnea on exertion. OBJECTIVE: Vital Signs Period Temp Pulse Resp BP Sys/Hendrix Pulse Ox Last 24 Hr 97.6 F-98.2 F 74-125 18-20 131-160/67-92 89-94 GENERAL: A/o x3, HEAD: Normal with no signs of trauma. EYES: Extraocular movements intact, sclera anicteric, conjunctiva clear. No lid lag. EARS, NOSE, THROAT: oropharynx clear without exudates. Moist mucous membranes. NECK: supple without lymphadenopathy, JVD, or masses. LUNGS: b/l wheezing HEART: irregularly irregular ABDOMEN: Soft, nontender, not distended, normoactive bowel sounds, no guarding, no rebound, no masses. LOWER EXTREMITIES: 2+ pulses, warm, well-perfused. No calf tenderness. No peripheral edema. PSYCHIATRIC: Cooperative. Good eye contact. Appropriate mood and affect. Laboratory Results - last 24 hr 06/10/17 06/10/17 06:10 06:10 WBC 11.3 H RBC 4.49 Hgb 14.0 Hct 40.6 MCV 90.4 MCH 31.1 MCHC 34.4 RDW 14.0 Plt Count 246 MPV 9.1 Neutrophils % 88.8 H Lymphocytes % 8.6 D Monocytes % 2.6 L Eosinophils % 0.0 Basophils % 0.0 Sodium 141 Potassium 4.4 Chloride 102 Carbon Dioxide 30 Anion Gap 9 BUN 27 H Creatinine 0.8 Random Glucose 179 H Calcium 9.5 Active Medications Generic Name Dose Route Start Last Admin Trade Name Freq PRN Reason Stop Dose Admin Acetaminophen 650 mg 06/07/17 13:00 06/10/17 04:05 Tylenol - PO 650 mg Q6H PRN Administration FEVER Albuterol Sulfate 1 amp 06/06/17 00:25 Ventolin 0.083% Nebulizer Soln - NEB Q4H PRN SHORT OF BREATH/WHEEZING Albuterol/Ipratropium 1 amp 06/06/17 08:00 06/10/17 11:10 Duoneb - NEB 1 amp RQID DALE Administration Atorvastatin Calcium 40 mg 06/05/17 22:00 06/09/17 21:09 Lipitor - PO 40 mg HS DALE Administration Hydrochlorothiazide 12.5 mg 06/06/17 10:00 06/10/17 09:21 Hctz - PO 12.5 mg DAILY DALE Administration Ceftriaxone Sodium 1 gm/ 50 mls @ 100 mls/hr 06/09/17 15:00 06/10/17 09:20 Dextrose IVPB 100 mls/hr DAILY DALE Administration Protocol Azithromycin 500 mg/ Dextrose 250 mls @ 250 mls/hr 06/10/17 10:00 06/10/17 09 :21 IVPB 250 mls/hr DAILY D[facility] Administration Levothyroxine Sodium 75 mcg 06/06/17 07:00 06/10/17 06:14 Synthroid - PO 75 mcg DAILY@0700 D[facility] Administration Lisinopril 10 mg 06/06/17 10:00 06/10/17 09:21 Prinivil PO 10 mg DAILY D[facility] Administration Methylprednisolone Sodium Succinate 40 mg 06/10/17 22:00 Solu-Medrol - IVPUSH BID DALE Metoprolol Succinate 50 mg 06/06/17 10:00 06/10/17 09:21 Toprol Xl - PO 50 mg DAILY [facility] Administration Rivaroxaban 20 mg 06/06/17 10:00 06/10/17 09:21 Xarelto - PO 20 mg DAILY [facility] Administration Sodium Chloride 2 spray 06/08/17 12:10 [place] Nasal [place] - NS TID PRN NASAL CONGESTION ASSESSMENT/PLAN: 77 yo F with a pmhx of A-fib (Xarelto), COPD, HTN, HLD, CVA, presented to the ED because of worsening dyspnea with cough, fever, and wheezing. #Acute COPD exacerbation -Duonebs PRN, standing -Solumedrol 1x 125mg in ED -Continue solumederol 40 bid -O2x -Pulm consult #Sepsis 2/2 to CAP -Continue ceftriaxone/azithromycin #A-fib -cont. Xarelto -toprol xl 50 po daily #Hypothyroidism -continue synthroid #HTN -continue Lisinopril/Hctz #HLD -continue statin (lipitor) #FEN/GI -no ivf -replete as needed -sodium controlled diet #DVT Ppx Xarelto Dispo: if patient improves, can likely dc tomorrow Visit type - Emergency Visit Emergency Visit: Yes ED Registration Date: 06/05/17 Care time: The patient presented to the Emergency Department on the above date and was hospitalized for further evaluation of their emergent condition. - New Patient This patient is new to me today: No - Critical Care Critical Care patient: No <Laya Contreras - Last Filed: 06/10/17 20:14> Physical Exam: Patient continues to have shortness of breath, still wheezing. will continue current therapy. Vital Signs Temperature 98.0 F 06/10/17 18:00 Pulse Rate 81 06/10/17 18:00 Respiratory Rate 18 06/10/17 18:00 Blood Pressure 141/76 06/10/17 18:00 O2 Sat by Pulse Oximetry (%) 94 L 06/10/17 07:31 CBCD WBC 11.3 K/mm3 (4.0-10.0) H 06/10/17 06:10 RBC 4.49 M/mm3 (3.60-5.2) 06/10/17 06:10 Hgb 14.0 GM/dL (10.7-15.3) 06/10/17 06:10 Hct 40.6 % (32.4-45.2) 06/10/17 06:10 MCV 90.4 fl (80-96) 06/10/17 06:10 MCHC 34.4 g/dl (32.0-36.0) 06/10/17 06:10 RDW 14.0 % (11.6-15.6) 06/10/17 06:10 Plt Count 246 K/MM3 (134-434) 06/10/17 06:10 MPV 9.1 fl (7.5-11.1) 06/10/17 06:10 CMP Sodium 141 mmol/L (136-145) 06/10/17 06:10 Potassium 4.4 mmol/L (3.5-5.1) 06/10/17 06:10 Chloride 102 mmol/L (98-107) 06/10/17 06:10 Carbon Dioxide 30 mmol/L (21-32) 06/10/17 06:10 Anion Gap 9 (8-16) 06/10/17 06:10 BUN 27 mg/dL (7-18) H 06/10/17 06:10 Creatinine 0.8 mg/dL (0.55-1.02) 06/10/17 06:10 Creat Clearance w eGFR 43.56 (>60) 06/07/17 05:00 Random Glucose 179 mg/dL (74-106) H 06/10/17 06:10 Calcium 9.5 mg/dL (8.5-10.1) 06/10/17 06:10 Total Bilirubin 0.7 mg/dL (0.2-1.0) D 06/07/17 05:00 AST 22 U/L (15-37) 06/07/17 05:00 ALT 23 U/L (12-78) 06/07/17 05:00 Alkaline Phosphatase 66 U/L (45-117) 06/07/17 05:00 Total Protein 8.3 g/dl (6.4-8.2) H 06/07/17 05:00 Albumin 3.8 g/dl (3.4-5.0) 06/07/17 05:00 CARDIAC ENZYMES Creatine Kinase 276 IU/L (26-192) H 06/05/17 16:30 Troponin I 0.27 ng/ml (0.00-0.05) H 06/05/17 23:50 Current Medications Generic Name Dose Route Start Last Admin Trade Name Freq PRN Reason Stop Dose Admin Acetaminophen 650 mg 06/07/17 13:00 06/10/17 04:05 Tylenol - PO 650 mg Q6H PRN Administration FEVER Albuterol Sulfate 1 amp 06/06/17 00:25 Ventolin 0.083% Nebulizer Soln - NEB Q4H PRN SHORT OF BREATH/WHEEZING Albuterol/Ipratropium 1 amp 06/06/17 08:00 06/10/17 16:20 Duoneb - NEB Not Given RQID DALE Atorvastatin Calcium 40 mg 06/05/17 22:00 06/09/17 21:09 Lipitor - PO 40 mg HS DALE Administration Hydrochlorothiazide 12.5 mg 06/06/17 10:00 06/10/17 09:21 Hctz - PO 12.5 mg DAILY D[facility] Administration Ceftriaxone Sodium 1 gm/ 50 mls @ 100 mls/hr 06/09/17 15:00 06/10/17 09:20 Dextrose IVPB 100 mls/hr DAILY D[facility] Administration Protocol Azithromycin 500 mg/ Dextrose 250 mls @ 250 mls/hr 06/10/17 10:00 06/10/17 09 :21 IVPB 250 mls/hr DAILY [facility] Administration Levothyroxine Sodium 75 mcg 06/06/17 07:00 06/10/17 06:14 Synthroid - PO 75 mcg DAILY@0700 [facility] Administration Lisinopril 10 mg 06/06/17 10:00 06/10/17 09:21 Prinivil PO 10 mg DAILY D[facility] Administration Methylprednisolone Sodium Succinate 40 mg 06/10/17 22:00 Solu-Medrol - IVPUSH BID DALE Metoprolol Succinate 50 mg 06/06/17 10:00 06/10/17 09:21 Toprol Xl - PO 50 mg DAILY [facility] Administration Rivaroxaban 20 mg 06/06/17 10:00 06/10/17 09:21 Xarelto - PO 20 mg DAILY [facility] Administration Sodium Chloride 2 spray 06/08/17 12:10 [place] Nasal [place] - NS TID PRN NASAL CONGESTION Home Medications Medication Instructions Recorded Levothyroxine [Synthroid -] 75 mcg PO DAILY 06/11/11 Metoprolol Succinate [Toprol XL -] 50 mg PO DAILY 06/27/12 Cholecalciferol (Vitamin D3) 32,000 unit PO DAILY 09/17/14 [Vitamin D3] Albuterol Sulfate Inhaler - 1 puff IH DAILY 06/05/17 [Ventolin Hfa Inhaler -] Atorvastatin Ca [Lipitor] 40 mg PO HS 06/05/17 Lisinopril/Hydrochlorothiazide 1 each PO DAILY 06/05/17 [Zestoretic 10-12.5 mg Tablet] Rivaroxaban [Xarelto -] 20 mg PO DAILY 06/05/17 Tiotropium [place] [Spiriva] 1 inh IH DAILY 06/05/17
[2017-06-10] MEDS: ATORVASTATIN CA 40 MG TABLET (FP) PO SCH (22:06)
[2017-06-11] MEDS: LEVOTHYROXINE NA 75 MCG TABLET (FP) PO SCH (06:11)
[2017-06-11 07:33] LABS: HEMATOCRIT 38.2 % (32.4-45.2); HEMOGLOBIN 13.1 GM/dL (10.7-15.3); MCH 30.9 pg (25.7-33.7); MCHC 34.3 g/dl (32.0-36.0); MEAN CELL VOLUME 90.1 fl (80-96); MEAN PLT VOLUME 9.2 fl (7.5-11.1); PLATELET COUNT 233 K/MM3 (134-434); RBC 4.24 M/mm3 (3.60-5.2); RDW 13.8 % (11.6-15.6); WHITE BLOOD COUNT 12.4 K/mm3 (4.0-10.0)
[2017-06-11] MEDS ORDERED: PT OWN MED DRAWER 7, Y5N ONE (07:55)
[2017-06-11] MEDS ORDERED: cefTRIAXone SODIUM 1 GM VIAL ONE (07:55)
[2017-06-11] MEDS ORDERED: DEXTROSE 5%-WATER - 50 ML IVPB ONE (07:55)
--- NOTE | 2017-06-11 08:11 | PN ---
Progress Note (short form) - Note Progress Note: Chief Complaint: Events noted, notes reviewed, sitting in a chair, denies any chest pain, dyspnea improving, remains in atrial fibrillation rate controlled at rest History of Present Illness: Seen and examined on telemetry. Events noted, notes reviewed, sitting in a chair , denies any chest pain, dyspnea improving, remains in atrial fibrillation rate controlled at rest Echocardiography revealed normal LV and RV size and function with trace TR - Current Medication List Current Medications: Current Medications Acetaminophen (Tylenol -) 650 mg PO Q6H PRN PRN Reason: FEVER Last Admin: 06/10/17 04:05 Dose: 650 mg Atorvastatin Calcium (Lipitor -) 40 mg PO HS [facility] Last Admin: 06/10/17 22:06 Dose: 40 mg Hydrochlorothiazide (Hctz -) 12.5 mg PO DAILY [facility] Last Admin: 06/10/17 09:21 Dose: 12.5 mg Ceftriaxone Sodium 1 gm/ (Dextrose) 50 mls @ 100 mls/hr IVPB DAILY [facility] PRN Reason: Protocol Last Admin: 06/10/17 09:20 Dose: 100 mls/hr Azithromycin 500 mg/ Dextrose 250 mls @ 250 mls/hr IVPB DAILY [facility] Last Admin: 06/10/17 09:21 Dose: 250 mls/hr Levothyroxine Sodium (Synthroid -) 75 mcg PO DAILY@0700 [facility] Last Admin: 06/11/17 06:11 Dose: 75 mcg Lisinopril (Prinivil) 10 mg PO DAILY [facility] Last Admin: 06/10/17 09:21 Dose: 10 mg Methylprednisolone Sodium Succinate (Solu-Medrol -) 40 mg IVPUSH BID [facility] Last Admin: 06/10/17 22:06 Dose: 40 mg Metoprolol Succinate (Toprol Xl -) 50 mg PO DAILY [facility] Last Admin: 06/10/17 09:21 Dose: 50 mg Rivaroxaban (Xarelto -) 20 mg PO DAILY [facility] Last Admin: 06/10/17 09:21 Dose: 20 mg Sodium Chloride ([place] Nasal [place] -) 2 spray NS TID PRN PRN Reason: NASAL CONGESTION Review of Systems: Constitutional: Denies fever, chills or weight loss Head and Neck: Denies Headache, photophobia or blurring of vision Respiratory: Reports cough with no sputum production Cardiovascular: As noted above Gastrointestinal: Denies nausea, vomiting, diarrhea or abdominal discomfort Genitourinary: Denies frequency or Incontinence Musculoskeletal: No symptoms reported Endocrine: No symptoms reported - Objective Vital Signs: Last Vital Signs Temp Pulse Resp BP Pulse Ox 98.0 F 79 18 139/82 96 06/11/17 07:43 06/11/17 07:43 06/11/17 07:43 06/11/17 07:43 06/11/17 07:42 Intake & Output 06/08/17 06/09/17 06/10/17 06/11/17 23:59 23:59 23:59 23:59 Intake Total 0332 669 0246 110 Balance 2134 106 7628 110 Weight 215 lb 214 lb 12.8 oz 212 lb 9.6 oz 215 lb 3.2 oz Constitutional: Well Nourished Eyes: SHYAY, EOMI HEENT: Atraumatic Neck: Supple No JVD No Bruit Cardiovascular: S1 S2 Irregularly Irregular Respiratory: Diminished at the Bases Gastrointestinal: Soft Benign Normal Bowel Sounds Ext: Trace Edema Labs: CBC, BMP 06/11/17 06:35 06/10/17 06:10 Assessment/Plan ASSESSMENT: 1. Acute COPD Exacerbation, resolving 2. Pneumonia, resolving 3. CAD angina pectoris with evidence of demand ischemia 4. Diastolic LV dysfunction with class 0 NYHA classification LV failure 5. Persistent atrial fibrillation rate controlled [id number] score of 7 on NOAC 's/Xarelto 6. HTN 7. Hyperlipidemia 8. History of CVA 9. Hypothyroidism PLAN: 1. Oral steroids and bronchodilators 2. Antibiotic as per the primary team 3. Continue Toprol XL 4. Continue Zesteretic 5. Continue Lipitor 6. Continue Xarelto 7. Additional cardiovascular evaluation to be performed as outpatient including MPI study to assess ischemic burden Stephen Collins M.D.
[2017-06-11 09:07] LABS: PLATELET ESTIMATE NORMAL
[2017-06-11] MEDS: methylPREDNISolone NA SUCC 40 MG/1 ML VIAL IVPUSH SCH (09:25)
[2017-06-11] MEDS: CEFTRIAXONE 1 GM in DEXTROSE 5%-WATER - 50 ML IVPB SCH (09:25)
[2017-06-11] MEDS: LISINOPRIL 10 MG TABLET (FP) PO SCH (09:38)
[2017-06-11] MEDS: RIVAROXABAN 20 MG TABLET PO SCH (09:38)
[2017-06-11] MEDS: AZITHROMYCIN IVPB 500 MG in DEXTROSE 5%-WATER - 250 ML IVPB SCH (09:38)
[2017-06-11] MEDS: HYDROCHLOROTHIAZIDE 12.5 MG CAPSULE (FP) PO SCH (09:39)
[2017-06-11] MEDS ORDERED: PANTOPRAZOLE 40 MG TABLET (FP) PO SCH (10:00)
--- NOTE | 2017-06-11 10:33 | PN ---
Progress Note, Physician History of Present Illness: pulmonary alert,oob-chair,-sob,-cp - Current Medication List Current Medications: Active Medications Acetaminophen (Tylenol -) 650 mg PO Q6H PRN PRN Reason: FEVER Last Admin: 06/10/17 04:05 Dose: 650 mg Atorvastatin Calcium (Lipitor -) 40 mg PO HS [facility] Last Admin: 06/10/17 22:06 Dose: 40 mg Hydrochlorothiazide (Hctz -) 12.5 mg PO DAILY [facility] Last Admin: 06/11/17 09:39 Dose: 12.5 mg Ceftriaxone Sodium 1 gm/ (Dextrose) 50 mls @ 100 mls/hr IVPB DAILY [facility] PRN Reason: Protocol Last Admin: 06/11/17 09:25 Dose: 100 mls/hr Azithromycin 500 mg/ Dextrose 250 mls @ 250 mls/hr IVPB DAILY [facility] Last Admin: 06/11/17 09:38 Dose: 250 mls/hr Levothyroxine Sodium (Synthroid -) 75 mcg PO DAILY@0700 [facility] Last Admin: 06/11/17 06:11 Dose: 75 mcg Lisinopril (Prinivil) 10 mg PO DAILY [facility] Last Admin: 06/11/17 09:38 Dose: 10 mg Methylprednisolone Sodium Succinate (Solu-Medrol -) 40 mg IVPUSH BID [facility] Last Admin: 06/11/17 09:25 Dose: 40 mg Metoprolol Succinate (Toprol Xl -) 50 mg PO DAILY [facility] Last Admin: 06/11/17 09:39 Dose: 50 mg Pantoprazole Sodium (Protonix -) 40 mg PO DAILY [facility] Last Admin: 06/11/17 09:39 Dose: 40 mg Rivaroxaban (Xarelto -) 20 mg PO DAILY [facility] Last Admin: 06/11/17 09:38 Dose: 20 mg Sodium Chloride ([place] Nasal [place] -) 2 spray NS TID PRN PRN Reason: NASAL CONGESTION - Objective Vital Signs: Vital Signs Temperature 98.0 F 06/11/17 07:43 Pulse Rate 79 06/11/17 07:43 Respiratory Rate 18 06/11/17 07:43 Blood Pressure 139/82 06/11/17 07:43 O2 Sat by Pulse Oximetry (%) 96 06/11/17 07:42 Constitutional: Yes: Well Nourished, Calm Eyes: Yes: WNL HENT: Yes: WNL Neck: Yes: WNL Cardiovascular: Yes: Pulse Irregular, S1, S2 Respiratory: Yes: Diminished Gastrointestinal: Yes: Normal Bowel Sounds, Soft Extremities: Yes: WNL Edema: No Labs: CBC, BMP 06/11/17 06:35 Assessment/Plan Problem List - Problems (1) COPD with acute exacerbation Code(s): J44.1 - CHRONIC OBSTRUCTIVE PULMONARY DISEASE W (ACUTE) EXACERBATION (2) Pneumonia Code(s): J18.9 - PNEUMONIA, UNSPECIFIED ORGANISM (3) Sepsis Code(s): A41.9 - SEPSIS, UNSPECIFIED ORGANISM (4) Afib Code(s): I48.91 - UNSPECIFIED ATRIAL FIBRILLATION Qualifiers: Atrial fibrillation type: unspecified Qualified Code(s): I48.91 - Unspecified atrial fibrillation (5) Elevated troponin Code(s): R74.8 - ABNORMAL LEVELS OF OTHER SERUM ENZYMES (6) Hypertension Code(s): I10 - ESSENTIAL (PRIMARY) HYPERTENSION (7) Hyperlipidemia Code(s): E78.5 - HYPERLIPIDEMIA, UNSPECIFIED Assessment/Plan Acute COPD Exacerbation improving Pneumonia Sepsis +Troponins likely [place]and Ischemia Atrial Fibrillation HTN Hyperlipidemia h/o CVA Hemoptysis - prednisone 60mg daily with taper - inhaled bronchodilators standing and PRN - antibiotics - O2 to keep SpO2 >90% - rate control - anticoagulation - outpt PFTs and f/u of chest imaging to ensure resolution DR EUGENE
[2017-06-11 14:12] VITALS: BP 124/70; PULSE 95; TEMP 97.9
--- NOTE | 2017-06-11 14:14 | DS ---
Physical Exam: Microbiology 06/07/17 09:00 Urine For Antigen Detection Legionella Antigen - Final 06/07/17 09:00 Urine For Antigen Detection Streptococcus pneumoniae Antigen (M - Final 06/05/17 17:00 Nasopharyngeal Swab Influenza Types A,B Antigen (TEO) - Final 06/05/17 17:00 Nasopharyngeal Swab - Final 06/05/17 17:00 Blood - Peripheral Venous Blood Culture - Final NO GROWTH AFTER 5 DAYS INCUBATION 06/05/17 16:30 Blood - Peripheral Venous Blood Culture - Final NO GROWTH AFTER 5 DAYS INCUBATION Selected Entries 06/05/17 06/11/17 06/11/17 15:50 07:42 14:11 Temperature 101.3 F H 97.9 F Pulse Rate 95 H Pulse Rate [ 120 H Right Radial] Respiratory 22 18 Rate Blood Pressure 124/70 Blood Pressure 116/80 [Left Arm] O2 Sat by Pulse 98 96 Oximetry (%) Oxygen Delivery Nasal Cannula Method Oxygen Flow 2 3 Rate Laboratory Tests 06/05/17 06/05/17 06/05/17 16:30 16:30 16:30 WBC 6.0 Hgb Hct Plt Count PT with INR INR Sodium Potassium Chloride Carbon Dioxide Anion Gap BUN Creatinine Random Glucose Hemoglobin A1c % Lactic Acid 1.6 Troponin I 0.30 H Triglycerides Cholesterol Total LDL Cholesterol HDL Cholesterol TSH 6.56 H Free T4 06/05/17 06/06/17 06/06/17 23:50 06:20 06:20 WBC Hgb Hct Plt Count PT with INR 18.20 H INR 1.61 H D Sodium Potassium Chloride Carbon Dioxide Anion Gap BUN Creatinine Random Glucose Hemoglobin A1c % Lactic Acid Troponin I 0.27 H Triglycerides 84 Cholesterol 108 Total LDL Cholesterol 57 HDL Cholesterol 44 TSH Free T4 1.09 06/06/17 06/10/17 06/11/17 06:20 06:10 06:35 WBC 12.4 H Hgb 13.1 Hct 38.2 Plt Count 233 PT with INR INR Sodium 141 Potassium 4.4 Chloride 102 Carbon Dioxide 30 Anion Gap 9 BUN 27 H Creatinine 0.8 Random Glucose 179 H Hemoglobin A1c % 6.3 H Lactic Acid Troponin I Triglycerides Cholesterol Total LDL Cholesterol HDL Cholesterol TSH Free T4 CXR- large heart, prominent hilar Chest CT- small patchy b/l lower lobe pna, mild cardiomegaly, minimal to mild left basilar bronchiectasis Echo- normal HOSPITAL COURSE: Date of Admission:06/05/17 Date of Discharge: 06/11/17 77 yo F with a pmhx of A-fib (Xarelto), COPD, HTN, HLD, CVA, presented to the ED because of worsening dyspnea with cough, fever, and wheezing over the last 4 days admitted for acute copd exacerbation with community acquired pneumonia. Patient treated with IV steroids and Iv antibiotics (ceftraixone/azithromycin). Patient's symptoms improved significantly and will be d/c on prednisone taper with protonix. She will f/u with pulm, cardio, and pcp within 1 week. Minutes to complete discharge: 40 <Junior Ortiz - Last Filed: 06/11/17 15:13> Physical Exam: Patient is comfortable, no acute distress, wants to go home. PE: Gae BL, less wheezing . Vital Signs Temperature 97.9 F 06/11/17 14:11 Pulse Rate 95 H 06/11/17 14:11 Respiratory Rate 18 06/11/17 14:11 Blood Pressure 124/70 06/11/17 14:11 O2 Sat by Pulse Oximetry (%) 92 L 06/11/17 11:57 CBCD WBC 12.4 K/mm3 (4.0-10.0) H 06/11/17 06:35 RBC 4.24 M/mm3 (3.60-5.2) 06/11/17 06:35 Hgb 13.1 GM/dL (10.7-15.3) 06/11/17 06:35 Hct 38.2 % (32.4-45.2) 06/11/17 06:35 MCV 90.1 fl (80-96) 06/11/17 06:35 MCHC 34.3 g/dl (32.0-36.0) 06/11/17 06:35 RDW 13.8 % (11.6-15.6) 06/11/17 06:35 Plt Count 233 K/MM3 (134-434) 06/11/17 06:35 MPV 9.2 fl (7.5-11.1) 06/11/17 06:35 CMP Sodium 141 mmol/L (136-145) 06/10/17 06:10 Potassium 4.4 mmol/L (3.5-5.1) 06/10/17 06:10 Chloride 102 mmol/L (98-107) 06/10/17 06:10 Carbon Dioxide 30 mmol/L (21-32) 06/10/17 06:10 Anion Gap 9 (8-16) 06/10/17 06:10 BUN 27 mg/dL (7-18) H 06/10/17 06:10 Creatinine 0.8 mg/dL (0.55-1.02) 06/10/17 06:10 Creat Clearance w eGFR 43.56 (>60) 06/07/17 05:00 Random Glucose 179 mg/dL (74-106) H 06/10/17 06:10 Calcium 9.5 mg/dL (8.5-10.1) 06/10/17 06:10 Total Bilirubin 0.7 mg/dL (0.2-1.0) D 06/07/17 05:00 AST 22 U/L (15-37) 06/07/17 05:00 ALT 23 U/L (12-78) 06/07/17 05:00 Alkaline Phosphatase 66 U/L (45-117) 06/07/17 05:00 Total Protein 8.3 g/dl (6.4-8.2) H 06/07/17 05:00 Albumin 3.8 g/dl (3.4-5.0) 06/07/17 05:00 CARDIAC ENZYMES Creatine Kinase 276 IU/L (26-192) H 06/05/17 16:30 Troponin I 0.27 ng/ml (0.00-0.05) H 06/05/17 23:50 Current Medications Generic Name Dose Route Start Last Admin Trade Name Ammonq PRN Reason Stop Dose Admin Acetaminophen 650 mg 06/07/17 13:00 06/10/17 04:05 Tylenol - PO 650 mg Q6H PRN Administration FEVER Atorvastatin Calcium 40 mg 06/05/17 22:00 06/10/17 22:06 Lipitor - PO 40 mg HS DALE Administration Hydrochlorothiazide 12.5 mg 06/06/17 10:00 06/11/17 09:39 Hctz - PO 12.5 mg DAILY DALE Administration Ceftriaxone Sodium 1 gm/ 50 mls @ 100 mls/hr 06/09/17 15:00 06/11/17 09:25 Dextrose IVPB 100 mls/hr DAILY DALE Administration Protocol Azithromycin 500 mg/ Dextrose 250 mls @ 250 mls/hr 06/10/17 10:00 06/11/17 09 :38 IVPB 250 mls/hr DAILY DALE Administration Levothyroxine Sodium 75 mcg 06/06/17 07:00 06/11/17 06:11 Synthroid - PO 75 mcg DAILY@0700 DALE Administration Lisinopril 10 mg 06/06/17 10:00 06/11/17 09:38 Prinivil PO 10 mg DAILY DALE Administration Methylprednisolone Sodium Succinate 40 mg 06/10/17 22:00 06/11/17 09:25 Solu-Medrol - IVPUSH 40 mg BID DALE Administration Metoprolol Succinate 50 mg 06/06/17 10:00 06/11/17 09:39 Toprol Xl - PO 50 mg DAILY DALE Administration Pantoprazole Sodium 40 mg 06/11/17 10:00 06/11/17 09:39 Protonix - PO 40 mg DAILY DALE Administration Rivaroxaban 20 mg 06/06/17 10:00 06/11/17 09:38 Xarelto - PO 20 mg DAILY DALE Administration Sodium Chloride 2 spray 06/08/17 12:10 [place] Nasal [place] - NS TID PRN NASAL CONGESTION Home Medications Medication Instructions Recorded Levothyroxine [Synthroid -] 75 mcg PO DAILY 06/11/11 Metoprolol Succinate [Toprol XL -] 50 mg PO DAILY 06/27/12 Cholecalciferol (Vitamin D3) 32,000 unit PO DAILY 09/17/14 [Vitamin D3] Albuterol Sulfate Inhaler - 1 puff IH DAILY 06/05/17 [Ventolin HFA Inhaler -] Atorvastatin Ca [Lipitor] 40 mg PO HS 06/05/17 Lisinopril/Hydrochlorothiazide 1 each PO DAILY 06/05/17 [Zestoretic 10-12.5 mg Tablet] Rivaroxaban [Xarelto -] 20 mg PO DAILY 06/05/17 Tiotropium Cade [Spiriva] 1 inh IH DAILY 06/05/17 Pantoprazole Sodium [Protonix -] 40 mg PO DAILY #30 tablet.ec 06/11/17 Prednisone See Taper PO DAILY #42 tablet 06/11/17 Patient will go home on tapered dose Prednisone for 12 days. <Laya Contreras - Last Filed: 06/11/17 17:04> Discharge Summary Reason For Visit: ATRIAL FIBRILLATION Current Active Problems Afib (Acute) COPD with acute exacerbation (Acute) Demand ischemia (Acute) Elevated troponin (Acute) Hyperlipidemia (Acute) Hypertension (Acute) Pneumonia (Acute) Sepsis (Acute) - Home Medications Comprehensive Discharge Medication List: Ambulatory Orders Levothyroxine [Synthroid -] 75 mcg PO DAILY 06/11/11 Metoprolol Succinate [Toprol XL -] 50 mg PO DAILY 06/27/12 Cholecalciferol (Vitamin D3) [Vitamin D3] 32,000 unit PO DAILY 09/17/14 Albuterol Sulfate Inhaler - [Ventolin HFA Inhaler -] 1 puff IH DAILY 06/05/17 Atorvastatin Ca [Lipitor] 40 mg PO HS 06/05/17 Lisinopril/Hydrochlorothiazide [Zestoretic 10-12.5 mg Tablet] 1 each PO DAILY Rivaroxaban [Xarelto -] 20 mg PO DAILY 06/05/17 Tiotropium Cade [Spiriva] 1 inh IH DAILY 06/05/17 Pantoprazole Sodium [Protonix -] 40 mg PO DAILY #30 tablet.ec 06/11/17 Prednisone See Taper PO DAILY #42 tablet 06/11/17 <Junior Ortiz - Last Filed: 06/11/17 15:13> Current Active Problems Afib (Acute) COPD with acute exacerbation (Acute) Demand ischemia (Acute) Elevated troponin (Acute) Hyperlipidemia (Acute) Hypertension (Acute) Pneumonia (Acute) Sepsis (Acute) - Home Medications Comprehensive Discharge Medication List: Ambulatory Orders Levothyroxine [Synthroid -] 75 mcg PO DAILY 06/11/11 Metoprolol Succinate [Toprol XL -] 50 mg PO DAILY 06/27/12 Cholecalciferol (Vitamin D3) [Vitamin D3] 32,000 unit PO DAILY 09/17/14 Albuterol Sulfate Inhaler - [Ventolin HFA Inhaler -] 1 puff IH DAILY 06/05/17 Atorvastatin Ca [Lipitor] 40 mg PO HS 06/05/17 Lisinopril/Hydrochlorothiazide [Zestoretic 10-12.5 mg Tablet] 1 each PO DAILY Rivaroxaban [Xarelto -] 20 mg PO DAILY 06/05/17 Tiotropium Cade [Spiriva] 1 inh IH DAILY 06/05/17 Pantoprazole Sodium [Protonix -] 40 mg PO DAILY #30 tablet.ec 06/11/17 Prednisone See Taper PO DAILY #42 tablet 06/11/17 <Laya Contreras - Last Filed: 06/11/17 17:04> Condition: Stable - Instructions Diet, Activity, Other Instructions: You were in the hospital for a COPD exacerbation and pneumonia Please follow up with your pcp within 1 week, if you do not have one, contact information for the clinic has been provided. Please follow up with the drafting clerk within 1 week. A referral has been provided. You will need outpatient pulmonary function tests and chest CT. Please continue your home medications as prescribed. Please continue the following prednisone taper: 60 mg daily x 2 days (6 tablets daily)-- stop on 06/13 50 mg daily x 2 days (5 tablets daily)-- stop on 06/15 40 mg daily x 2 days (4 tablets daily)-- stop on 06/17 30 mg daily x 2 days (3 tablets daily)-- stop on 06/19 20 mg daily x 2 days (2 tablets daily)-- stop on 06/21 10 mg daily x 2 days (1 tablet daily)-- stop on 06/23 -STOP Take protonix while on prednisose, please do not take any NSAIDs while on the Prednisone to decrease the risk of gastric ulcers and bleeding. If you have chest pain, shortness of breath, or any new/worsening symptoms please come back to the hospital immediately. Referrals: [facility] [place] [facility] [Provider Group] Elieser Davis MD [Staff Physician] - Disposition: HOME This patient is new to me today: No Emergency Visit: Yes ED Registration Date: 06/05/17 Care time: The patient presented to the Emergency Department on the above date and was hospitalized for further evaluation of their emergent condition. Critical Care patient: No - Discharge Referral Referred to [facility] Med P.C[facility] No <Junior Ortiz - Last Filed: 06/11/17 15:13>
== END 2017-06-11 17:23 | disposition home or self-care (01) | DRG 871 ==
LOC: JER 15:33 → JERBED 18:31 → J4W 21:21
PROVIDERS: ADMIT Internal Medicine; ATTEND Internal Medicine
DX: A41.9 Sepsis, unspecified organism (principal); J18.9 Pneumonia, unspecified organism; J44.1 Chronic obstructive pulmonary disease with (acute) exacerbation; I24.8 Other forms of acute ischemic heart disease; R04.2 Hemoptysis; I48.1 Persistent atrial fibrillation; I11.0 Hypertensive heart disease with heart failure; I50.9 Heart failure, unspecified; E78.5 Hyperlipidemia, unspecified; Z86.73 Personal history of transient ischemic attack (TIA), and cerebral infarction without residual deficits; I25.119 Atherosclerotic heart disease of native coronary artery with unspecified angina pectoris; E03.9 Hypothyroidism, unspecified; E87.6 Hypokalemia; E83.42 Hypomagnesemia
CPT/HCPCS: 36415; 71045-TC-FY; 71250-TC; 80048; 80053; 80061; 82550; 82553; 82803; 83036; 83605; 83721; 83735; 83880; 84100; 84439; 84443; 84484; 85025; 85027; 85610; 87040; 87070; 87077; 87205; 87420; 87804; 87899; 93005; 93010; 93306-TC; 94640; 94761; 97116-GP; 97161-GP; 99283-25; J0131; J7030; J7620

== ENCOUNTER 2017-07-12 17:17 | Observation (INO) | payer OTHER, MEDICARE ==
--- NOTE | 2017-07-12 17:30 | PDOC ---
History of Present Illness - General Chief Complaint: Hemoptysis Stated Complaint: PCP SENT Time Seen by Provider: 07/12/17 17:29 - History of Present Illness Initial Comments: 07/12/17 17:41 Ms. Beltran is a 77 yo female w/ pmh of COPD, Afib (on xarelto), HTN, HLD, CVA ( brain stem), and hypothyroidism admitted 06/05-06/11 for afib, COPD exacerbation, and pneumonia who presents for evaluation after she had episode of coughing up blood today. She reports she first noticed this at 2am this morning when she woke up to use the restroom and saw blood in her mouth. She went back to bed however coughed up approximately 1 shot glass worth of blood this morning. This prompted her to go to urgent care who sent her to ER for further evaluation. The patient denies chest pain, shortness of breath, headache and dizziness. Denies fever, chills, nausea, diarrhea and constipation. Denies dysuria, frequency, urgency and hematuria. Allergies: Shellfish Past History - Past Medical History Allergies/Adverse Reactions: Allergies Allergy/AdvReac Type Severity Reaction Status Date / Time shellfish derived Allergy Verified 07/12/17 17:18 Home Medications: Ambulatory Orders Levothyroxine [Synthroid -] 75 mcg PO DAILY 06/11/11 Metoprolol Succinate [Toprol XL -] 50 mg PO DAILY 06/27/12 Cholecalciferol (Vitamin D3) [Vitamin D3] 32,000 unit PO DAILY 09/17/14 Albuterol Sulfate Inhaler - [Ventolin HFA Inhaler -] 1 puff IH DAILY 06/05/17 Atorvastatin Ca [Lipitor] 40 mg PO HS 06/05/17 Lisinopril/Hydrochlorothiazide [Zestoretic 10-12.5 mg Tablet] 1 each PO DAILY Rivaroxaban [Xarelto -] 20 mg PO DAILY 06/05/17 Tiotropium [place] [Spiriva] 1 inh IH DAILY 06/05/17 Pantoprazole Sodium [Protonix -] 40 mg PO DAILY #30 tablet.ec 06/11/17 Prednisone See Taper PO DAILY #42 tablet 06/11/17 Anemia: No Asthma: No Cancer: No Cardiac Disorders: Yes (ASHD, SOB(HAD STRESS TEST) a.fib) CVA: No COPD: Yes (and bronchiectasis) CHF: No DVT: No Dementia: No Diabetes: No GI Disorders: Yes (DIVERTICULOSIS, COLON POLYPS) Disorders: No HTN: Yes Hypercholesterolemia: Yes Liver Disease: No Seizures: No Thyroid Disease: Yes - Surgical History Abdominal Surgery: No Appendectomy: No Cardiac Surgery: No Cholecystectomy: No Lung Surgery: No Neurologic Surgery: No Orthopedic Surgery: Yes (carpo-tunnel right hand) - Suicide/Smoking/Psychosocial Hx Smoking History: Former smoker Have you smoked in the past 12 months: No If you are a former smoker, when did you quit?: 1989 Information on smoking cessation initiated: No Hx Alcohol Use: No Drug/Substance Use Hx: No Substance Use Type: None Hx Substance Use Treatment: No Review of Systems - Review of Systems Comments:: 07/12/17 20:28 GENERAL/CONSTITUTIONAL: No fever or chills. No weakness. HEAD, EYES, EARS, NOSE AND THROAT: No change in vision. No ear pain or discharge. No sore throat. CARDIOVASCULAR: No chest pain or shortness of breath RESPIRATORY: +Cough as described. No wheezing, or hemoptysis. GASTROINTESTINAL: No nausea, vomiting, diarrhea or constipation. GENITOURINARY: No dysuria, frequency, or change in urination. MUSCULOSKELETAL: No joint or muscle swelling or pain. No neck or back pain. SKIN: No rash NEUROLOGIC: No headache, vertigo, loss of consciousness, or change in strength/ sensation. ENDOCRINE: No increased thirst. No abnormal weight change HEMATOLOGIC/LYMPHATIC: No anemia, easy bleeding, or history of blood clots. ALLERGIC/IMMUNOLOGIC: No hives or skin allergy. *Physical Exam - Vital Signs Last Vital Signs Temp Pulse Resp BP Pulse Ox 98.4 F 85 18 139/74 100 07/12/17 17:19 07/12/17 17:19 07/12/17 17:19 07/12/17 17:19 07/12/17 17:19 - Physical Exam Comments: 07/12/17 20:28 GENERAL: Awake, alert, and fully oriented, in no acute distress HEAD: No signs of trauma, normocephalic, atraumatic EYES: PERRLA, EOMI, sclera anicteric, conjunctiva clear ENT: Auricles normal inspection, hearing grossly normal, nares patent, oropharynx clear without exudates. Moist mucosa NECK: Normal ROM, supple, no lymphadenopathy, JVD, or masses LUNGS: +Left middle lobe ronchi noted. No distress, speaks full sentences HEART: Regular rate and rhythm, normal S1 and S2, no murmurs, rubs or gallops, peripheral pulses normal and equal bilaterally. ABDOMEN: Soft, nontender, normoactive bowel sounds. No guarding, no rebound. No masses EXTREMITIES: Normal inspection, Normal range of motion, no edema. No clubbing or cyanosis. NEUROLOGICAL: Cranial nerves II through XII grossly intact. Normal speech, normal gait, no focal sensorimotor deficits SKIN: Warm, Dry, normal turgor, no rashes or lesions noted. Heart Score/ECG Review - History History: Moderately suspicious - Electrocardiogram EKG: Normal - Age Age: >/= 65 - Risk Factors Risk Factors Heart Score: Yes Hx Hypercholesterolemia, Yes Hx Hypertension Based on the list above the patient has:: 1-2 risk factors - Troponin Troponin: >/=3x normal limit - Score Heart Score - Total: 6 ED Treatment Course - LABORATORY CBC & Chemistry Diagram: 07/12/17 18:14 07/12/17 18:14 Medical Decision Making - Medical Decision Making 07/12/17 20:33 Ms. Beltran is a 77 yo female w/ pmh as described who presents for evaluation of hemoptysis. Patient appears well however history concerning given elevated troponin as below and prior cardiac history. HEART score currently 6. PCP Dr. You. Paging inpatient team for admission. 07/12/17 22:10 Discussed with inpatient team who would like Chest CT for PE r/o. Ordered. Patient admitted. Laboratory Results - last 24 hr 07/12/17 07/12/17 07/12/17 18:14 18:14 18:14 WBC 7.5 D RBC 4.49 Hgb 13.6 Hct 40.9 MCV 91.1 MCH 30.3 MCHC 33.3 RDW 15.1 Plt Count 304 D MPV 8.7 Neutrophils % 64.2 D Lymphocytes % 25.1 D Monocytes % 8.3 D Eosinophils % 1.5 D Basophils % 0.9 D Nucleated RBC % 0 PT with INR 27.70 H INR 2.45 H D PTT (Actin FS) 40.5 H Sodium 140 Potassium 3.7 Chloride 106 Carbon Dioxide 27 Anion Gap 7 L BUN 15 Creatinine 0.8 Creat Clearance w eGFR > 60 Random Glucose 99 Calcium 8.9 Total Bilirubin 1.7 H D AST 16 ALT 24 Alkaline Phosphatase 72 Creatine Kinase 62 Troponin I 0.35 H Total Protein 7.2 Albumin 3.7 Blood Type Antibody Screen 07/12/17 18:14 WBC RBC Hgb Hct MCV MCH MCHC RDW Plt Count MPV Neutrophils % Lymphocytes % Monocytes % Eosinophils % Basophils % Nucleated RBC % PT with INR INR PTT (Actin FS) Sodium Potassium Chloride Carbon Dioxide Anion Gap BUN Creatinine Creat Clearance w eGFR Random Glucose Calcium Total Bilirubin AST ALT Alkaline Phosphatase Creatine Kinase Troponin I Total Protein Albumin Blood Type AB POSITIVE Antibody Screen Negative *DC/Admit/Observation/Transfer Diagnosis at time of Disposition: Hemoptysis, Elevated troponin - Discharge Dispostion Decision to Admit order: Yes - Referrals - Patient Instructions - Post Discharge Activity
[2017-07-12 18:26] LABS: BASO % 0.9 % (0-2.0); EOS % 1.5 % (0-4.5); HEMATOCRIT 40.9 % (32.4-45.2); HEMOGLOBIN 13.6 GM/dL (10.7-15.3); LYMPH % 25.1 % (8-40); MCH 30.3 pg (25.7-33.7); MCHC 33.3 g/dl (32.0-36.0); MEAN CELL VOLUME 91.1 fl (80-96); MEAN PLT VOLUME 8.7 fl (7.5-11.1); MONO % 8.3 % (3.8-10.2); NEUT % 64.2 % (42.8-82.8); PLATELET COUNT 304 K/MM3 (134-434); RBC 4.49 M/mm3 (3.60-5.2); RDW 15.1 % (11.6-15.6); WHITE BLOOD COUNT 7.5 K/mm3 (4.0-10.0)
--- NOTE | 2017-07-12 18:38 | PDOC ---
Attending Attestation - Resident Resident Name: Cam Bob - ED Attending Attestation I have performed the following: I have examined & evaluated the patient, The case was reviewed & discussed with the resident, I agree w/resident's findings & plan, Exceptions are as noted - HPI HPI: 07/12/17 18:35 Ms Beltran is a 77 yo F with a h/o COPD, Afib (on xarelto), HTN, HLD, CVA (brain stem), and hypothyroidism admitted 06/05-06/11 for afib, COPD exacerbation, and pneumonia who presents for evaluation after she had episode of coughing up blood today. Small amount of bleeding noted No chest pain, shortness of breath no palpitations 07/12/17 17:43 - Physicial Exam PE: 07/12/17 18:36 GENERAL: The patient is in no acute distress. LUNGS: Breath sounds equal, clear to auscultation bilaterally. No wheezes, and no crackles. HEART: Irregularly irregular, without murmur, rub or gallop. ABDOMEN: Soft, nontender, normoactive bowel sounds. EXTREMITIES: Normal range of motion, no edema. NEUROLOGICAL: Cranial nerves II through XII grossly intact. Normal speech. No focal neurological deficits. MUSCULOSKELETAL: Back non-tender to palpation, no CVA tenderness SKIN: Warm, Dry, normal turgor, no rashes or lesions noted. - Medical Decision Making 07/12/17 18:37 77 yo F presenting to the Er with a complaint of submassive hemoptysis today No shortness of breath recent dx of pneumonia Pt on xeralto Will do: Labs CXR EKG Re assess 07/12/17 19:17 Laboratory Tests 07/12/17 07/12/17 07/12/17 18:14 18:14 18:14 WBC 7.5 D Hgb 13.6 Hct 40.9 Plt Count 304 D INR 2.45 H D BUN 15 Creatinine 0.8 Troponin I 0.35 H EKG: Afib rate of 83 bpm, axis nml, no ST elevations or depressions, t wave flattening II, aVF, v6 Will place on observation clinical impression: elevated troponin, initial presentation
[2017-07-12 18:42] LABS: INR 2.45 (0.82-1.09); PROTHROMBIN TIME (PATIENT) 27.7 SEC (9.7-13.0)
[2017-07-12 18:45] LABS: ACTIVATED PTT 40.5 SECONDS (26.9-34.4)
[2017-07-12 18:56] LABS: ALBUMIN 3.7 g/dl (3.4-5.0); ANION GAP 7 (8-16); BILIRUBIN,TOTAL 1.7 mg/dL (0.2-1.0); BLOOD UREA NITROGEN 15 mg/dL (7-18); CALCIUM 8.9 mg/dL (8.5-10.1); CHLORIDE 106 mmol/L (98-107); CO2 27 mmol/L (21-32); CREATININE 0.8 mg/dL (0.55-1.02); GLUCOSE,RANDOM 99 mg/dL (74-106); POTASSIUM 3.7 mmol/L (3.5-5.1); SGOT/AST 16 U/L (15-37); SGPT/ALT 24 U/L (12-78); SODIUM 140 mmol/L (136-145); TOT PROT 7.2 g/dl (6.4-8.2)
[2017-07-12 18:59] LABS: ALK PHOS 72 U/L (45-117)
[2017-07-13 06:11] LABS: BASO % 0.7 % (0-2.0); EOS % 1.3 % (0-4.5); HEMATOCRIT 40.8 % (32.4-45.2); HEMOGLOBIN 13.7 GM/dL (10.7-15.3); LYMPH % 33.4 % (8-40); MCH 30.6 pg (25.7-33.7); MCHC 33.6 g/dl (32.0-36.0); MEAN CELL VOLUME 91.1 fl (80-96); MEAN PLT VOLUME 8.8 fl (7.5-11.1); MONO % 8.2 % (3.8-10.2); NEUT % 56.4 % (42.8-82.8); PLATELET COUNT 249 K/MM3 (134-434); RBC 4.47 M/mm3 (3.60-5.2); RDW 15.3 % (11.6-15.6); WHITE BLOOD COUNT 6.9 K/mm3 (4.0-10.0)
[2017-07-13 06:34] LABS: ANION GAP 8 (8-16); BLOOD UREA NITROGEN 15 mg/dL (7-18); CALCIUM 9.3 mg/dL (8.5-10.1); CHLORIDE 106 mmol/L (98-107); CO2 28 mmol/L (21-32); CREATININE 0.7 mg/dL (0.55-1.02); GLUCOSE,RANDOM 115 mg/dL (74-106); POTASSIUM 3.7 mmol/L (3.5-5.1); SODIUM 142 mmol/L (136-145)
[2017-07-13] MEDS ORDERED: LEVOTHYROXINE NA 25 MCG TABLET (FP) ONE (06:34)
[2017-07-13] MEDS: LEVOTHYROXINE NA 75 MCG TABLET (FP) PO SCH (07:02)
[2017-07-13 07:40] LABS: INR 1.63 (0.82-1.09); PROTHROMBIN TIME (PATIENT) 18.4 SEC (9.7-13.0)
[2017-07-13] MEDS ORDERED: LISINOPRIL PO SCH (10:00)
[2017-07-13] MEDS ORDERED: [UNRECOGNIZED DRUG - OTHER] PO SCH (10:00)
[2017-07-13] MEDS ORDERED: [UNRECOGNIZED DRUG - OTHER] PO SCH (10:00)
[2017-07-13] MEDS ORDERED: HYDROCHLOROTHIAZIDE PO SCH (10:00)
[2017-07-13] MEDS ORDERED: ALBUTEROL SO4 18 GM HFA INHALER IH PRN (10:00)
[2017-07-13] MEDS ORDERED: CHOLECALCIFEROL PO SCH (10:00)
[2017-07-13] MEDS: TIOTROPIUM BROMIDE 18 MCG CAPSULES IH SCH (10:29)
[2017-07-13] MEDS: LISINOPRIL 10 MG TABLET (FP) PO SCH (10:29)
[2017-07-13] MEDS: HYDROCHLOROTHIAZIDE 12.5 MG CAPSULE (FP) PO SCH (10:29)
[2017-07-13] MEDS: PANTOPRAZOLE 40 MG TABLET (FP) PO SCH (10:29)
[2017-07-13] MEDS: ATORVASTATIN CA 40 MG TABLET (FP) PO SCH ×2 (10:31→21:29)
--- NOTE | 2017-07-13 10:43 | PN ---
Progress Note (short form) - Note Progress Note: PULMONARY CONSULTATION DICTATED 07/13/17 IMP HEMOPTYSIS ? BRONCHITIS,?UPPER AIRWAY DYSPNEA COPD + TROPONINS AFIB H/O CVA HTN HLD PLAN QUANTIFY HEMOPTYSIS TREND TROPONINS INHALED BRONCHODILATORS ABX CARDIOLOGY EVALUATION ENT EVALUATION MONITORT CRYS EUGENE Problem List - Problems (1) COPD (chronic obstructive pulmonary disease) Code(s): J44.9 - CHRONIC OBSTRUCTIVE PULMONARY DISEASE, UNSPECIFIED (2) Elevated troponin Code(s): R74.8 - ABNORMAL LEVELS OF OTHER SERUM ENZYMES (3) Hemoptysis Code(s): R04.2 - HEMOPTYSIS (4) Afib Code(s): I48.91 - UNSPECIFIED ATRIAL FIBRILLATION Qualifiers: (5) Hyperlipidemia Code(s): E78.5 - HYPERLIPIDEMIA, UNSPECIFIED Qualifiers: (6) Hypertension Code(s): I10 - ESSENTIAL (PRIMARY) HYPERTENSION Qualifiers:
--- NOTE | 2017-07-13 11:29 | HP ---
Admitting History and Physical - Primary Care Physician PCP: Priya Baugh - Admission Chief Complaint: Blood in spit History of Present Illness: 77 yrs old F obese H/O HTN, Chronic Afib on AC, COPD, remote H/o Bronchectasis , recovering from Pneumonia, yesterday noticed bright red color blood in spit copious amount without any induced trauma or coughing spell no c/o SOB, exudative expectoration or SOB, came to Ed for evaluation, hemodynamically stable, afebrile H/H at base line.Patient denies any chest pain, palpittaion, SOB, wt loss, night sweat or sick contact.In the ED all labs are at base line CXR no infiltrates Ct chest no PE opr acute infiltrates. 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 Cardiovascular: Yes: AFIB, HTN, Hyperlipdemia Pulmonary: Yes: COPD - Smoking History Smoking history: Former smoker Have you smoked in the past 12 months: No If you are a former smoker, when did you quit?: 1989 - Alcohol/Substance Use Hx Alcohol Use: No Home Medications - Allergies Allergies/Adverse Reactions: Allergies Allergy/AdvReac Type Severity Reaction Status Date / Time shellfish derived Allergy Verified 07/12/17 17:18 - Home Medications Home Medications: Ambulatory Orders Levothyroxine [Synthroid -] 75 mcg PO DAILY 06/11/11 Metoprolol Succinate [Toprol XL -] 50 mg PO DAILY 06/27/12 Cholecalciferol (Vitamin D3) [Vitamin D3] 32,000 unit PO DAILY 09/17/14 Albuterol Sulfate Inhaler - [Ventolin HFA Inhaler -] 1 puff IH DAILY 06/05/17 Atorvastatin Ca [Lipitor] 40 mg PO HS 06/05/17 Lisinopril/Hydrochlorothiazide [Zestoretic 10-12.5 mg Tablet] 1 each PO DAILY Rivaroxaban [Xarelto -] 20 mg PO DAILY 06/05/17 Tiotropium [place] [Spiriva] 1 inh IH DAILY 06/05/17 Family Disease History - Family Disease History Family History: Unremarkable Review of Systems - Review of Systems Constitutional: reports: Chills, Diaphoresis. denies: Fever, Lethargy HENT: denies: Difficult Swallowing, Ear Discharge, Ear Pain Neck: denies: Decreased ROM, Lumps, Pain on Movement Cardiovascular: reports: Palpitations. denies: Chest Pain, Edema Respiratory: reports: Hemoptysis. denies: Cough, Exercise Intolerance Gastrointestinal: denies: Abdominal Pain, Bloating, Constipation Genitourinary: denies: Burning, Discharge Musculoskeletal: reports: Back Pain, Crepitus Neurological: denies: Change in LOC, Change in Speech Endocrine: denies: Excessive Sweating, Flushing Hematology/Lymphatic: denies: Easily Bruised, Excessive Bleeding Physical Examination Vital Signs: Vital Signs Temperature 98.2 F 07/13/17 06:25 Pulse Rate 82 07/13/17 06:25 Respiratory Rate 18 07/13/17 06:25 Blood Pressure 134/99 07/13/17 06:25 O2 Sat by Pulse Oximetry (%) 94 L 07/13/17 06:25 Constitutional: Yes: Well Nourished, No Distress Eyes: Yes: Conjunctiva Clear, EOM Intact HENT: Yes: Atraumatic, Normocephalic Neck: Yes: Supple, Trachea Midline. No: Decreased ROM, Lymphadenopathy Cardiovascular: Yes: Pulse Irregular, S1, S2. No: Bruit, JVD Respiratory: Yes: Regular, CTA Bilaterally Gastrointestinal: Yes: Normal Bowel Sounds, Soft Extremities: No: Amputation, Calf Tenderness Edema: LLE: Trace, RLE: Trace Peripheral Pulses WNL: Yes Peripheral Pulses: Left Doralis Pedis: 1+, Right Dorsalis Pedis: 1+ Neurological: Yes: Alert, Oriented. No: Aphasia, Asterixis, Ataxia ...Motor Strength: WNL, LUE, RUE, RLE Labs: CBC, BMP 07/13/17 05:30 07/13/17 05:30 Imaging - Results X-ray: Report Reviewed (Normal) Cat Scan: Report Reviewed (Chest: NO PE, No acute changes) EKG: Report Reviewed (HR 83 Afib QTC 451 R wave axis 21 same as base line) Problem List - Problems (1) Hemoptysis Assessment/Plan: No Clear source denies any chest pain, cough or trauma, stopped CT chest no acute changes will F/U ENT to R/O upper airways bleeding hold AC over night Code(s): R04.2 - HEMOPTYSIS (2) COPD (chronic obstructive pulmonary disease) Assessment/Plan: Well controlled cont Bronchodilators and abx evaluated Pulmonary consult. Code(s): J44.9 - CHRONIC OBSTRUCTIVE PULMONARY DISEASE, UNSPECIFIED (3) Elevated troponin Assessment/Plan: No Chest Pain no EKG changes will F/U Cardiology input Code(s): R74.8 - ABNORMAL LEVELS OF OTHER SERUM ENZYMES (4) Afib Assessment/Plan: Rate controlled no actibve issue Code(s): I48.91 - UNSPECIFIED ATRIAL FIBRILLATION Qualifiers: Atrial fibrillation type: permanent Qualified Code(s): I48.2 - Chronic atrial fibrillation (5) Hyperlipidemia Assessment/Plan: Cont Statin Code(s): E78.5 - HYPERLIPIDEMIA, UNSPECIFIED Qualifiers: Hyperlipidemia type: pure hypercholesterolemia Qualified Code(s): E78.00 - Pure hypercholesterolemia, unspecified; E78.0 - Pure hypercholesterolemia (6) Hypertension Assessment/Plan: Well controlled cont all home meds Code(s): I10 - ESSENTIAL (PRIMARY) HYPERTENSION Qualifiers: Hypertension type: essential hypertension Qualified Code(s): I10 - Essential (primary) hypertension
--- NOTE | 2017-07-13 11:48 | CONS ---
DATE OF CONSULTATION: 07/13/2017 REFERRING PHYSICIAN: Regina Archer MD HISTORY OF PRESENT ILLNESS: The patient is a 77-year-old white female known to me from previous hospitalization with a past medical history of atrial fibrillation, COPD, hypertension, hyperlipidemia, history of brain stem CVA, hypothyroidism, history of tobacco use, quit 30 years ago, recently hospitalized at [facility] secondary to atrial fibrillation and COPD exacerbation and pneumonia. He was readmitted last night secondary to shortness of breath as well as hemoptysis. Patient states that she woke up at 2 a.m. prior to the evening of admission, went to the bathroom. She started spitting and noted bright red blood coming by tablespoons to the cup full. She denied any coughing at the time. She denied any chest pain, nausea, vomiting, or diaphoresis. She denied any fever or chills. She denied any recent local trauma to the mouth or gums. She went back to sleep and still noticed that she felt like she was gurgling. She then started a cough, again with bright red blood. She denied any fevers or chills. Apparently, patient went to an urgent care center and they said they saw possible pneumonia and recommended she go to ER. She initially denied taking their advice and she went home. The visiting nurse called me with the above complaints at which time she was again advised to go to the emergency room. In the ER, she had a CTA of the chest which revealed no evidence of infiltrates and/or effusions or pulmonary emboli. As she reports, she has history of smoking, quit many years ago. She denies any history of recent travel. She denies any history of DVT or PE in the past. She states that she gets shortness of breath with exertion. She denies any shortness of breath at rest. There is no previous history of hemoptysis. Currently, there is no history of occupational exposure to chemical fumes. Of note, she is also found on labs to have an elevated troponin level of 0.35. PAST MEDICAL HISTORY: Again includes history of brain stem CVA, atrial fibrillation on anticoagulation, COPD, pneumonia, hyperlipidemia, hypertension, COPD. REVIEW OF SYSTEMS: No orthopnea. Positive shortness of breath with exertion. No chest pain. No palpitations. Questionable hemoptysis. No abdominal pain. No lower extremity edema. CURRENT MEDICATIONS: Include vitamin D3, Prinivil, Spiriva, albuterol, Toprol, Lipitor, Protonix, hydrochlorothiazide, and Synthroid. PHYSICAL EXAMINATION: General: The patient is a well-developed and nourished female, awake, alert, in no acute distress. Vital signs: She is currently afebrile, blood pressure 134/99, respiratory rate 18, O2 saturation is 94%. HEENT: Head is normocephalic atraumatic. Neck: Supple. Heart: Irregular with S1, S2. Chest: Clear. Abdomen: Soft. Bowel sounds positive. Extremities: No cyanosis or edema. LABORATORIES: WBC is 6.9, hemoglobin 13.7, hematocrit 40.8, platelet count of 249,000. INR is 1.63. BUN 15, creatinine 0.7. Troponin is 0.33. Chest CT no infiltrates, no effusions, or chronic lung disease. There is mild bibasilar atelectasis. IMPRESSION: 1. Hemoptysis possibly secondary to bronchitis. 2. Possible upper airway. 3. Chronic obstructive pulmonary disease. 4. Atrial fibrillation. 5. Positive troponins. 6. Hypertension. PLAN: Inhaled bronchodilators to quantify hemoptysis, continue anticoagulation, ENT evaluation, p.o. antibiotics, troponins, cardiology evaluation. JOSE EUGENE M.D. [facility]SHAL/[id number]
--- NOTE | 2017-07-13 11:55 | CON.CARD ---
Consult Consult Specialty:: Cardiology Referred by:: Hospitalist Reason for Consultation:: Cardiac evaluation - History of Present Illness Chief Complaint: Hemoptysis History of Present Illness: Patient is a 77 year old female with underlying history of HTN, hypercholesterolemia, COPD, atrial fibrillation on NOAC (Xarelto), history of CVA who was admitted with cough and possible hemoptysis suggestive of bronchitis. She denies chest pain. She complains of intermittent palpitations and shortness of breath. She denies fever or chills. She denies nausea, vomiting , diarrhea or abdominal pain. She denies headache or lightheadedness. CTA was negative for PTE. 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 Cardio/Vascular: Yes: AFIB, HTN, Hyperlipdemia Pulmonary: Yes: COPD - Alcohol/Substance Use Hx Alcohol Use: No - Smoking History Smoking history: Former smoker Have you smoked in the past 12 months: No If you are a former smoker, when did you quit?: 1989 Home Medications - Allergies Allergies/Adverse Reactions: Allergies Allergy/AdvReac Type Severity Reaction Status Date / Time shellfish derived Allergy Verified 07/12/17 17:18 - Home Medications Home Medications: Ambulatory Orders Levothyroxine [Synthroid -] 75 mcg PO DAILY 06/11/11 Metoprolol Succinate [Toprol XL -] 50 mg PO DAILY 06/27/12 Cholecalciferol (Vitamin D3) [Vitamin D3] 32,000 unit PO DAILY 09/17/14 Albuterol Sulfate Inhaler - [Ventolin HFA Inhaler -] 1 puff IH DAILY 06/05/17 Atorvastatin Ca [Lipitor] 40 mg PO HS 06/05/17 Lisinopril/Hydrochlorothiazide [Zestoretic 10-12.5 mg Tablet] 1 each PO DAILY Rivaroxaban [Xarelto -] 20 mg PO DAILY 06/05/17 Tiotropium [place] [Spiriva] 1 inh IH DAILY 06/05/17 Review of Systems - Review of Systems Constitutional: denies: Chills, Fever Cardiovascular: reports: Palpitations, Shortness of Breath. denies: Chest Pain Respiratory: reports: Cough, Hemoptysis, SOB. denies: Orthopnea, PND Gastrointestinal: denies: Abdominal Pain, Constipation, Diarrhea, Melena, Nausea , Rectal Bleeding, Vomiting Musculoskeletal: denies: Joint Pain Neurological: denies: Dizziness, Headache, Seizure, Syncope Vital Signs: Vital Signs Temperature 98.2 F 07/13/17 06:25 Pulse Rate 82 07/13/17 06:25 Respiratory Rate 18 07/13/17 06:25 Blood Pressure 134/99 07/13/17 06:25 O2 Sat by Pulse Oximetry (%) 94 L 07/13/17 06:25 Eyes: Yes: PERRL HENT: Yes: Atraumatic Neck: Yes: Supple Respiratory: Yes: Diminished Gastrointestinal: Yes: Normal Bowel Sounds, Soft, Abdomen, Obese. No: Tenderness Cardiovascular: Yes: Pulse Irregular JVD: No Carotid Bruit: No PMI: Non-Displaced Heart Sounds: Yes: S1, S2 Edema: No - Other Data Labs, Other Data: CBC, BMP 07/13/17 05:30 07/13/17 05:30 INR, PTT INR 1.63 (0.82-1.09) H D 07/13/17 05:30 Troponin, BNP 07/12/17 07/13/17 18:14 05:30 Troponin I 0.35 H 0.33 H Laboratory Results - last 24 hr 07/12/17 07/12/17 07/12/17 18:14 18:14 18:14 WBC 7.5 D RBC 4.49 Hgb 13.6 Hct 40.9 MCV 91.1 MCH 30.3 MCHC 33.3 RDW 15.1 Plt Count 304 D MPV 8.7 Neutrophils % 64.2 D Lymphocytes % 25.1 D Monocytes % 8.3 D Eosinophils % 1.5 D Basophils % 0.9 D Nucleated RBC % 0 PT with INR 27.70 H INR 2.45 H D PTT (Actin FS) 40.5 H Sodium 140 Potassium 3.7 Chloride 106 Carbon Dioxide 27 Anion Gap 7 L BUN 15 Creatinine 0.8 Creat Clearance w eGFR > 60 Random Glucose 99 Calcium 8.9 Total Bilirubin 1.7 H D AST 16 ALT 24 Alkaline Phosphatase 72 Creatine Kinase 62 Troponin I 0.35 H Total Protein 7.2 Albumin 3.7 Blood Type Antibody Screen 07/12/17 07/13/17 07/13/17 18:14 05:30 05:30 WBC 6.9 RBC 4.47 Hgb 13.7 Hct 40.8 MCV 91.1 MCH 30.6 MCHC 33.6 RDW 15.3 Plt Count 249 MPV 8.8 Neutrophils % 56.4 Lymphocytes % 33.4 D Monocytes % 8.2 Eosinophils % 1.3 Basophils % 0.7 Nucleated RBC % 0 PT with INR 18.40 H INR 1.63 H D PTT (Actin FS) Sodium Potassium Chloride Carbon Dioxide Anion Gap BUN Creatinine Creat Clearance w eGFR Random Glucose Calcium Total Bilirubin AST ALT Alkaline Phosphatase Creatine Kinase Troponin I Total Protein Albumin Blood Type AB POSITIVE Antibody Screen Negative 07/13/17 05:30 WBC RBC Hgb Hct MCV MCH MCHC RDW Plt Count MPV Neutrophils % Lymphocytes % Monocytes % Eosinophils % Basophils % Nucleated RBC % PT with INR INR PTT (Actin FS) Sodium 142 Potassium 3.7 Chloride 106 Carbon Dioxide 28 Anion Gap 8 BUN 15 Creatinine 0.7 Creat Clearance w eGFR Random Glucose 115 H Calcium 9.3 Total Bilirubin AST ALT Alkaline Phosphatase Creatine Kinase 58 Troponin I 0.33 H Total Protein Albumin Blood Type Antibody Screen Atrial fibrillation Imaging - Results Chest X-ray: Report Reviewed (Atelectasis) Cat Scan: Report Reviewed (Chest CTA: No PTE) EKG: Report Reviewed Problem List - Problems (1) COPD (chronic obstructive pulmonary disease) Code(s): J44.9 - CHRONIC OBSTRUCTIVE PULMONARY DISEASE, UNSPECIFIED (2) Elevated troponin Code(s): R74.8 - ABNORMAL LEVELS OF OTHER SERUM ENZYMES (3) Hemoptysis Code(s): R04.2 - HEMOPTYSIS (4) Afib Code(s): I48.91 - UNSPECIFIED ATRIAL FIBRILLATION Qualifiers: Atrial fibrillation type: permanent Qualified Code(s): I48.2 - Chronic atrial fibrillation (5) COPD with acute exacerbation Code(s): J44.1 - CHRONIC OBSTRUCTIVE PULMONARY DISEASE W (ACUTE) EXACERBATION (6) Demand ischemia Code(s): I24.8 - OTHER FORMS OF ACUTE ISCHEMIC HEART DISEASE (7) Hyperlipidemia Code(s): E78.5 - HYPERLIPIDEMIA, UNSPECIFIED Qualifiers: Hyperlipidemia type: pure hypercholesterolemia (8) Hypertension Code(s): I10 - ESSENTIAL (PRIMARY) HYPERTENSION Qualifiers: Hypertension type: essential hypertension Assessment/Plan 1. Hemoptysis suggests bronchitis, no PTE 2. Elevated troponin suggests demand ischemia 3. COPD exacerbation 4. History of pneumonia 5. Persistent AF on NOAC' 6. HTN 7. Hypercholesterolemia 8. History of CVA 9. Hypothyroidism PLAN: 1. Resume Xarelto if not contraindicated 2. Continue Metoprolol and Lisinopril as tolerated 3. Continue Lipitor 4. HCTZ 5. Bronchodilators and further treatments as per pulmonary recommendation 6. Trend troponin Further plans are to follow Osman Borja MD
[2017-07-13] MEDS ORDERED: RIVAROXABAN 20 MG TABLET PO SCH (14:15)
[2017-07-13 15:22] VITALS: BMI 35.5
[2017-07-14] MEDS: LEVOTHYROXINE NA 75 MCG TABLET (FP) PO SCH (06:28)
[2017-07-14] MEDS: PANTOPRAZOLE 40 MG TABLET (FP) PO SCH (09:38)
[2017-07-14] MEDS: LISINOPRIL 10 MG TABLET (FP) PO SCH (09:44)
[2017-07-14] MEDS: TIOTROPIUM BROMIDE 18 MCG CAPSULES IH SCH (09:44)
[2017-07-14] MEDS: HYDROCHLOROTHIAZIDE 12.5 MG CAPSULE (FP) PO SCH (09:44)
--- NOTE | 2017-07-14 10:01 | PN ---
Progress Note, Physician History of Present Illness: pulmonary alert,feeling better,-hemoptysis,-sob - Current Medication List Current Medications: Active Medications Albuterol Sulfate (Ventolin Hfa Inhaler -) 1 puff IH Q6H PRN PRN Reason: ASTHMA Last Admin: 07/13/17 06:49 Dose: 18 inh Atorvastatin Calcium (Lipitor -) 40 mg PO HS [facility] Last Admin: 07/13/17 21:29 Dose: 40 mg Hydrochlorothiazide (Hctz -) 12.5 mg PO DAILY [facility] Last Admin: 07/14/17 09:44 Dose: 12.5 mg Levofloxacin (Levaquin 500 Mg Premixed Ivpb -) 500 mg in 100 mls @ 100 mls/hr IVPB DAILY [facility]; Protocol Levothyroxine Sodium (Synthroid -) 75 mcg PO DAILY@0700 [facility] Last Admin: 07/14/17 06:28 Dose: 75 mcg Lisinopril (Prinivil) 10 mg PO DAILY [facility] Last Admin: 07/14/17 09:44 Dose: 10 mg Metoprolol Succinate (Toprol Xl -) 50 mg PO DAILY [facility] Last Admin: 07/14/17 09:44 Dose: 50 mg Non-Formulary Medication (Cholecalciferol (Vitamin D3) [Vitamin D3]) 32,000 unit PO DAILY [facility] Pantoprazole Sodium (Protonix -) 40 mg PO DAILY [facility] Last Admin: 07/14/17 09:38 Dose: 40 mg Tiotropium [place] (Spiriva -) 1 puff IH DAILY [facility] Last Admin: 07/14/17 09:44 Dose: 1 inh - Objective Vital Signs: Vital Signs Temperature 97.7 F 07/14/17 06:00 Pulse Rate 73 07/14/17 06:00 Respiratory Rate 20 07/14/17 06:00 Blood Pressure 130/65 07/14/17 06:00 O2 Sat by Pulse Oximetry (%) 95 07/13/17 21:00 Constitutional: Yes: Well Nourished, Calm Eyes: Yes: WNL HENT: Yes: WNL Neck: Yes: WNL Cardiovascular: Yes: Pulse Irregular, S1, S2 Respiratory: Yes: CTA Bilaterally Gastrointestinal: Yes: Normal Bowel Sounds, Soft Extremities: Yes: WNL Edema: No Labs: Problem List - Problems (1) COPD (chronic obstructive pulmonary disease) Code(s): J44.9 - CHRONIC OBSTRUCTIVE PULMONARY DISEASE, UNSPECIFIED (2) Elevated troponin Code(s): R74.8 - ABNORMAL LEVELS OF OTHER SERUM ENZYMES (3) Hemoptysis Code(s): R04.2 - HEMOPTYSIS (4) Afib Code(s): I48.91 - UNSPECIFIED ATRIAL FIBRILLATION Qualifiers: Atrial fibrillation type: permanent Qualified Code(s): I48.2 - Chronic atrial fibrillation (5) Hyperlipidemia Code(s): E78.5 - HYPERLIPIDEMIA, UNSPECIFIED Qualifiers: Hyperlipidemia type: pure hypercholesterolemia Qualified Code(s): E78.00 - Pure hypercholesterolemia, unspecified; E78.0 - Pure hypercholesterolemia (6) Hypertension Code(s): I10 - ESSENTIAL (PRIMARY) HYPERTENSION Qualifiers: Hypertension type: essential hypertension Qualified Code(s): I10 - Essential (primary) hypertension Assessment/Plan IMP HEMOPTYSIS RESOLVED BRONCHITIS DYSPNEA COPD + TROPONINS AFIB H/O CVA HTN HLD PLAN QUANTIFY HEMOPTYSIS TREND TROPONINS INHALED BRONCHODILATORS ABX CARDIOLOGY EVALUATION ENT EVALUATION PENDING MONITORT CRYS EUGENE Problem List - Problems (1) COPD (chronic obstructive pulmonary disease) Code(s): J44.9 - CHRONIC OBSTRUCTIVE PULMONARY DISEASE, UNSPECIFIED (2) Elevated troponin Code(s): R74.8 - ABNORMAL LEVELS OF OTHER SERUM ENZYMES (3) Hemoptysis Code(s): R04.2 - HEMOPTYSIS (4) Afib Code(s): I48.91 - UNSPECIFIED ATRIAL FIBRILLATION Qualifiers: (5) Hyperlipidemia Code(s): E78.5 - HYPERLIPIDEMIA, UNSPECIFIED Qualifiers: (6) Hypertension Code(s): I10 - ESSENTIAL (PRIMARY) HYPERTENSION Qualifiers:
--- NOTE | 2017-07-14 10:42 | PN ---
Progress Note, Physician Chief Complaint: Not in distress History of Present Illness: Patient was seen and examined. Awake and alert. Chart was reviewed Denies chest pain, SOB or palpitations No hemoptysis - Current Medication List Current Medications: Active Medications Albuterol Sulfate (Ventolin Hfa Inhaler -) 1 puff IH Q6H PRN PRN Reason: ASTHMA Last Admin: 07/13/17 06:49 Dose: 18 inh Atorvastatin Calcium (Lipitor -) 40 mg PO HS [facility] Last Admin: 07/13/17 21:29 Dose: 40 mg Hydrochlorothiazide (Hctz -) 12.5 mg PO DAILY [facility] Last Admin: 07/14/17 09:44 Dose: 12.5 mg Levofloxacin (Levaquin 500 Mg Premixed Ivpb -) 500 mg in 100 mls @ 100 mls/hr IVPB DAILY [facility]; Protocol Levothyroxine Sodium (Synthroid -) 75 mcg PO DAILY@0700 [facility] Last Admin: 07/14/17 06:28 Dose: 75 mcg Lisinopril (Prinivil) 10 mg PO DAILY [facility] Last Admin: 07/14/17 09:44 Dose: 10 mg Metoprolol Succinate (Toprol Xl -) 50 mg PO DAILY [facility] Last Admin: 07/14/17 09:44 Dose: 50 mg Non-Formulary Medication (Cholecalciferol (Vitamin D3) [Vitamin D3]) 32,000 unit PO DAILY [facility] Pantoprazole Sodium (Protonix -) 40 mg PO DAILY [facility] Last Admin: 07/14/17 09:38 Dose: 40 mg Rivaroxaban (Xarelto -) 20 mg PO DAILY@0800 [facility] Tiotropium [place] (Spiriva -) 1 puff IH DAILY [facility] Last Admin: 07/14/17 09:44 Dose: 1 inh - Objective Vital Signs: Vital Signs Temperature 97.7 F 07/14/17 06:00 Pulse Rate 73 07/14/17 06:00 Respiratory Rate 20 07/14/17 06:00 Blood Pressure 130/65 07/14/17 06:00 O2 Sat by Pulse Oximetry (%) 95 07/13/17 21:00 Constitutional: Yes: Well Nourished HENT: Yes: Atraumatic Neck: Yes: Supple Cardiovascular: Yes: Pulse Irregular, S1, S2 Respiratory: Yes: CTA Bilaterally Gastrointestinal: Yes: Normal Bowel Sounds, Soft. No: Tenderness Edema: No Additional Findings/Remarks: - Review of Systems Constitutional: denies: Chills, Fever Cardiovascular: reports: Palpitations, Shortness of Breath. denies: Chest Pain Respiratory: reports: Cough, Hemoptysis, SOB. denies: Orthopnea, PND Gastrointestinal: denies: Abdominal Pain, Constipation, Diarrhea, Melena, Nausea , Rectal Bleeding, Vomiting Musculoskeletal: denies: Joint Pain Neurological: denies: Dizziness, Headache, Seizure, Syncope Labs: CBC, BMP 07/13/17 05:30 07/13/17 05:30 INR, PTT INR 1.63 (0.82-1.09) H D 07/13/17 05:30 Problem List - Problems (1) COPD (chronic obstructive pulmonary disease) Code(s): J44.9 - CHRONIC OBSTRUCTIVE PULMONARY DISEASE, UNSPECIFIED Qualifiers: COPD type: unspecified COPD Qualified Code(s): J44.9 - Chronic obstructive pulmonary disease, unspecified (2) Elevated troponin Code(s): R74.8 - ABNORMAL LEVELS OF OTHER SERUM ENZYMES (3) Hemoptysis Code(s): R04.2 - HEMOPTYSIS (4) Afib Code(s): I48.91 - UNSPECIFIED ATRIAL FIBRILLATION Qualifiers: Atrial fibrillation type: permanent Qualified Code(s): I48.2 - Chronic atrial fibrillation (5) COPD with acute exacerbation Code(s): J44.1 - CHRONIC OBSTRUCTIVE PULMONARY DISEASE W (ACUTE) EXACERBATION (6) Demand ischemia Code(s): I24.8 - OTHER FORMS OF ACUTE ISCHEMIC HEART DISEASE (7) Hyperlipidemia Code(s): E78.5 - HYPERLIPIDEMIA, UNSPECIFIED Qualifiers: Hyperlipidemia type: pure hypercholesterolemia Qualified Code(s): E78.00 - Pure hypercholesterolemia, unspecified; E78.0 - Pure hypercholesterolemia (8) Hypertension Code(s): I10 - ESSENTIAL (PRIMARY) HYPERTENSION Qualifiers: Hypertension type: essential hypertension Qualified Code(s): I10 - Essential (primary) hypertension Assessment/Plan 1. Hemoptysis suggests bronchitis, no PTE 2. Elevated troponin suggests demand ischemia 3. COPD exacerbation 4. History of pneumonia 5. Persistent AF on NOAC 6. HTN 7. Hypercholesterolemia 8. History of CVA 9. Hypothyroidism PLAN: 1. Resume Xarelto as she does not have hemotysis 2. Continue Metoprolol and Lisinopril as tolerated 3. Continue Lipitor 4. HCTZ 5. Bronchodilators and further treatments as per pulmonary recommendation 6. Trend troponin - last troponin 0.34 Further plans are to follow Osman Borja MD
--- NOTE | 2017-07-14 10:51 | PN ---
Progress Note, Physician - Current Medication List Current Medications: Active Medications Albuterol Sulfate (Ventolin Hfa Inhaler -) 1 puff IH Q6H PRN PRN Reason: ASTHMA Last Admin: 07/13/17 06:49 Dose: 18 inh Atorvastatin Calcium (Lipitor -) 40 mg PO HS [facility] Last Admin: 07/13/17 21:29 Dose: 40 mg Hydrochlorothiazide (Hctz -) 12.5 mg PO DAILY [facility] Last Admin: 07/14/17 09:44 Dose: 12.5 mg Levofloxacin (Levaquin 500 Mg Premixed Ivpb -) 500 mg in 100 mls @ 100 mls/hr IVPB DAILY [facility]; Protocol Levothyroxine Sodium (Synthroid -) 75 mcg PO DAILY@0700 [facility] Last Admin: 07/14/17 06:28 Dose: 75 mcg Lisinopril (Prinivil) 10 mg PO DAILY [facility] Last Admin: 07/14/17 09:44 Dose: 10 mg Metoprolol Succinate (Toprol Xl -) 50 mg PO DAILY [facility] Last Admin: 07/14/17 09:44 Dose: 50 mg Non-Formulary Medication (Cholecalciferol (Vitamin D3) [Vitamin D3]) 32,000 unit PO DAILY [facility] Pantoprazole Sodium (Protonix -) 40 mg PO DAILY [facility] Last Admin: 07/14/17 09:38 Dose: 40 mg Rivaroxaban (Xarelto -) 20 mg PO DAILY@0800 [facility] Tiotropium [place] (Spiriva -) 1 puff IH DAILY [facility] Last Admin: 07/14/17 09:44 Dose: 1 inh - Objective Vital Signs: Vital Signs Temperature 97.7 F 07/14/17 06:00 Pulse Rate 73 07/14/17 06:00 Respiratory Rate 20 07/14/17 06:00 Blood Pressure 130/65 07/14/17 06:00 O2 Sat by Pulse Oximetry (%) 95 07/13/17 21:00 Constitutional: Well Nourished, No Distress HEENT: Atraumatic, Normocephalic, Conjunctiva Clear, EOM Intact Neck: Supple, Trachea Midline. No: Decreased ROM, Lymphadenopathy Cardiovascular: Pulse Irregular, S1, S2. No: Bruit, JVD Respiratory: Regular, CTA Bilaterally Gastrointestinal: Yes: Normal Bowel Sounds, Soft Extremities: No: Amputation, Calf Tendernes no Edema LLE: Trace, RLE: Trace Pulses + Neurological: Alert, Oriented. No: Aphasia, Asterixis, Ataxia, motor WNL, LUE , RUE, RLE Labs: CBC, BMP 07/13/17 05:30 07/13/17 05:30 INR, PTT INR 1.63 (0.82-1.09) H D 07/13/17 05:30 Problem List - Problems (1) Hemoptysis Assessment/Plan: No Clear sourse denies any chest pain, cough or trauma, stopped CT chest no acute changes will F/U ENT to R/O upper airways bleeding resume AC Code(s): R04.2 - HEMOPTYSIS (2) COPD (chronic obstructive pulmonary disease) Assessment/Plan: Well controlled cont Bronchodilators and abx evaluated Pulmonary consult. Code(s): J44.9 - CHRONIC OBSTRUCTIVE PULMONARY DISEASE, UNSPECIFIED (3) Elevated troponin Assessment/Plan: No Chest Pian no EKG chnages will F/U Cardiology input Code(s): R74.8 - ABNORMAL LEVELS OF OTHER SERUM ENZYMES (4) Afib Assessment/Plan: Rate controlled no actibve issue Code(s): I48.91 - UNSPECIFIED ATRIAL FIBRILLATION Qualifiers: Atrial fibrillation type: permanent Qualified Code(s): I48.2 - Chronic atrial fibrillation (5) Hyperlipidemia Code(s): E78.5 - HYPERLIPIDEMIA, UNSPECIFIED Qualifiers: Hyperlipidemia type: pure hypercholesterolemia Qualified Code(s): E78.00 - Pure hypercholesterolemia, unspecified; E78.0 - Pure hypercholesterolemia (6) Hypertension Assessment/Plan: Well controlled cont all home meds Code(s): I10 - ESSENTIAL (PRIMARY) HYPERTENSION Qualifiers: Hypertension type: essential hypertension Qualified Code(s): I10 - Essential (primary) hypertension
[2017-07-14] MEDS: RIVAROXABAN 20 MG TABLET PO SCH (11:22)
[2017-07-14] MEDS: ATORVASTATIN CA 40 MG TABLET (FP) PO SCH (21:36)
--- NOTE | 2017-07-14 22:23 | EKG ---
Test Reason : Blood Pressure : / mmHG Vent. Rate : 083 BPM Atrial Rate : 076 BPM P-R Int : 000 ms QRS Dur : 088 ms QT Int : 384 ms P-R-T Axes : 000 -24 -27 degrees QTc Int : 451 ms ATRIAL FIBRILLATION ABNORMAL ECG WHEN COMPARED WITH ECG OF 06-JUN-2017 10:24, QT HAS LENGTHENED Confirmed by CALLIE WADDELL MD ([id number]) on 07/14/2017 10:23:16 PM Referred By: Confirmed By:CALLIE WADDELL MD
[2017-07-15] MEDS: LEVOTHYROXINE NA 75 MCG TABLET (FP) PO SCH (06:24)
[2017-07-15] MEDS ORDERED: PT OWN MED DRAWER 7, Y5N ONE (08:45)
[2017-07-15] MEDS: RIVAROXABAN 20 MG TABLET PO SCH (08:46)
--- NOTE | 2017-07-15 10:10 | PN ---
Progress Note, Physician Chief Complaint: Not in distress History of Present Illness: Patient was seen and examined. Awake and alert. Chart was reviewed Denies chest pain, SOB or palpitations No hemoptysis - Current Medication List Current Medications: Active Medications Albuterol Sulfate (Ventolin Hfa Inhaler -) 1 puff IH Q6H PRN PRN Reason: ASTHMA Last Admin: 07/13/17 06:49 Dose: 18 inh Atorvastatin Calcium (Lipitor -) 40 mg PO HS [facility] Last Admin: 07/14/17 21:36 Dose: 40 mg Hydrochlorothiazide (Hctz -) 12.5 mg PO DAILY [facility] Last Admin: 07/14/17 09:44 Dose: 12.5 mg Levofloxacin (Levaquin 500 Mg Premixed Ivpb -) 500 mg in 100 mls @ 100 mls/hr IVPB DAILY [facility]; Protocol Last Admin: 07/14/17 11:04 Dose: 100 mls/hr Levothyroxine Sodium (Synthroid -) 75 mcg PO DAILY@0700 [facility] Last Admin: 07/15/17 06:24 Dose: 75 mcg Lisinopril (Prinivil) 10 mg PO DAILY [facility] Last Admin: 07/14/17 09:44 Dose: 10 mg Metoprolol Succinate (Toprol Xl -) 50 mg PO DAILY [facility] Last Admin: 07/14/17 09:44 Dose: 50 mg Non-Formulary Medication (Cholecalciferol (Vitamin D3) [Vitamin D3]) 32,000 unit PO DAILY [facility] Pantoprazole Sodium (Protonix -) 40 mg PO DAILY [facility] Last Admin: 07/14/17 09:38 Dose: 40 mg Rivaroxaban (Xarelto -) 20 mg PO DAILY@0800 [facility] Last Admin: 07/15/17 08:46 Dose: 20 mg Tiotropium [place] (Spiriva -) 1 puff IH DAILY [facility] Last Admin: 07/14/17 09:44 Dose: 1 inh - Objective Vital Signs: Vital Signs Temperature 97.9 F 07/15/17 06:00 Pulse Rate 84 07/15/17 06:00 Respiratory Rate 20 07/15/17 06:00 Blood Pressure 134/73 07/15/17 06:00 O2 Sat by Pulse Oximetry (%) 94 L 07/15/17 04:00 Constitutional: Yes: Well Nourished Eyes: Yes: PERRL HENT: Yes: Atraumatic Neck: Yes: Supple Cardiovascular: Yes: Pulse Irregular, S1, S2 Respiratory: Yes: CTA Bilaterally Gastrointestinal: Yes: Normal Bowel Sounds, Soft. No: Tenderness Edema: No Additional Findings/Remarks: - Review of Systems Constitutional: denies: Chills, Fever Cardiovascular: reports: Palpitations, Shortness of Breath. denies: Chest Pain Respiratory: reports: Cough, Hemoptysis, SOB. denies: Orthopnea, PND Gastrointestinal: denies: Abdominal Pain, Constipation, Diarrhea, Melena, Nausea , Rectal Bleeding, Vomiting Musculoskeletal: denies: Joint Pain Neurological: denies: Dizziness, Headache, Seizure, Syncope Labs: CBC, BMP 07/13/17 05:30 07/13/17 05:30 INR, PTT INR 1.63 (0.82-1.09) H D 07/13/17 05:30 Problem List - Problems (1) COPD (chronic obstructive pulmonary disease) Code(s): J44.9 - CHRONIC OBSTRUCTIVE PULMONARY DISEASE, UNSPECIFIED Qualifiers: COPD type: unspecified COPD Qualified Code(s): J44.9 - Chronic obstructive pulmonary disease, unspecified (2) Elevated troponin Code(s): R74.8 - ABNORMAL LEVELS OF OTHER SERUM ENZYMES (3) Hemoptysis Code(s): R04.2 - HEMOPTYSIS (4) Afib Code(s): I48.91 - UNSPECIFIED ATRIAL FIBRILLATION Qualifiers: Atrial fibrillation type: permanent Qualified Code(s): I48.2 - Chronic atrial fibrillation (5) COPD with acute exacerbation Code(s): J44.1 - CHRONIC OBSTRUCTIVE PULMONARY DISEASE W (ACUTE) EXACERBATION (6) Demand ischemia Code(s): I24.8 - OTHER FORMS OF ACUTE ISCHEMIC HEART DISEASE (7) Hyperlipidemia Code(s): E78.5 - HYPERLIPIDEMIA, UNSPECIFIED Qualifiers: Hyperlipidemia type: pure hypercholesterolemia Qualified Code(s): E78.00 - Pure hypercholesterolemia, unspecified; E78.0 - Pure hypercholesterolemia (8) Hypertension Code(s): I10 - ESSENTIAL (PRIMARY) HYPERTENSION Qualifiers: Hypertension type: essential hypertension Qualified Code(s): I10 - Essential (primary) hypertension Assessment/Plan 1. Hemoptysis suggests bronchitis, no PTE 2. Elevated troponin suggests demand ischemia 3. COPD exacerbation 4. History of pneumonia 5. Persistent AF on NOAC 6. HTN 7. Hypercholesterolemia 8. History of CVA 9. Hypothyroidism PLAN: 1. Continue Xarelto as she does not have hemotysis 2. Continue Metoprolol and Lisinopril as tolerated 3. Continue Lipitor 4. HCTZ 5. Bronchodilators and further treatments as per pulmonary recommendation 6. Discharge planning Further plans are to follow. Patient was seen, examined, counseled, instructions given for outpatient follow up and chart reviewed for total of 35 min Osman Borja MD
[2017-07-15] MEDS: HYDROCHLOROTHIAZIDE 12.5 MG CAPSULE (FP) PO SCH (10:20)
[2017-07-15] MEDS: LISINOPRIL 10 MG TABLET (FP) PO SCH (10:20)
[2017-07-15] MEDS: PANTOPRAZOLE 40 MG TABLET (FP) PO SCH (10:20)
[2017-07-15] MEDS: TIOTROPIUM BROMIDE 18 MCG CAPSULES IH SCH (10:20)
--- NOTE | 2017-07-15 10:59 | PN ---
Progress Note, Physician History of Present Illness: pulmonary alert,nad,-sob,-cp,-hemoptysis.pt refused ent evaluation - Current Medication List Current Medications: Active Medications Albuterol Sulfate (Ventolin Hfa Inhaler -) 1 puff IH Q6H PRN PRN Reason: ASTHMA Last Admin: 07/13/17 06:49 Dose: 18 inh Atorvastatin Calcium (Lipitor -) 40 mg PO HS [facility] Last Admin: 07/14/17 21:36 Dose: 40 mg Hydrochlorothiazide (Hctz -) 12.5 mg PO DAILY [facility] Last Admin: 07/15/17 10:20 Dose: 12.5 mg Levofloxacin (Levaquin 500 Mg Premixed Ivpb -) 500 mg in 100 mls @ 100 mls/hr IVPB DAILY [facility]; Protocol Last Admin: 07/15/17 10:20 Dose: 100 mls/hr Levothyroxine Sodium (Synthroid -) 75 mcg PO DAILY@0700 [facility] Last Admin: 07/15/17 06:24 Dose: 75 mcg Lisinopril (Prinivil) 10 mg PO DAILY [facility] Last Admin: 07/15/17 10:20 Dose: 10 mg Metoprolol Succinate (Toprol Xl -) 50 mg PO DAILY [facility] Last Admin: 07/15/17 10:20 Dose: 50 mg Non-Formulary Medication (Cholecalciferol (Vitamin D3) [Vitamin D3]) 32,000 unit PO DAILY [facility] Pantoprazole Sodium (Protonix -) 40 mg PO DAILY [facility] Last Admin: 07/15/17 10:20 Dose: 40 mg Rivaroxaban (Xarelto -) 20 mg PO DAILY@0800 [facility] Last Admin: 07/15/17 08:46 Dose: 20 mg Tiotropium [place] (Spiriva -) 1 puff IH DAILY [facility] Last Admin: 07/15/17 10:20 Dose: 1 inh - Objective Vital Signs: Vital Signs Temperature 97.9 F 07/15/17 06:00 Pulse Rate 84 07/15/17 06:00 Respiratory Rate 20 07/15/17 06:00 Blood Pressure 134/73 07/15/17 06:00 O2 Sat by Pulse Oximetry (%) 94 L 07/15/17 04:00 Constitutional: Yes: Well Nourished, Calm Eyes: Yes: WNL HENT: Yes: WNL Neck: Yes: WNL Cardiovascular: Yes: Pulse Irregular, S1, S2 Respiratory: Yes: Diminished Gastrointestinal: Yes: Normal Bowel Sounds, Soft Extremities: Yes: WNL Edema: No Labs: CBC, BMP Problem List - Problems (1) COPD (chronic obstructive pulmonary disease) Code(s): J44.9 - CHRONIC OBSTRUCTIVE PULMONARY DISEASE, UNSPECIFIED Qualifiers: COPD type: unspecified COPD Qualified Code(s): J44.9 - Chronic obstructive pulmonary disease, unspecified (2) Elevated troponin Code(s): R74.8 - ABNORMAL LEVELS OF OTHER SERUM ENZYMES (3) Hemoptysis Code(s): R04.2 - HEMOPTYSIS (4) Afib Code(s): I48.91 - UNSPECIFIED ATRIAL FIBRILLATION Qualifiers: Atrial fibrillation type: permanent Qualified Code(s): I48.2 - Chronic atrial fibrillation (5) Hyperlipidemia Code(s): E78.5 - HYPERLIPIDEMIA, UNSPECIFIED Qualifiers: Hyperlipidemia type: pure hypercholesterolemia Qualified Code(s): E78.00 - Pure hypercholesterolemia, unspecified; E78.0 - Pure hypercholesterolemia (6) Hypertension Code(s): I10 - ESSENTIAL (PRIMARY) HYPERTENSION Qualifiers: Hypertension type: essential hypertension Qualified Code(s): I10 - Essential (primary) hypertension Assessment/Plan IMP HEMOPTYSIS RESOLVED / BRONCHITIS DYSPNEA COPD + TROPONINS AFIB H/O CVA HTN HLD PLAN INHALED BRONCHODILATORS PO ABX CARDIOLOGY EVALUATION ENT EVALUATION OUTPATIENT AC DR EUGENE Problem List - Problems (1) COPD (chronic obstructive pulmonary disease) Code(s): J44.9 - CHRONIC OBSTRUCTIVE PULMONARY DISEASE, UNSPECIFIED (2) Elevated troponin Code(s): R74.8 - ABNORMAL LEVELS OF OTHER SERUM ENZYMES (3) Hemoptysis Code(s): R04.2 - HEMOPTYSIS (4) Afib Code(s): I48.91 - UNSPECIFIED ATRIAL FIBRILLATION Qualifiers: (5) Hyperlipidemia Code(s): E78.5 - HYPERLIPIDEMIA, UNSPECIFIED Qualifiers: (6) Hypertension Code(s): I10 - ESSENTIAL (PRIMARY) HYPERTENSION Qualifiers:
--- NOTE | 2017-07-15 10:59 | DS ---
Physical Examination Vital Signs: Vital Signs Temperature 97.9 F 07/15/17 06:00 Pulse Rate 84 07/15/17 06:00 Respiratory Rate 20 07/15/17 06:00 Blood Pressure 134/73 07/15/17 06:00 O2 Sat by Pulse Oximetry (%) 94 L 07/15/17 04:00 Constitutional: Yes: Well Nourished, No Distress Cardiovascular: Yes: Pulse Irregular Respiratory: Yes: WNL, Regular, CTA Bilaterally, Diminished Gastrointestinal: Yes: WNL, Normal Bowel Sounds Extremities: Yes: WNL Edema: No Neurological: Yes: WNL, Alert, Oriented Psychiatric: Yes: WNL, Alert, Oriented Labs: CBC, BMP 07/13/17 05:30 07/13/17 05:30 Discharge Summary Reason For Visit: HEMOPTYSIS,ELEVATED TROPONIN LEVEL Current Active Problems COPD (chronic obstructive pulmonary disease) (Acute) Elevated troponin (Acute) Hemoptysis (Acute) Hospital Course: is a 77 year old female admitted for eval of hemoptysis on AC, positive troponins. She has been evaluated by cardiology and pulm and cleared for d/c. ENT evaluated her this am and pt refused laryngoscopy and prefers to do the procedure outpt. Otherwise, she has been clinically doing well, without further hemoptysis, changes in labs, or concerning findings. Pt was started on antibx by pulm for bronchitis as the hemoptysis could be secondary to it. Otherwise, she is medically cleared for discharge from hospital. F/u as directed. Condition: Good - Instructions Diet, Activity, Other Instructions: resume prev diet, activity antibiotic x 5 days f/u as directed. ent outpt for laryngoscopy Referrals: Osman Borja MD [Staff Physician] - 2 Weeks Priya Baugh MD [Primary Care Provider] - 1 Week Raymond Freeman MD [Staff Physician] - 1 Week (ENT f/u ) Disposition: HOME - Home Medications Comprehensive Discharge Medication List: Ambulatory Orders Levothyroxine [Synthroid -] 75 mcg PO DAILY 06/11/11 Metoprolol Succinate [Toprol XL -] 50 mg PO DAILY 06/27/12 Cholecalciferol (Vitamin D3) [Vitamin D3] 32,000 unit PO DAILY 09/17/14 Albuterol Sulfate Inhaler - [Ventolin HFA Inhaler -] 1 puff IH DAILY 06/05/17 Atorvastatin Ca [Lipitor] 40 mg PO HS 06/05/17 Lisinopril/Hydrochlorothiazide [Zestoretic 10-12.5 mg Tablet] 1 each PO DAILY Rivaroxaban [Xarelto -] 20 mg PO DAILY 06/05/17 Tiotropium [place] [Spiriva] 1 inh IH DAILY 06/05/17 Levofloxacin [Levaquin] 500 mg PO DAILY 5 Days #5 tablet 07/15/17
[2017-07-15 15:00] VITALS: BP 104/73; PULSE 75; TEMP 98
--- NOTE | 2017-07-15 20:39 | CON.ENT ---
Consult Consult Specialty:: otolaryngology Reason for Consultation:: hemoptysis - History of Present Illness Chief Complaint: coughed up blood History of Present Illness: 77F recently hospitalized for PNA admitted over the weekend after an episodes of hemoptysis. She woke up at night with blood in her mouth. She spit it out, went to the bathroom and then felt something low in her chest that she started to cough up and there was more blood. There are estimates of a few tablespoons of blood, though vague. She denies antecedent coughing, stomach pains, reflux, sore throat, dysphagia, dysphonia, TB. She is a nonsmoker. No history of epistaxis, and she doesn't believe it it coming form her gums. She has been anticogulated for atrial fibrillation. - History Source History Provided By: Patient - Past Medical History SHADE CLASSIFIER: Yes: CVA Cardio/Vascular: Yes: AFIB, HTN, Hyperlipdemia Pulmonary: Yes: COPD - Alcohol/Substance Use Hx Alcohol Use: No - Smoking History Smoking history: Former smoker Have you smoked in the past 12 months: No If you are a former smoker, when did you quit?: 1989 Home Medications - Allergies Allergies/Adverse Reactions: Allergies Allergy/AdvReac Type Severity Reaction Status Date / Time shellfish derived Allergy Verified 07/12/17 17:18 - Home Medications Home Medications: Ambulatory Orders Levothyroxine [Synthroid -] 75 mcg PO DAILY 06/11/11 Metoprolol Succinate [Toprol XL -] 50 mg PO DAILY 06/27/12 Cholecalciferol (Vitamin D3) [Vitamin D3] 32,000 unit PO DAILY 09/17/14 Atorvastatin Ca [Lipitor] 40 mg PO HS 06/05/17 Lisinopril/Hydrochlorothiazide [Zestoretic 10-12.5 mg Tablet] 1 each PO DAILY Rivaroxaban [Xarelto -] 20 mg PO DAILY 06/05/17 Tiotropium [place] [Spiriva] 1 inh IH DAILY 06/05/17 Albuterol Sulfate Inhaler - [Ventolin HFA Inhaler -] 1 puff IH DAILY #1 inhaler 07/15/17 Levofloxacin [Levaquin] 500 mg PO DAILY 5 Days #5 tablet 07/15/17 Review of Systems - Review of Systems HENT: denies: Difficult Swallowing, Epistaxis, Gingival Bleeding, Throat Pain Physical Exam-ENT Vital Signs: Vital Signs Temperature 98.0 F 07/15/17 13:10 Pulse Rate 75 07/15/17 13:10 Respiratory Rate 18 07/15/17 13:10 Blood Pressure 104/73 07/15/17 13:10 O2 Sat by Pulse Oximetry (%) 94 L 07/15/17 12:00 Constitutional: Yes: Well Nourished, No Distress Head: Yes: WNL Face: Yes: WNL Eyes: Yes: WNL Nose: Yes: WNL, Septum Deviated Nasal Passage: Yes: WNL Oral/Pharynx: Yes: WNL, Other (fair dentition. no overt inflammation/bleeding source. Tonsils recessed. posterior oropharynx clear.) Outer Ear: Yes: WNL Ear Canal: Yes: Cerumen Neck: Yes: WNL Neurological: Yes: Other (cn3-7,11,12 grossly intact, symmetrical) Imaging - Results Cat Scan: Report Reviewed (CT Chest) Problem List - Problems (1) Hemoptysis Assessment/Plan: Limited episode of hemopytsis, has not recurred - Given CT findings and recent history of pneumonia, would suspect primary pulmonary etiology - After I introduced myself this morning, her first comments were "You're not going to do any tests on me now, are you?" She refuses endoscopy and would rather see me as an outpatient. She is aware my exam is limited without laryngoscopy. - I have given her my business card, and she will followup with me in the next week or so. She is to go to the ER sooner if needed. - Consider GI evaluation as indicated. Code(s): R04.2 - HEMOPTYSIS
--- NOTE | 2017-07-17 11:51 | EKG ---
Test Reason : Blood Pressure : / mmHG Vent. Rate : 075 BPM Atrial Rate : 047 BPM P-R Int : 000 ms QRS Dur : 090 ms QT Int : 392 ms P-R-T Axes : 000 -23 -24 degrees QTc Int : 437 ms ATRIAL FIBRILLATION NONSPECIFIC ST ABNORMALITY ABNORMAL ECG Confirmed by ENDER STUART MD ([id number]) on 07/17/2017 11:51:24 AM Referred By: Confirmed By:ENDER STUART MD
== END 2017-07-15 15:46 | disposition home or self-care (01) ==
LOC: JER 17:17 → JERBED 21:18 → J4S 07-13 09:53
PROVIDERS: ADMIT Internal Medicine; ATTEND Internal Medicine
PROC: 3E03329 Introduction of Other Anti-infective into Peripheral Vein, Percutaneous Approach (ICD-10-PCS; principal; 2017-07-12)
PROC: 3E0F7GC Introduction of Other Therapeutic Substance into Respiratory Tract, Via Natural or Artificial Opening (ICD-10-PCS; 2017-07-12)
DX: R04.2 Hemoptysis (principal); R77.8 Other specified abnormalities of plasma proteins; J44.9 Chronic obstructive pulmonary disease, unspecified; I10 Essential (primary) hypertension; I24.8 Other forms of acute ischemic heart disease; I48.2 Chronic atrial fibrillation; E78.5 Hyperlipidemia, unspecified; E03.9 Hypothyroidism, unspecified; Z86.73 Personal history of transient ischemic attack (TIA), and cerebral infarction without residual deficits; Z79.01 Long term (current) use of anticoagulants; Z91.013 Allergy to seafood; Z87.891 Personal history of nicotine dependence
CPT/HCPCS: 36415; 71046-TC-FY; 71275-TC; 80048; 80053; 82550; 84484; 85025; 85610; 85730; 86850; 86900; 86901; 93005; 93010; 94640; 96374; 99284-25; G0378

== ENCOUNTER 2017-08-30 10:49 | Emergency (ER) | payer OTHER, MEDICARE ==
[2017-08-30 11:03] VITALS: PULSE 76; BMI 37.5
--- NOTE | 2017-08-30 11:16 | PDOC ---
History of Present Illness - General History Source: Patient Exam Limitations: No Limitations - History of Present Illness Initial Comments: 08/30/17 11:46 Patient is a 77-year-old female with past medical history of Afib (on xarelto), HTN, HLD, CVA, hypothyroidism, who presents to the emergency department today with lower abdominal pain, diarrhea, and nausea since Saturday. Patient states that she believes she had food poisoning Saturday due to her nausea and diarrhea. However her pain increased over the past 2 days and she notes 1 episode of possible blood in the stool. Patient states she does have a history of polyps and is overdue for her colonoscopy. She currently states that her pain is in the left lower quadrant, she rates the pain a 4 out of 10. She states that the pain radiates to her back. Right now the pain is a dull ache. Denies fevers, chills, shortness of breath, difficulty breathing, chest pain, palpitations, frequency, urgency, hematuria and back pain. PCP: Dr. You GI: Dr. Benton <Birgit Maxwell - Last Filed: 08/30/17 11:45> <August Craven - Last Filed: 08/30/17 16:04> - General Chief Complaint: Pain Stated Complaint: SEVERE STOMACH PAIN Time Seen by Provider: 08/30/17 11:11 Past History - Past Medical History Anemia: No Asthma: No Cancer: No Cardiac Disorders: Yes (ASHD, SOB(HAD STRESS TEST) a.fib) CVA: No COPD: Yes (and bronchiectasis) CHF: No DVT: No Dementia: No Diabetes: No GI Disorders: Yes (DIVERTICULOSIS, COLON POLYPS) Disorders: No HTN: Yes Hypercholesterolemia: Yes Liver Disease: No Seizures: No Thyroid Disease: Yes - Surgical History Abdominal Surgery: No Appendectomy: No Cardiac Surgery: No Cholecystectomy: No Lung Surgery: No Neurologic Surgery: No Orthopedic Surgery: Yes (carpo-tunnel right hand) - Suicide/Smoking/Psychosocial Hx Smoking History: Never smoked Have you smoked in the past 12 months: No If you are a former smoker, when did you quit?: 1989 Hx Alcohol Use: No Drug/Substance Use Hx: No Substance Use Type: None Hx Substance Use Treatment: No <Birgit Maxwell - Last Filed: 08/30/17 11:45> <August Craven - Last Filed: 08/30/17 16:04> - Past Medical History Allergies/Adverse Reactions: Allergies Allergy/AdvReac Type Severity Reaction Status Date / Time shellfish derived Allergy Verified 08/30/17 10:59 Home Medications: Ambulatory Orders Levothyroxine [Synthroid -] 75 mcg PO DAILY 06/11/11 Metoprolol Succinate [Toprol XL -] 50 mg PO DAILY 06/27/12 Cholecalciferol (Vitamin D3) [Vitamin D3] 32,000 unit PO DAILY 09/17/14 Atorvastatin Ca [Lipitor] 40 mg PO HS 06/05/17 Lisinopril/Hydrochlorothiazide [Zestoretic 10-12.5 mg Tablet] 1 each PO DAILY Rivaroxaban [Xarelto -] 20 mg PO DAILY 06/05/17 Tiotropium O'Brien [Spiriva] 1 inh IH DAILY 06/05/17 Albuterol Sulfate Inhaler - [Ventolin HFA Inhaler -] 1 puff IH DAILY #1 inhaler 07/15/17 Levofloxacin [Levaquin] 500 mg PO DAILY 5 Days #5 tablet 07/15/17 Ciprofloxacin HCl [Cipro] 500 mg PO BID #14 tablet 08/30/17 metroNIDAZOLE [Flagyl -] 500 mg PO TID #21 tablet 08/30/17 Review of Systems - Review of Systems Able to Perform ROS?: Yes Comments:: 08/30/17 11:39 CONSTITUTIONAL: Absent: fever, chills, diaphoresis, generalized weakness, malaise, loss of appetite HEENT: Absent: rhinorrhea, nasal congestion, throat pain, throat swelling, difficulty swallowing, mouth swelling, ear pain, eye pain, visual Changes CARDIOVASCULAR: Absent: chest pain, loss of consciousness, palpitations, irregular heart rate, peripheral edema RESPIRATORY: Absent: cough, shortness of breath, dyspnea with exertion, orthopnea, wheezing, stridor, hemoptysis GASTROINTESTINAL: Present: abdominal pain, nausea, vomiting, diarrhea, possible blood in the stool. Absent: abdominal distension, constipation, melena, hematochezia GENITOURINARY: Absent: dysuria, frequency, urgency, hesitancy, hematuria, flank pain, genital pain MUSCULOSKELETAL: Absent: myalgia, arthralgia, joint swelling SKIN: Absent: rash, itching, pallor HEMATOLOGIC/IMMUNOLOGIC: Absent: easy bleeding, easy bruising, lymphadenopathy, frequent infections ENDOCRINE: Absent: unexplained weight gain, unexplained weight loss, heat intolerance, cold intolerance NEUROLOGIC: Absent: headache, focal weakness or paresthesias, dizziness, unsteady gait, seizure, mental status changes, bladder or bowel incontinence PSYCHIATRIC: Absent: anxiety, depression, suicidal or homicidal ideation, hallucinations. Is the patient limited Kazakh proficient: No <Birgit Maxwell - Last Filed: 08/30/17 11:45> *Physical Exam - Vital Signs Last Vital Signs Temp Pulse Resp BP Pulse Ox 98.4 F 76 16 136/65 96 08/30/17 11:00 08/30/17 11:00 08/30/17 11:00 08/30/17 11:00 08/30/17 11:00 - Physical Exam Comments: 08/30/17 11:41 GENERAL: Well developed, well nourished. Awake and alert. No acute distress. Sitting in exam bed comfortably, HEENT: Normocephalic, atraumatic. PERRLA, EOMI. No conjunctival pallor. Sclera are non- icteric. Moist mucous membranes. Oropharynx is clear. NECK: Supple. Full ROM. No JVD. Carotid pulses 2+ and symmetric, without bruits. No thyromegaly. No lymphadenopathy. CARDIOVASCULAR: Regular rate and rhythm. No murmurs, rubs, or gallops. Distal pulses are 2+ and symmetric. PULMONARY: No evidence of respiratory distress. Lungs clear to auscultation bilaterally. No wheezing, rales or rhonchi. ABDOMINAL: TTP of the LLQ with guarding. Soft. Non-distended. No rebound. No organomegaly. Normoactive bowel sounds. Rectal exam: MUSCULOSKELETAL Normal range of motion at all joints. No bony deformities or tenderness. No CVA tenderness. EXTREMITIES: No cyanosis. No clubbing. No edema. No calf tenderness. SKIN: Warm and dry. Normal capillary refill. No rashes. No jaundice. NEUROLOGICAL: Alert, awake, appropriate. Cranial nerves 2-12 intact. No deficits to light touch and temperature in face, upper extremities and lower extremities. No motor deficits in the in face, upper extremities and lower extremities. Normoreflexic in the upper and lower extremities. Normal speech. Toes are down- going bilaterally. Gait is normal without ataxia. PSYCHIATRIC: Cooperative. Good eye contact. Appropriate mood and affect. <HansGutierrezBirgit - Last Filed: 08/30/17 11:45> - Vital Signs Last Vital Signs Temp Pulse Resp BP Pulse Ox 98.4 F 76 16 136/65 96 08/30/17 11:00 08/30/17 11:00 08/30/17 11:00 08/30/17 11:00 08/30/17 11:00 <August Craven - Last Filed: 08/30/17 16:04> ED Treatment Course - LABORATORY CBC & Chemistry Diagram: 08/30/17 11:55 08/30/17 11:55 - ADDITIONAL ORDERS Additional order review: Laboratory Results 08/30/17 08/30/17 08/30/17 12:19 11:55 11:55 PT with INR INR Sodium Potassium Chloride Carbon Dioxide Anion Gap BUN Creatinine Creat Clearance w eGFR Random Glucose Lactic Acid 1.3 Calcium Total Bilirubin AST ALT Alkaline Phosphatase Total Protein Albumin Urine Color Yellow Urine Appearance Clear Urine pH 5.0 Ur Specific Ora 1.019 Urine Protein Negative Urine Glucose (UA) Negative Urine Ketones Negative Urine Blood 1+ H Urine Nitrite Negative Urine Bilirubin Negative Urine Urobilinogen Negative Ur Leukocyte Esterase 1+ H Urine WBC (Auto) 11 Urine RBC (Auto) 1 Ur Epithelial Cells Rare Urine Mucus Moderate Stool Occult Blood Blood Type AB POSITIVE Antibody Screen Negative 08/30/17 08/30/17 08/30/17 11:55 11:55 11:53 PT with INR 20.50 H INR 1.81 H Sodium 142 Potassium 3.6 Chloride 105 Carbon Dioxide 31 Anion Gap 6 L BUN 17 Creatinine 0.8 Creat Clearance w eGFR > 60 Random Glucose 106 Lactic Acid Calcium 9.6 Total Bilirubin 2.4 H AST 18 ALT 26 Alkaline Phosphatase 74 Total Protein 7.1 Albumin 3.8 Urine Color Urine Appearance Urine pH Ur Specific Ora Urine Protein Urine Glucose (UA) Urine Ketones Urine Blood Urine Nitrite Urine Bilirubin Urine Urobilinogen Ur Leukocyte Esterase Urine WBC (Auto) Urine RBC (Auto) Ur Epithelial Cells Urine Mucus Stool Occult Blood Negative Blood Type Antibody Screen 08/30/17 11:55 RBC 4.39 MCV 90.0 MCHC 34.2 RDW 14.6 MPV 9.5 Neutrophils % 79.0 D Lymphocytes % 14.6 D Monocytes % 5.6 Eosinophils % 0.4 Basophils % 0.4 - Medications Given in the ED: ED Medications Discontinued Medications Generic Name Dose Route Start Last Admin Trade Name Jude PRN Reason Stop Dose Admin Ondansetron HCl 4 mg 08/30/17 11:37 08/30/17 12:03 Dax Odt - SL 08/30/17 11:38 Not Given ONCE ONE <HerberAugust - Last Filed: 08/30/17 16:04> Medical Decision Making - Medical Decision Making Pt. signed out to me. CAT scan results as dictated. Mild colitis. . Abdominal examination benign no rebound no guarding patient well-appearing tolerating fluids by mouth. Discussed with patient admission versus trial at home with by mouth antibiotics. Patient would like short trial of antibiotics at home we'll discharge with Cipro Flagyl for 7 days with GI follow-up Findings, need for follow-up and strict return instructions discussed with patient. <HerberAugust - Last Filed: 08/30/17 16:04> *DC/Admit/Observation/Transfer <Birgit Maxwell - Last Filed: 08/30/17 11:45> - Discharge Dispostion Decision to Admit order: No <HerberAugust - Last Filed: 08/30/17 16:04> Diagnosis at time of Disposition: Colitis - Discharge Dispostion Disposition: HOME - Referrals Referrals: Hodan Benton MD [Staff Physician] - - Patient Instructions Printed Discharge Instructions: DI for Colitis Additional Instructions: Take Cipro and Flagyl as prescribed. Take an [id number] probiotic as directed on package. Drink plenty of fluids. Take [id number] Tylenol as directed on package as needed for pain. Follow-up with Dr. Malagon gastroenterology on Saturday of next week. Return to the emergency department immediately for any severe worsening symptoms fever vomiting or for any concerns.
[2017-08-30] MEDS ORDERED: ONDANSETRON *ODT* 4 MG TABLET SL ONE (11:37)
[2017-08-30] MEDS ORDERED: ONDANSETRON *ODT* 4 MG TABLET ONE (11:49)
[2017-08-30 12:18] LABS: BASO % 0.4 % (0-2.0); EOS % 0.4 % (0-4.5); HEMATOCRIT 39.5 % (32.4-45.2); HEMOGLOBIN 13.5 GM/dL (10.7-15.3); LYMPH % 14.6 % (8-40); MCH 30.8 pg (25.7-33.7); MCHC 34.2 g/dl (32.0-36.0); MEAN PLT VOLUME 9.5 fl (7.5-11.1); MONO % 5.6 % (3.8-10.2); PLATELET COUNT 200 K/MM3 (134-434); RBC 4.39 M/mm3 (3.60-5.2); RDW 14.6 % (11.6-15.6); WHITE BLOOD COUNT 8.8 K/mm3 (4.0-10.0)
[2017-08-30 12:30] LABS: ALBUMIN 3.8 g/dl (3.4-5.0); ALK PHOS 74 U/L (45-117); ANION GAP 6 (8-16); BILIRUBIN,TOTAL 2.4 mg/dL (0.2-1.0); BLOOD UREA NITROGEN 17 mg/dL (7-18); CALCIUM 9.6 mg/dL (8.5-10.1); CHLORIDE 105 mmol/L (98-107); CO2 31 mmol/L (21-32); CREATININE 0.8 mg/dL (0.55-1.02); GLUCOSE,RANDOM 106 mg/dL (74-106); POTASSIUM 3.6 mmol/L (3.5-5.1); SGOT/AST 18 U/L (15-37); SGPT/ALT 26 U/L (12-78); SODIUM 142 mmol/L (136-145); TOT PROT 7.1 g/dl (6.4-8.2)
[2017-08-30 12:40] LABS: URINE APPEARANCE CLEAR; URINE BILIRUBIN NEGATIVE (<2.0 mg/dL); URINE COLOR YELLOW; URINE GLUCOSE (UA) NEGATIVE (NEGATIVE); URINE KETONE NEGATIVE (NEGATIVE); URINE NITRITE NEGATIVE (NEGATIVE); URINE PROTEIN NEGATIVE (NEGATIVE); URINE UROBILINOGEN NEGATIVE mg/dL (0.2-1.0)
[2017-08-30 12:48] LABS: INR 1.81 (0.82-1.09); PROTHROMBIN TIME (PATIENT) 20.5 SEC (9.7-13.0)
[2017-08-30 13:01] LABS: URINE LEUK ESTERASE 1+ (NEGATIVE)
[2017-08-30 13:03] LABS: EPI CELLS RARE /HPF (FEW); URINE MUCUS MODERATE
[2017-08-30 17:15] VITALS: BP 147/87; TEMP 97.7
--- NOTE | 2017-08-31 10:08 | EKG ---
Test Reason : Blood Pressure : / mmHG Vent. Rate : 071 BPM Atrial Rate : 110 BPM P-R Int : 000 ms QRS Dur : 090 ms QT Int : 386 ms P-R-T Axes : 000 -16 -26 degrees QTc Int : 419 ms ATRIAL FIBRILLATION ABNORMAL ECG WHEN COMPARED WITH ECG OF 13-JUL-2017 06:16, NO SIGNIFICANT CHANGE WAS FOUND Confirmed by ENDER STUART MD ([id number]) on 08/31/2017 10:08:07 AM Referred By: Confirmed By:ENDER STUART MD
== END 2017-08-30 17:12 | disposition home or self-care (01) ==
LOC: JER 10:49
DX: K52.9 Noninfective gastroenteritis and colitis, unspecified (principal); I25.10 Atherosclerotic heart disease of native coronary artery without angina pectoris; I48.91 Unspecified atrial fibrillation; Z79.01 Long term (current) use of anticoagulants; I10 Essential (primary) hypertension; E78.5 Hyperlipidemia, unspecified; E03.9 Hypothyroidism, unspecified; Z86.73 Personal history of transient ischemic attack (TIA), and cerebral infarction without residual deficits; Z86.010 Personal history of colon polyps
CPT/HCPCS: 36415; 71046-TC-FY; 74177-TC; 80053; 81003; 81015; 82272; 83605; 85025; 85610; 86850; 86900; 86901; 87086; 93005; 93010; 99283-25